=== PATIENT | female | born 1940 | race Caucasian/White ===

== ENCOUNTER 2017-04-15 16:14 | Emergency (ER) | payer MEDICARE, BC ==
--- NOTE | 2017-04-15 16:54 | EDM.PDOC ---
ED HPI GENERAL MEDICAL PROBLEM - General Chief Complaint: Gastrointestinal Problem Stated Complaint: wretching, chronic R shoulder pain Time Seen by Provider: 04/15/17 16:25 Source of Information: Reports: Patient, Family, Old Records History Limitations: Reports: No Limitations - History of Present Illness INITIAL COMMENTS - FREE TEXT/NARRATIVE: Makenzie comes to [facility] ED with a relapse of wretching over the past 2 weeks, worse since New Day. There is no emesis, gas, belching or burping. Sxs have been chronic and intermittent over the past 10 years since a Lap Johnathan with reported vagotomy were performed. She has seen GI specialists in the past without reported remedy. She has been med compliant with GI meds including Protonix, but has been off the Compazine for several months "because we didn't think she needed it". . She also reports chronic shoulder pain that seems worse on the R side lately, and is requesting a therapeutic injection. Right Shoulder Pain Score (Numeric/FACES): 6 - Related Data Allergies Allergy/AdvReac Type Severity Reaction Status Date / Time acetaminophen Allergy Cannot Verified 04/17/16 09:55 [From Darvocet-N] Remember bupropion [From Wellbutrin] Allergy Cannot Verified 04/17/16 09:55 Remember ciprofloxacin Allergy Cannot Verified 04/17/16 09:55 Remember codeine Allergy Hives Verified 04/17/16 09:55 cyclobenzaprine Allergy Cannot Verified 04/17/16 09:55 [Cyclobenzaprine] Remember diclofenac sodium Allergy Cannot Verified 04/17/16 09:55 [From Arthrotec 50] Remember feathers Allergy Cannot Verified 04/17/16 09:55 Remember flu vaccine ts (66 Allergy Cannot Verified 04/17/16 09:55 yr+) Remember [From Fluzone High-Dose (PF)] gabapentin [From Neurontin] Allergy Cannot Verified 04/17/16 09:55 Remember ibuprofen [From Motrin] Allergy Cannot Verified 04/17/16 09:55 Remember iodine Allergy Airway Verified 04/17/16 09:55 Tightness meperidine HCl [From Demerol] Allergy Cannot Verified 04/17/16 09:55 Remember misoprostol Allergy Cannot Verified 04/15/17 16:26 [From Arthrotec 50] Remember Penicillins Allergy Cannot Verified 04/15/17 16:26 Remember propoxyphene Allergy Cannot Verified 04/15/17 16:26 [From Darvocet-N] Remember pseudoephedrine HCl Allergy Cannot Verified 04/15/17 16:26 [From Advil Cold & Sinus] Remember shellfish derived Allergy Anaphylactic Verified 04/15/17 16:26 Shock Sulfa (Sulfonamide Allergy Hives Verified 04/15/17 16:26 Antibiotics) tetanus toxoid, adsorbed Allergy Cannot Verified 04/15/17 16:26 Remember venom-honey bee Allergy Anaphylactic Verified 04/15/17 16:26 Shock aspirin AdvReac STOMACH Verified 04/15/17 16:26 BLEEDING WITH TOO MUCH bupropion HCl AdvReac Cannot Verified 04/15/17 16:26 [From Wellbutrin] Remember celecoxib [From Celebrex] AdvReac Nausea and Verified 04/15/17 16:26 Vomiting clarithromycin AdvReac Diarrhea Verified 04/15/17 16:26 morphine AdvReac Hallucinati Verified 04/15/17 16:26 ons iodine-isopropyl Allergy Severe THROAT Uncoded 02/26/16 19:08 SWELLS SHUT EGGS Allergy Difficulty Uncoded 02/26/16 19:08 Breathing Home Meds: Home Meds ClonazePAM [KlonoPIN] 2 mg PO TID 11/13/13 [History] Mirtazapine [Remeron] 30 mg PO BEDTIME 11/13/13 [History] Pantoprazole [ProTONIX] 40 mg PO DAILY 05/01/14 [History] Calcium Carb/Vitamin D3/Vit K1 [Viactiv Soft Chew] 1 tab PO DAILY 01/22/16 [ History] Carboxymethylcellulos/Glycerin [Refresh Optive] 3 drop EYEBOTH DAILY 01/22/16 [ History] Cliradex 1 applic EYEBOTH Q7D 01/22/16 [History] Glucosam/MSM/Chond/Hyaluron Ac [Sv Glucosamine-Chondroitin Tab] 2 tab PO DAILY 01/22/16 [History] Ketotifen [Ketotifen 0.025% Ophth Soln] 1 drop EYEBOTH TID 01/22/16 [History] Loratadine 10 mg PO DAILY 01/22/16 [History] Lutein/Min/Vit C/Vit E Acetate [Ocuvite Lutein] 1 cap PO DAILY 01/22/16 [History ] Melatonin 10 mg PO BEDTIME 01/22/16 [History] Multivital 1 tab PO DAILY 01/22/16 [History] Potassium Bicarbonate/Cit Ac [Effer-K] 25 meq PO DAILY 01/22/16 [History] Prochlorperazine Maleate [Compazine] 10 mg PO QIDACANDBED 01/22/16 [History] Rosuvastatin [Crestor] 10 mg PO BEDTIME 01/22/16 [History] Sucralfate 1 gm PO DAILY 01/22/16 [History] Topiramate [Topamax] 100 mg PO BEDTIME 01/22/16 [History] cycloSPORINE [Restasis] 1 drop EYEBOTH BID 01/22/16 [History] lamoTRIgine [LaMICtal] 150 mg PO DAILY@1200 01/22/16 [History] traMADol [Ultram] 50 mg PO Q6H PRN #60 tablet 02/05/16 [Rx] Docusate Sodium/Sennosides [Senokot-S] 1 tab PO DAILY 02/26/16 [History] Zolpidem Tartrate [Ambien] 30 mg PO BEDTIME 02/26/16 [History] Pregabalin [Lyrica] 100 mg PO BID #30 cap 04/17/16 [Rx] Prochlorperazine [Compazine] 10 mg PO BID #30 tab MDD QID 04/15/17 [Rx] Past Medical History HEENT History: Reports: Cataract, Impaired Vision Cardiovascular History: Reports: Afib, High Cholesterol, Hypertension Respiratory History: Reports: SOB Gastrointestinal History: Reports: Other (See Below) Other Gastrointestinal History: cyclic retching 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: Musculoskeletal History: Reports: Other (See Below) Other Musculoskeletal History: rt shoulder pain Neurological History: Reports: CVA, TIA, Other (See Below) Other Neuro History: "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 and est[place] polio Psychiatric History: Reports: Anxiety, Depression Endocrine/Metabolic History: Reports: Diabetes, Type II Dermatologic History: Reports: Other (See Below) Other Dermatologic History: left ear skin leison - Infectious Disease History Infectious Disease History: Reports: Chicken Pox, Shingles - Past Surgical History HEENT Surgical History: Reports: Cataract Surgery GI Surgical History: Reports: Appendectomy, Johnathan Fundoplication Musculoskeletal Surgical History: Reports: Knee Replacement Social & Family History - Family History Family Medical History: Noncontributory - Tobacco Use Smoking Status *Q: Never Smoker Years of Tobacco use: 7 Second Hand Smoke Exposure: No - Caffeine Use Caffeine Use: Reports: None - Alcohol Use Days Per Week of Alcohol Use: 0 - Recreational Drug Use Recreational Drug Use: No ED ROS GENERAL - Review of Systems Review Of Systems: See Below Constitutional: Reports: Malaise, Decreased Appetite HEENT: Reports: No Symptoms Respiratory: Reports: No Symptoms Cardiovascular: Reports: No Symptoms Endocrine: Reports: No Symptoms GI/Abdominal: Reports: Decreased Appetite, Distension, Other (eructation) : Reports: No Symptoms Musculoskeletal: Reports: Shoulder Pain (chronic right) Skin: Reports: No Symptoms Psychiatric: Reports: Anxiety, Depression Hematologic/Lymphatic: Reports: No Symptoms Immunologic: Reports: No Symptoms ED EXAM, GI/ABD - Physical Exam Exam: See Below Exam Limited By: No Limitations General Appearance: Alert, WD/WN, Anxious, Mild Distress Eyes: Bilateral: Normal Appearance, EOMI Ears: Normal External Exam Nose: Normal Inspection Throat/Mouth: Normal Inspection, Normal Lips, Normal Teeth, Normal Oropharynx, No Airway Compromise Head: Atraumatic, Normocephalic Neck: Normal Inspection, Supple, Non-Tender, Full Range of Motion Respiratory/Chest: No Respiratory Distress, Lungs Clear, No Accessory Muscle Use , Chest Non-Tender Cardiovascular: Regular Rate, Rhythm, No Edema, No Murmur GI/Abdominal Exam: Soft, Non-Tender, No Organomegaly, No Mass, Distended (mild) , Abnormal Bowel Sounds (increased) (Female) Exam: Deferred Rectal (Female) Exam: Deferred Back Exam: Normal Inspection Extremities: Normal Inspection Neurological: Alert, Oriented, CN II-XII Intact, No Motor/Sensory Deficits Psychiatric: Anxious Skin Exam: Warm, Dry, Intact, Normal Color Lymphatic: No Adenopathy Course - Vital Signs Text/Narrative:: Following assessment at the [facility] ED, an IV route was secured with an indwelling veniport. She was administered 1L NS w 20 meq KCL over the next 2 hours, KCL 40 meq tab po, and Compazine 10 mg IM. Her eructations subsided over the next hour. Chronic R shoulder pain was managed with Hydrocodone 5/325 tab. Screening labs were reviewed following redraw because of suspected hemodilution through the veniport; acid-base status was stable. Last Recorded V/S: Last Vital Signs Temp 36.8 C 04/15/17 16:26 Pulse 61 04/15/17 19:29 Resp 14 04/15/17 19:29 BP 133/73 04/15/17 19:29 Pulse Ox 97 04/15/17 19:29 - Orders/Labs/Meds Orders: Active Orders 24 hr Category Date Time Status IRON AND IRON BINDING CAPACITY [REF] Stat Lab 04/15/17 17:45 Received RETIC AUTOMATED WITHOUT IRF [REF] Stat Lab 04/15/17 17:45 Received Labs: Laboratory Tests 04/15/17 04/15/17 04/15/17 Range/Units 17:05 17:05 17:45 WBC 3.2 L (4.5-12.0) X10-3/uL RBC 2.99 L (3.23-5.20) x10(6)uL Hgb 6.4 L* D (11.5-15.5) g/dL Hct 30.3 D (30.0-51.3) % MCV 101.5 H (80-96) fL MCH 21.3 L (27.7-33.6) pg MCHC 21.0 L (32.2-35.4) g/dL RDW 12.5 (11.5-15.5) % Plt Count 168 (125-369) X10(3)uL MPV 7.8 (7.4-10.4) fL Neut % (Auto) 45.8 L (46-82) % Lymph % (Auto) 40.4 H (13-37) % [place] % (Auto) 10.9 (4-12) % Eos % (Auto) 2 (1.0-5.0) % Baso % (Auto) 1 (0-2) % Neut # (Auto) 1.4 L (1.6-8.3) # Lymph # (Auto) 1.3 (0.6-5.0) # [place] # (Auto) 0.4 (0.0-1.3) # Eos # (Auto) 0.1 (0.0-0.8) # Baso # (Auto) 0.0 (0.0-0.2) # ABG pH (7.35-7.45) ABG pCO2 (35-45) mmHg ABG pO2 (83-108) mmHg ABG HCO3 (22-26) mmol/L ABG O2 Saturation (96-97) % ABG Base Excess (-2-2) Maulik Test O2 Delivery Device Sodium 151 H 144 (135-145) mmol/L Potassium 2.0 L* 3.7 D (3.5-5.3) mmol/L Chloride 121 H* 109 D (100-110) mmol/L Carbon Dioxide 17 L 24 (21-32) mmol/L BUN 10 14 (7-18) mg/dL Creatinine 0.6 1.2 H (0.55-1.02) mg/dL Est Cr Clr Drug Dosing 65.98 32.99 mL/min Estimated GFR (MDRD) > 60 44 L (>60) BUN/Creatinine Ratio 16.7 11.7 (9-20) Glucose 90 109 (80-116) mg/dL Calcium 5.2 L* 8.7 D (8.6-10.2) mg/dL Magnesium 2.0 (1.8-2.5) mg/dL Total Bilirubin 0.2 (0.1-1.3) mg/dL AST 15 (5-25) IU/L ALT 25 (12-36) U/L Alkaline Phosphatase 44 L (56-112) IU/L Creatine Kinase 35 L (60-160) IU/L Total Protein 5.4 L (6.0-8.0) g/dL Albumin 2.7 L (3.2-4.6) g/dL Globulin 2.7 g/dL Albumin/Globulin Ratio 1.0 04/15/17 04/15/17 Range/Units 17:45 17:52 WBC (4.5-12.0) X10-3/uL RBC (3.23-5.20) x10(6)uL Hgb 11.9 D (11.5-15.5) g/dL Hct 36.4 (30.0-51.3) % MCV (80-96) fL MCH (27.7-33.6) pg MCHC (32.2-35.4) g/dL RDW (11.5-15.5) % Plt Count (125-369) X10(3)uL MPV (7.4-10.4) fL Neut % (Auto) (46-82) % Lymph % (Auto) (13-37) % [place] % (Auto) (4-12) % Eos % (Auto) (1.0-5.0) % Baso % (Auto) (0-2) % Neut # (Auto) (1.6-8.3) # Lymph # (Auto) (0.6-5.0) # [place] # (Auto) (0.0-1.3) # Eos # (Auto) (0.0-0.8) # Baso # (Auto) (0.0-0.2) # ABG pH 7.41 (7.35-7.45) ABG pCO2 36 (35-45) mmHg ABG pO2 87 (83-108) mmHg ABG HCO3 22 (22-26) mmol/L ABG O2 Saturation 97 (96-97) % ABG Base Excess -1.6 (-2-2) Maulik Test Passed O2 Delivery Device Room air Sodium (135-145) mmol/L Potassium (3.5-5.3) mmol/L Chloride (100-110) mmol/L Carbon Dioxide (21-32) mmol/L BUN (7-18) mg/dL Creatinine (0.55-1.02) mg/dL Est Cr Clr Drug Dosing mL/min Estimated GFR (MDRD) (>60) BUN/Creatinine Ratio (9-20) Glucose (80-116) mg/dL Calcium (8.6-10.2) mg/dL Magnesium (1.8-2.5) mg/dL Total Bilirubin (0.1-1.3) mg/dL AST (5-25) IU/L ALT (12-36) U/L Alkaline Phosphatase (56-112) IU/L Creatine Kinase (60-160) IU/L Total Protein (6.0-8.0) g/dL Albumin (3.2-4.6) g/dL Globulin g/dL Albumin/Globulin Ratio Meds: Medications Discontinued Medications Generic Name Dose Route Start Last Admin Trade Name Freq PRN Reason Stop Dose Admin Hydrocodone Bitart/Acetaminophen 1 tab 04/15/17 18:34 04/15/17 18:38 [place] 325-5 Mg PO 04/15/17 18:35 1 tab ONETIME ONE Administration Heparin Sodium (Porcine) 500 units 04/15/17 17:12 04/15/17 19:24 Heparin Lock Flush 100 Units/Ml FLUSH 500 units ASDIRECTED PRN Administration flush port Sodium Chloride 1,000 mls @ 500 mls/hr 04/15/17 17:15 04/15/17 17:21 Normal Saline IV 500 mls/hr ASDIRECTED JUANA Administration Potassium Chloride/Sodium Chloride 1,000 mls @ 999 mls/hr 04/15/17 17:45 12/23 17:53 Normal Saline With 20 Meq Kcl IV 999 mls/hr ASDIRECTED JUANA Administration Sodium Chloride 250 mls @ 100 mls/hr 04/15/17 17:45 Normal Saline IV ASDIRECTED JUANA Potassium Chloride 40 meq 04/15/17 17:38 04/15/17 17:55 Klor-Con M20 PO 04/15/17 17:39 40 meq ONETIME ONE Administration Prochlorperazine Edisylate 10 mg 04/15/17 17:12 04/15/17 17:22 Compazine IM 04/15/17 17:13 10 mg ONETIME ONE Administration Sodium Chloride 10 ml 04/15/17 17:10 04/15/17 19:27 Saline Flush FLUSH 10 ml ASDIRECTED PRN Administration flush port Departure - Departure Time of Disposition: 20:30 Disposition: Home, Self-Care 01 Condition: Good Clinical Impression: Eructation, Chronic right shoulder pain - Discharge Information Prescriptions: Prochlorperazine [Compazine] 10 mg PO BID #30 tab MDD QID Referrals: Sissy Parks, PRINT FINISHING WORKER [Primary Care Provider] - Forms: ED Department Discharge - Problem List & Annotations (1) Eructation SNOMED Code(s): 925496230 Code(s): R14.2 - ERUCTATION Status: Acute Annotation/Comment:: I dispensed Compazine 10mg qam and qpm as prevention of relapse of eructation. She has been on this in the past, but discontinued last year when asx. (2) Hypokalemia SNOMED Code(s): 50098193 Code(s): E87.6 - HYPOKALEMIA Status: Acute Annotation/Comment:: Makenzie received KCl po and IV during ED visit, and can resume KCl po per PCP. (3) Shoulder joint pain SNOMED Code(s): 725044641 Code(s): M25.519 - PAIN IN UNSPECIFIED SHOULDER Status: Chronic Annotation/Comment:: Tramadol and Tylenol prn. continued home ROM exercises and home OT through [facility] for help with ADLs such as ROM, strengthen, cares for knee and dressing. I suggested an Orthopedic Consult regarding R shoulder pain, and an appt will be pursued on her behalf. - Problem List Review Problem List Initiated/Reviewed/Updated: Yes - My Orders Last 24 Hours: My Active Orders 04/15/17 17:45 IRON AND IRON BINDING CAPACITY [REF] Stat RETIC AUTOMATED WITHOUT IRF [REF] Stat - Assessment/Plan Last 24 Hours: My Active Orders 04/15/17 17:45 IRON AND IRON BINDING CAPACITY [REF] Stat RETIC AUTOMATED WITHOUT IRF [REF] Stat Plan: Follow up with PCP.
[2017-04-15] MEDS ORDERED: Prochlorperazine 10 MG/2 ML SDV IM ONE (17:12)
[2017-04-15] MEDS: Sodium Chloride 0.9% 10 ML Syringe FLUSH PRN ×2 (17:14→19:27)
[2017-04-15] MEDS ORDERED: Sodium Chloride 0.9% 1,000 ML IV SCH (17:15)
[2017-04-15] MEDS ORDERED: Potassium Chloride 20 MEQ Tab.ER PO ONE (17:38)
[2017-04-15] MEDS ORDERED: Sodium Chloride 0.9% 250 ML IV SCH (17:45)
[2017-04-15] MEDS ORDERED: NS + KCl 20mEq/L 1,000 ML IV SCH (17:45)
[2017-04-15] MEDS ORDERED: Acetaminophen/HYDROcodone 325-5 MG Tab PO ONE (18:34)
[2017-04-15 19:30] VITALS: BP 133/73
[2017-04-20 10:14] LABS: UNSATURATED IRON BIND CAPACITY 151 ug/dL (112-347)
== END 2017-04-15 19:28 | disposition home or self-care (01) ==
LOC: FB.ED 16:14
DX: M25.511 Pain in right shoulder (principal); G89.29 Other chronic pain; R14.2 Eructation; I10 Essential (primary) hypertension; E78.00 Pure hypercholesterolemia, unspecified; E11.9 Type 2 diabetes mellitus without complications; F32.9 Major depressive disorder, single episode, unspecified; Z79.899 Other long term (current) drug therapy; Z88.1 Allergy status to other antibiotic agents; Z88.2 Allergy status to sulfonamides; Z88.7 Allergy status to serum and vaccine; Z88.8 Allergy status to other drugs, medicaments and biological substances; Z91.030 Bee allergy status; Z91.013 Allergy to seafood; Z91.012 Allergy to eggs; Z88.5 Allergy status to narcotic agent; Z88.6 Allergy status to analgesic agent; Z88.0 Allergy status to penicillin; Z91.048 Other nonmedicinal substance allergy status
CPT/HCPCS: 80048; 80053; 82550; 82803; 83540; 83550; 83735; 85014; 85018; 85025; 85045; 96361; 96365; 96366; 96372; 99284; A9270; J0780; J1642; J3480; J7040; J7050; 36600

== ENCOUNTER 2017-05-11 11:13 | Emergency (ER) | payer MEDICARE, BC ==
--- NOTE | 2017-05-11 12:30 | EDM.PDOC ---
ED HPI GENERAL MEDICAL PROBLEM - General Chief Complaint: Genitourinary Problem Stated Complaint: BLADDER INFECTION Time Seen by Provider: 05/11/17 11:13 Source of Information: Reports: Patient, Family History Limitations: Reports: No Limitations - History of Present Illness INITIAL COMMENTS - FREE TEXT/NARRATIVE: 77 y.o.w.deana came to the ED with painful urinations, which she has about every 4 months. No N/V/D or any other acute medical issues. BP 149/68 pulse 78 RR 18 Pulse ox 100% Temp 98.2 Onset Date: 05/08/17 Onset Time: 06:00 Duration: Day(s): Location: Reports: Pelvis Quality: Reports: Burning Severity: Mild Improves with: Reports: Rest Context: Reports: Other (frequent UTIs) Lower Abdominal Pain Score (Numeric/FACES): 4 - Related Data Allergies Allergy/AdvReac Type Severity Reaction Status Date / Time acetaminophen Allergy Cannot Verified 05/11/17 11:26 [From Darvocet-N] Remember bupropion [From Wellbutrin] Allergy Cannot Verified 05/11/17 11:26 Remember ciprofloxacin Allergy Cannot Verified 05/11/17 11:26 Remember codeine Allergy Hives Verified 05/11/17 11:26 cyclobenzaprine Allergy Cannot Verified 05/11/17 11:26 [Cyclobenzaprine] Remember diclofenac sodium Allergy Cannot Verified 05/11/17 11:26 [From Arthrotec 50] Remember feathers Allergy Cannot Verified 05/11/17 11:26 Remember flu vaccine ts (65 Allergy Cannot Verified 05/11/17 11:26 yr+) Remember [From Fluzone High-Dose (PF)] gabapentin [From Neurontin] Allergy Cannot Verified 05/11/17 11:26 Remember ibuprofen [From Motrin] Allergy Cannot Verified 05/11/17 11:26 Remember iodine Allergy Airway Verified 05/11/17 11:26 Tightness meperidine HCl [From Demerol] Allergy Cannot Verified 05/11/17 11:26 Remember misoprostol Allergy Cannot Verified 05/11/17 11:26 [From Arthrotec 50] Remember Penicillins Allergy Cannot Verified 05/11/17 11:26 Remember propoxyphene Allergy Cannot Verified 05/11/17 11:26 [From Darvocet-N] Remember pseudoephedrine HCl Allergy Cannot Verified 05/11/17 11:26 [From Advil Cold & Sinus] Remember shellfish derived Allergy Anaphylactic Verified 05/11/17 11:26 Shock Sulfa (Sulfonamide Allergy Hives Verified 05/11/17 11:26 Antibiotics) tetanus toxoid, adsorbed Allergy Cannot Verified 05/11/17 11:26 Remember venom-honey bee Allergy Anaphylactic Verified 05/11/17 11:26 Shock aspirin AdvReac STOMACH Verified 05/11/17 11:26 BLEEDING WITH TOO MUCH bupropion HCl AdvReac Cannot Verified 05/11/17 11:26 [From Wellbutrin] Remember celecoxib [From Celebrex] AdvReac Nausea and Verified 05/11/17 11:26 Vomiting clarithromycin AdvReac Diarrhea Verified 05/11/17 11:26 morphine AdvReac Hallucinati Verified 05/11/17 11:26 ons iodine-isopropyl Allergy Severe THROAT Uncoded 05/11/17 11:26 SWELLS SHUT EGGS Allergy Difficulty Uncoded 05/11/17 11:26 Breathing Home Meds: Home Meds ClonazePAM [KlonoPIN] 2 mg PO TID PRN 11/13/13 [History] Mirtazapine [Remeron] 30 mg PO BEDTIME 11/13/13 [History] Pantoprazole [ProTONIX] 40 mg PO DAILY 05/01/14 [History] Calcium Carb/Vitamin D3/Vit K1 [Viactiv Soft Chew] 1 tab PO DAILY 01/22/16 [ History] Carboxymethylcellulos/Glycerin [Refresh Optive] 3 drop EYEBOTH DAILY 01/22/16 [ History] Cliradex 1 applic EYEBOTH Q7D 01/22/16 [History] Glucosam/MSM/Chond/Hyaluron Ac [Sv Glucosamine-Chondroitin Tab] 2 tab PO DAILY 01/22/16 [History] Ketotifen [Ketotifen 0.025% Ophth Soln] 1 drop EYEBOTH DAILY 01/22/16 [History] Loratadine 10 mg PO DAILY 01/22/16 [History] Lutein/Min/Vit C/Vit E Acetate [Ocuvite Lutein] 1 cap PO DAILY 01/22/16 [History ] Melatonin 10 mg PO BEDTIME 01/22/16 [History] Multivital 1 tab PO DAILY 01/22/16 [History] Potassium Bicarbonate/Cit Ac [Effer-K] 25 meq PO DAILY 10/17/16 [History] Rosuvastatin [Crestor] 10 mg PO BEDTIME 01/22/16 [History] Sucralfate 1 gm PO DAILY 01/22/16 [History] Topiramate [Topamax] 100 mg PO BEDTIME 01/22/16 [History] cycloSPORINE [Restasis] 1 drop EYEBOTH DAILY 01/22/16 [History] lamoTRIgine [LaMICtal] 150 mg PO DAILY@1200 01/22/16 [History] traMADol [Ultram] 50 mg PO Q6H PRN #60 tablet 02/05/16 [Rx] Docusate Sodium/Sennosides [Senokot-S] 1 tab PO DAILY 02/26/16 [History] Zolpidem Tartrate [Ambien] 30 mg PO BEDTIME 02/26/16 [History] Pregabalin [Lyrica] 100 mg PO BID #30 cap 04/17/16 [Rx] Azithromycin 600 mg PO DAILY #6 tablet 05/11/17 [Rx] Metoclopramide HCl 10 mg PO Q6H PRN 05/11/17 [History] Ondansetron 4 mg PO Q4H PRN 05/11/17 [History] Past Medical History HEENT History: Reports: Cataract, Impaired Vision Cardiovascular History: Reports: Afib, High Cholesterol, Hypertension Respiratory History: Reports: SOB Gastrointestinal History: Reports: Other (See Below) Other Gastrointestinal History: cyclic retching 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: Musculoskeletal History: Reports: Other (See Below) Other Musculoskeletal History: rt shoulder pain Neurological History: Reports: CVA, TIA, Other (See Below) Other Neuro History: "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 and palest[place] polio Psychiatric History: Reports: Anxiety, Depression Endocrine/Metabolic History: Reports: Diabetes, Type II Dermatologic History: Reports: Other (See Below) Other Dermatologic History: left ear skin leison - Infectious Disease History Infectious Disease History: Reports: Chicken Pox, Shingles - Past Surgical History HEENT Surgical History: Reports: Cataract Surgery GI Surgical History: Reports: Appendectomy, Johnathan Fundoplication Musculoskeletal Surgical History: Reports: Knee Replacement Social & Family History - Family History Family Medical History: Noncontributory - Tobacco Use Smoking Status *Q: Never Smoker Years of Tobacco use: 7 Second Hand Smoke Exposure: No - Caffeine Use Caffeine Use: Reports: None - Alcohol Use Days Per Week of Alcohol Use: 0 - Recreational Drug Use Recreational Drug Use: No ED ROS GENERAL - Review of Systems Review Of Systems: See Below Constitutional: Reports: No Symptoms HEENT: Reports: No Symptoms Respiratory: Reports: No Symptoms Cardiovascular: Reports: No Symptoms Endocrine: Reports: No Symptoms GI/Abdominal: Reports: No Symptoms : Reports: Dysuria Musculoskeletal: Reports: No Symptoms Skin: Reports: No Symptoms Neurological: Reports: No Symptoms Psychiatric: Reports: No Symptoms Hematologic/Lymphatic: Reports: No Symptoms Immunologic: Reports: No Symptoms ED EXAM, RENAL/ - Physical Exam Exam: See Below Exam Limited By: No Limitations General Appearance: Alert, WD/WN, Mild Distress Eye Exam: Bilateral Eye: Normal Inspection Ears: Normal External Exam Nose: Normal Inspection Throat/Mouth: Normal Inspection Head: Atraumatic, Normocephalic Neck: Normal Inspection, Supple, Non-Tender, Full Range of Motion Respiratory/Chest: No Respiratory Distress Cardiovascular: Normal Peripheral Pulses, Regular Rate, Rhythm, No Edema GI/Abdominal: Normal Bowel Sounds, Soft, Tender (Female) Exam: Deferred Rectal (Female) Exam: Deferred Back Exam: Normal Inspection, Full Range of Motion Extremities: Normal Inspection, Normal Range of Motion, Non-Tender, No Pedal Edema Neurological: Alert, Oriented, CN II-XII Intact, Normal Cognition, Normal Gait, No Motor/Sensory Deficits Psychiatric: Normal Affect, Normal Mood Skin Exam: Warm, Dry, Intact, Normal Color, No Rash Lymphatic: No Adenopathy Course - Vital Signs Text/Narrative:: 77 y.o.w.deana came to the ED with painful urinations, which she has about every 4 months. No N/V/D or any other acute medical issues. BP 149/68 pulse 78 RR 18 Pulse ox 100% Temp 98.2, Multiple drug allergies PE: WNWD W F NAD Labs: UA pos for UTI, UCX is pending Impression: UTI Tx: Zithromax Reexam: Improved, meds were given as a prescription Plan: D/C with instructions - Orders/Labs/Meds Orders: Active Orders 24 hr Category Date Time Status CULTURE URINE [RM] Stat Lab 05/11/17 11:40 Received Labs: Laboratory Tests 05/11/17 Range/Units 11:40 Urine Color Yellow (YELLOW) Urine Appearance Slightly cloudy (CLEAR) Urine pH 7.0 H (5.0-6.5) Ur Specific [place] 1.015 (1.010-1.025) Urine Protein Negative (NEGATIVE) mg/dL Urine Glucose (UA) Normal (NEGATIVE) mg/dL Urine Ketones Negative (NEGATIVE) mg/dL Urine Occult Blood Negative (NEGATIVE) Urine Nitrite Negative (NEGATIVE) Urine Bilirubin Negative (NEGATIVE) Urine Urobilinogen Normal (NEGATIVE) mg/dL Ur Leukocyte Esterase Small H (NEGATIVE) Urine RBC Not seen (0) Urine WBC 0-5 (0) Ur Squamous Epith Cells Rare (NS,R,O) Amorphous Sediment Many Urine Bacteria Few H (NS) Departure - Departure Time of Disposition: 12:27 Disposition: Home, Self-Care 01 Condition: Good Clinical Impression: UTI (urinary tract infection) Qualifiers: Urinary tract infection type: acute cystitis Hematuria presence: without hematuria Qualified Code(s): N30.00 - Acute cystitis without hematuria - Discharge Information Prescriptions: Azithromycin 600 mg PO DAILY #6 tablet Instructions: Urinary Tract Infection, Adult Referrals: Sissy Parks, PRODUCT MARKETING ANALYST [Primary Care Provider] - Forms: ED Department Discharge Additional Instructions: Please increase water intake, take the meds as recommended, please f/u, come back if your symptoms get worse acutely. - My Orders Last 24 Hours: My Active Orders 05/11/17 11:40 CULTURE URINE [RM] Stat - Assessment/Plan Last 24 Hours: My Active Orders 05/11/17 11:40 CULTURE URINE [RM] Stat
[2017-05-11 19:41] VITALS: BP 149/65
== END 2017-05-11 12:41 | disposition home or self-care (01) ==
LOC: FB.ED 11:13
DX: N30.00 Acute cystitis without hematuria (principal); E78.00 Pure hypercholesterolemia, unspecified; I48.91 Unspecified atrial fibrillation; I10 Essential (primary) hypertension; E11.9 Type 2 diabetes mellitus without complications; F32.9 Major depressive disorder, single episode, unspecified; Z88.5 Allergy status to narcotic agent; Z88.8 Allergy status to other drugs, medicaments and biological substances; Z88.7 Allergy status to serum and vaccine; Z88.0 Allergy status to penicillin; Z88.2 Allergy status to sulfonamides; Z91.030 Bee allergy status; Z88.6 Allergy status to analgesic agent; Z88.1 Allergy status to other antibiotic agents; Z91.012 Allergy to eggs; Z79.899 Other long term (current) drug therapy
CPT/HCPCS: 81001; 87086; 99283

== ENCOUNTER 2017-05-16 18:28 | Emergency (ER) | payer MEDICARE, BC ==
[2017-05-16] MEDS ORDERED: Magnesium Citrate Solution 296 ML Bottle PO ONE ×2 (18:29→20:51)
[2017-05-16 19:03] VITALS: BP 157/88
[2017-05-16] MEDS ORDERED: Magnesium Citrate Solution 296 ML Bottle ONE (20:50)
--- NOTE | 2017-05-19 10:45 | CR ---
INDICATION: Constipation, abdominal pain. ABDOMEN: Two supine views of the abdomen were obtained, revealing minimal, if any gas in the area of the rectum. Moderately prominent amount of stool is noted in the colon, with no significant distention of the colon. Small bowel loops, however, appear to be somewhat distended x3 or x4. The possibility of a distal colonic obstruction would be a consideration and findings should be correlated clinically. Follow-up studies, such as a repeat x-ray of the abdomen with supine and upright views, may be helpful. Otherwise, no organomegaly, mass lesions, or non-vascular pathologic calcifications were identified. There is evidence of previous cholecystectomy with multiple clips at the area of the cystic duct. There are a few phleboliths in the pelvis. Degenerative changes are noted at the hips and to a lesser extent in the spine, but with evidence of degenerative disk disease in the mid to lower lumbar spine. IMPRESSION: Cannot exclude an obstructive process in the distal colon. Findings should be correlated clinically. Follow-up studies may be warranted. MTDD
--- NOTE | 2017-05-19 11:40 | ER ---
DATE SEEN: 05/16/2017 TIME SEEN: The patient was seen at 1838 hours. HISTORY OF PRESENT ILLNESS: This is a 77-year-old diabetic, who has had previous TIA, dysthymia, insomnia, urinary tract infections, chronic right shoulder pain, hypertension, and has multiple allergies. Presents this evening. having tried 3 soapsuds enemas and 2 Fleet enemas to get her pass her stool. She feels she is constipated. Has not had a stool for 3 days. She apparently went to a walk-in clinic and was transferred to the hospital ED for further evaluation. PAST MEDICAL HISTORY: Significant for a lap Johnathan surgery, intermittent hypoglycemia secondary to poor nutrition. The patient has limited p.o. intake. TIA, shingles, knee arthritis, dysthymia, anxiety, previous cyclical vomiting syndrome diagnosed. Uses hearing aids. She has not had any vomiting associated with the constipation. The patient is concerned that her brother had colon polyps and has some polyps removed every year. Wonders if she has a colon polyp developing. She has been told that we could not utilize bowel prep for colonoscopy because she has such a limited size of stomach, and for that reason, she has not had a colonoscopy for years. She has extensive anxiety. ALLERGIES: Has extensive allergies. Acetaminophen, Wellbutrin, ciprofloxacin, codeine, cyclobenzaprine, diclofenac, feathers, flu vaccine, gabapentin, ibuprofen, iodine, Demerol, misoprostol, penicillin, propoxyphene, Sudafed, sulfa, tetanus, bee venom, honey, aspirin, celecoxib, clarithromycin, iodine, eggs. CURRENT MEDICATIONS: 1. Klonopin. 2. Loratadine. 3. Refresh Optive. 4. Calcium carbonate with vitamin D. 5. Ketotifen 0.025% ophthalmic solution. 6. Glucosamine. 7. Senokot-S. 8. Cliradex. 9. Multivitamins. 10.Remeron. 11.Metoclopramide. 12.Melatonin. 13.Lutein. 14.Pregabalin. 15.Potassium bicarbonate. 16.Protonix. 17.Zofran. 18.Cyclosporine. 19.Zolpidem. 20.Topiramate. 21.Sucralfate. 22.Rosuvastatin (Crestor). 23.Tramadol. 24.Lamotrigine. 25.Lactulose. REVIEW OF SYSTEMS: As noted above. PHYSICAL EXAMINATION: VITAL SIGNS: 89 heart rate and regular, blood pressure 157/88, respirations 18, oxygen saturation 100%, temperature is 36.7 degrees. Weight 65.7 kg. GENERAL: Pleasant woman who talks loudly and her talked quite actively. He is somewhat impatient to have her seen. HEENT: TMs normal appearance. Pharynx without abnormality. She wears glasses. She had a face mask on, but she is not coughing. She had the face mask on so that she does not catch the virus in the emergency room. NECK: Supple. No thyromegaly. No bruits in the neck. LUNGS: Clear without rales or rhonchi. HEART: S1, S2. No murmur. ABDOMEN: Soft. No guarding. No abdominal discomfort. No masses palpated in the abdomen, there is mild fullness of the left lower quadrant between the left mid and left lower quadrant. Bowel sounds hyperactive. Moderate tympany in the upper half of the abdomen. LOWER EXTREMITIES: Without abnormality. LABORATORY STUDIES: White count normal at 9700, PMNs normal 63, lymphocytes 27, monos 9, eosinophils 1, platelets 261,000, hemoglobin 15. Complete metabolic panel: BUN 24, creatinine 1.2. GFR estimated 44 (stage 3 chronic kidney disease). Sodium, potassium, chloride, and bicarb are normal. Alanine transaminase trace elevated 47, AST is normal at 24. TSH is 2.2. IMAGING DATA: X-ray reveals stool in the left lower quadrant, it is mild. She has extensive gas in the small bowel. Has filling of the small bowel. No CVA percussion tenderness. Pelvic was not performed. Rectal not performed. ASSESSMENT: 1. It is difficult to say if the patient has bowel obstruction. There is no suggestion of air-fluid levels on x-ray. The probability is very low. She has not been vomiting. It would be very difficult for her to vomit because she has a Johnathan. 2. I am concerned about the possibility of stool in the left lower quadrant is held up or limits bowl passage and may be polyp or ther lesion , that to date has never been proved or disproved. Since she has not had colonoscopy for many years, further evaluation from a violin mechanic or surgeon is in order to prove that there is no other polyp or other napkin ring lesion abnormality. 3. Her brother has significant polyps and has colonoscopy every year. 4. With the Johnathan, she has difficulty swallowing a bowel prep for the colonoscopy. Perhaps the colonoscopist would have a use of Prostigmin and/or other agents that might be help to empty the colon. I did not proceed with a CAT scan without IV contrast this evening. She has extensive allergies: She has a history of iodine allergy causing airway tightness and swelling. This may preclude IV contrast but I would think she could get along with oral contrast. A CAT scan with delayed swallowed contrast may be appropriate. The patient needs futther gastrointestinal consultation. PLAN: The patient to receive magnesium citrate 10 ounces. If not improved, start lactulose 30 mL b.i.d. until stooling, and if stooling stabilized, then forego further lower dose lactulose to maintain bowel regularity. Follow up with her doctor in the next 24 to 72 hours and also make a call to violin mechanic in [place] to make future appointments. She is going to need further followup with colonoscopy. History of hypoglycemia, which also makes bowel prep use difficult. DIAGNOSIS: 1. Status post old Johnathan surgery with concern for colon polyp or partial bowel obstruction. 2. Psychological need for stooling when its possible she is over-fixated on stooling. /[id number] TOOTIE/FITO WARD
== END 2017-05-16 20:56 | disposition home or self-care (01) ==
LOC: FB.ED 18:28
DX: K59.00 Constipation, unspecified (principal); I10 Essential (primary) hypertension; F41.9 Anxiety disorder, unspecified; M17.10 Unilateral primary osteoarthritis, unspecified knee; Z98.890 Other specified postprocedural states; Z86.73 Personal history of transient ischemic attack (TIA), and cerebral infarction without residual deficits; Z88.1 Allergy status to other antibiotic agents; Z88.6 Allergy status to analgesic agent; Z88.0 Allergy status to penicillin; Z88.2 Allergy status to sulfonamides; Z91.030 Bee allergy status; Z91.012 Allergy to eggs; Z88.5 Allergy status to narcotic agent; Z91.048 Other nonmedicinal substance allergy status
CPT/HCPCS: 36415; 74018; 80053; 84443; 85025; 99283; A9270

== ENCOUNTER 2017-09-08 20:49 | Emergency (ER) | payer MEDICARE, BC ==
[2017-09-08] MEDS ORDERED: Alum Hydroxide/Mag Hydroxide 30 ML, Lidocaine 2% 15 ML PO ONE ×2 (22:45)
[2017-09-08] MEDS ORDERED: Sodium Chloride 0.9% 10 ML Syringe IV ONE (23:08)
== END 2017-09-08 23:15 | disposition home or self-care (01) ==
LOC: FB.ED 20:49
DX: K21.9 Gastro-esophageal reflux disease without esophagitis (principal); E86.0 Dehydration; F41.9 Anxiety disorder, unspecified; R79.89 Other specified abnormal findings of blood chemistry
CPT/HCPCS: 36415; 80048; 82150; 85025; 86140; 99284; A9270; J1642; J7050

== ENCOUNTER 2017-12-28 08:22 | Emergency (ER) | payer MEDICARE, BC ==
--- NOTE | 2017-12-28 08:53 | EDM.PDOC ---
ED HPI GENERAL MEDICAL PROBLEM - General Chief Complaint: Genitourinary Problem Stated Complaint: UTI Time Seen by Provider: 12/28/17 08:50 Source of Information: Reports: Patient History Limitations: Reports: No Limitations - History of Present Illness INITIAL COMMENTS - FREE TEXT/NARRATIVE: Complains of dysuria, urgency, urinary frequency and suprapubic pain since yesterday. Also c/o nausea, however this is a chronic issue. Denies F/C. Onset Date: 12/27/17 Duration: Day(s): (2) Severity: Moderate suprapubic Pain Score (Numeric/FACES): 8 - Related Data Allergies Allergy/AdvReac Type Severity Reaction Status Date / Time acetaminophen Allergy Cannot Verified 12/28/17 08:45 [From Darvocet-N] Remember bupropion [From Wellbutrin] Allergy Cannot Verified 12/28/17 08:45 Remember ciprofloxacin Allergy Cannot Verified 12/28/17 08:45 Remember codeine Allergy Hives Verified 12/28/17 08:45 cyclobenzaprine Allergy Cannot Verified 12/28/17 08:45 [Cyclobenzaprine] Remember diclofenac sodium Allergy Cannot Verified 12/28/17 08:45 [From Arthrotec 50] Remember feathers Allergy Cannot Verified 12/28/17 08:45 Remember flu vaccine ts (65 Allergy Cannot Verified 12/28/17 08:45 yr+) Remember [From Fluzone High-Dose (PF)] gabapentin [From Neurontin] Allergy Cannot Verified 12/28/17 08:45 Remember ibuprofen [From Motrin] Allergy Cannot Verified 12/28/17 08:45 Remember iodine Allergy Airway Verified 12/28/17 08:45 Tightness meperidine HCl [From Demerol] Allergy Cannot Verified 12/28/17 08:45 Remember misoprostol Allergy Cannot Verified 12/28/17 08:45 [From Arthrotec 50] Remember Penicillins Allergy Cannot Verified 12/28/17 08:45 Remember propoxyphene Allergy Cannot Verified 12/28/17 08:45 [From Darvocet-N] Remember pseudoephedrine HCl Allergy Cannot Verified 12/28/17 08:45 [From Advil Cold & Sinus] Remember shellfish derived Allergy Anaphylactic Verified 12/28/17 08:45 Shock Sulfa (Sulfonamide Allergy Hives Verified 12/28/17 08:45 Antibiotics) tetanus toxoid, adsorbed Allergy Cannot Verified 12/28/17 08:45 Remember venom-honey bee Allergy Anaphylactic Verified 12/28/17 08:45 Shock aspirin AdvReac STOMACH Verified 12/28/17 08:45 BLEEDING WITH TOO MUCH bupropion HCl AdvReac Cannot Verified 12/28/17 08:45 [From Wellbutrin] Remember celecoxib [From Celebrex] AdvReac Nausea and Verified 12/28/17 08:45 Vomiting clarithromycin AdvReac Diarrhea Verified 12/28/17 08:45 morphine AdvReac Hallucinati Verified 12/28/17 08:45 ons iodine-isopropyl Allergy Severe THROAT Uncoded 12/28/17 08:45 SWELLS SHUT EGGS Allergy Intermediate Difficulty Uncoded 12/28/17 08:45 Breathing Home Meds: Home Meds ClonazePAM [KlonoPIN] 2 mg PO TID PRN 11/13/13 [History] Mirtazapine [Remeron] 30 mg PO BEDTIME 11/13/13 [History] Pantoprazole [ProTONIX] 40 mg PO DAILY 05/01/14 [History] Calcium Carb/Vitamin D3/Vit K1 [Viactiv Soft Chew] 1 tab PO DAILY 01/22/16 [ History] Carboxymethylcellulos/Glycerin [Refresh Optive] 3 drop EYEBOTH DAILY 01/22/16 [ History] Cliradex 1 applic EYEBOTH Q7D 01/22/16 [History] Glucosam/MSM/Chond/Hyaluron Ac [Sv Glucosamine-Chondroitin Tab] 2 tab PO DAILY 01/22/16 [History] Ketotifen [Ketotifen 0.025% [facility]] 1 drop EYEBOTH DAILY 01/22/16 [History] Loratadine 10 mg PO DAILY 01/22/16 [History] Lutein/Min/Vit C/Vit E Acetate [Ocuvite Lutein] 1 cap PO DAILY 01/22/16 [History ] Melatonin 10 mg PO BEDTIME 01/22/16 [History] Multivital 1 tab PO DAILY 01/22/16 [History] Potassium Bicarbonate/Cit Ac [Effer-K] 25 meq PO DAILY 01/22/16 [History] Rosuvastatin [Crestor] 10 mg PO BEDTIME 01/22/16 [History] Sucralfate 1 gm PO DAILY 01/22/16 [History] Topiramate [Topamax] 100 mg PO BEDTIME 01/22/16 [History] cycloSPORINE [Restasis] 1 drop EYEBOTH DAILY 01/22/16 [History] lamoTRIgine [LaMICtal] 150 mg PO DAILY@1200 01/22/16 [History] traMADol [Ultram] 50 mg PO Q6H PRN #60 tablet 02/05/16 [Rx] Docusate Sodium/Sennosides [Senokot-S] 1 tab PO DAILY 02/26/16 [History] Zolpidem Tartrate [Ambien] 30 mg PO BEDTIME 02/26/16 [History] Pregabalin [Lyrica] 100 mg PO BID #30 cap 04/17/16 [Rx] Ondansetron 4 mg PO Q4H PRN 05/11/17 [History] Lactulose [Cephulac] 30 ml PO BID #10 cup 05/16/17 [Rx] Nitrofurantoin Monohyd/M-Cryst [Macrobid 100 mg Capsule] 100 mg PO BID #14 capsule 12/28/17 [Rx] Phenazopyridine HCl [Pyridium] 100 mg PO TID PRN #6 tablet 12/28/17 [Rx] Past Medical History HEENT History: Reports: Cataract, Impaired Vision Cardiovascular History: Reports: Afib, High Cholesterol, Hypertension Respiratory History: Reports: SOB Gastrointestinal History: Reports: Chronic Constipation, Other (See Below) Other Gastrointestinal History: cyclic retching BOAT HOP History: Reports: Musculoskeletal History: Reports: Other (See Below) Other Musculoskeletal History: rt shoulder pain Neurological History: Reports: CVA, TIA, Other (See Below) Other Neuro History: "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 Psychiatric History: Reports: Anxiety, Depression Endocrine/Metabolic History: Reports: Diabetes, Type II Dermatologic History: Reports: Other (See Below) Other Dermatologic History: left ear skin leison - Infectious Disease History Infectious Disease History: Reports: Chicken Pox, Shingles - Past Surgical History HEENT Surgical History: Reports: Cataract Surgery, Other (See Below) Other HEENT Surgeries/Procedures: cleft lip surgury GI Surgical History: Reports: Appendectomy, Johnathan Fundoplication Musculoskeletal Surgical History: Reports: Knee Replacement Social & Family History - Family History Family Medical History: Noncontributory - Tobacco Use Smoking Status *Q: Never Smoker - Caffeine Use Caffeine Use: Reports: None - Alcohol Use Alcohol Use History: No ED ROS GENERAL - Review of Systems Review Of Systems: ROS reveals no pertinent complaints other than HPI. ED EXAM, RENAL/ - Physical Exam Exam: See Below Exam Limited By: No Limitations General Appearance: Alert, WD/WN, No Apparent Distress Ears: Normal External Exam Nose: Normal Inspection Throat/Mouth: No Airway Compromise Head: Atraumatic, Normocephalic Neck: Full Range of Motion Respiratory/Chest: No Respiratory Distress, Lungs Clear, Normal Breath Sounds Cardiovascular: Regular Rate, Rhythm, No Murmur GI/Abdominal: Normal Bowel Sounds, No Distention, Tender (mild suprapubic) (Female) Exam: Deferred Rectal (Female) Exam: Deferred Back Exam: Full Range of Motion Extremities: Normal Range of Motion Neurological: Alert, Normal Cognition, No Motor/Sensory Deficits Psychiatric: Normal Affect, Normal Mood Skin Exam: Warm, Dry, Intact Course - Vital Signs Last Recorded V/S: Last Vital Signs Temp 36.8 C 12/28/17 08:30 Pulse 85 12/28/17 08:30 Resp 17 12/28/17 08:30 BP 157/62 H 12/28/17 08:30 Pulse Ox 99 12/28/17 08:30 - Orders/Labs/Meds Orders: Active Orders 24 hr Category Date Time Status CULTURE URINE [RM] Stat Lab 12/28/17 08:59 Ordered Labs: Laboratory Tests 12/28/17 Range/Units 08:36 Urine Color Yellow (YELLOW) Urine Appearance Cloudy (CLEAR) Urine pH 5.0 (5.0-6.5) Ur Specific [place] 1.025 (1.010-1.025) Urine Protein 100 H (NEGATIVE) mg/dL Urine Glucose (UA) Normal (NEGATIVE) mg/dL Urine Ketones Negative (NEGATIVE) mg/dL Urine Occult Blood Large H (NEGATIVE) Urine Nitrite Negative (NEGATIVE) Urine Bilirubin Negative (NEGATIVE) Urine Urobilinogen Normal (NEGATIVE) mg/dL Ur Leukocyte Esterase Large H (NEGATIVE) Urine RBC >100 H (0) Urine WBC >100 H (0) Urine Bacteria Many H (NS) Meds: Medications Discontinued Medications Generic Name Dose Route Start Last Admin Trade Name Freq PRN Reason Stop Dose Admin Nitrofurantoin Macrocrystals 100 mg 12/28/17 09:00 Macrobid PO 12/28/17 09:01 ONETIME ONE Phenazopyridine HCl 95 mg 12/28/17 09:01 Urinary Pain Relief PO 12/28/17 09:02 ONETIME ONE Departure - Departure Time of Disposition: 09:05 Disposition: Home, Self-Care 01 Condition: Good Clinical Impression: UTI, Urinary tract infectious disease - Discharge Information *PRESCRIPTION DRUG MONITORING PROGRAM REVIEWED*: No *COPY OF PRESCRIPTION DRUG MONITORING REPORT IN PATIENT ANNY: Not Applicable Prescriptions: Nitrofurantoin Monohyd/M-Cryst [Macrobid 100 mg Capsule] 100 mg PO BID #14 capsule Phenazopyridine HCl [Pyridium] 100 mg PO TID PRN #6 tablet PRN Reason: Dysuria Instructions: Urinary Tract Infection, Adult, [id number] Referrals: Sissy Parks, [employer] [Primary Care Provider] - Forms: ED Department Discharge Additional Instructions: Drink plenty of fluids. Fill prescription for Macrobid and Pyridium and take as directed. Follow up if symptoms don't improve in 2 days. Return to the ER if symptoms worsen. - My Orders Last 24 Hours: My Active Orders 12/28/17 08:59 CULTURE URINE [RM] Stat - Assessment/Plan Last 24 Hours: My Active Orders 12/28/17 08:59 CULTURE URINE [RM] Stat
[2017-12-28] MEDS ORDERED: Nitrofurantoin Monohydrate/Macrocrystalline 100 MG Cap PO ONE (09:00)
[2017-12-28] MEDS ORDERED: Phenazopyridine 95 MG Tab PO ONE (09:01)
[2017-12-28 09:27] VITALS: BP 137/70
== END 2017-12-28 09:24 | disposition home or self-care (01) ==
LOC: FB.ED 08:22
DX: N39.0 Urinary tract infection, site not specified (principal); I10 Essential (primary) hypertension; E11.9 Type 2 diabetes mellitus without complications; Z79.899 Other long term (current) drug therapy; Z88.6 Allergy status to analgesic agent; Z91.030 Bee allergy status; Z88.5 Allergy status to narcotic agent; Z88.1 Allergy status to other antibiotic agents; Z91.012 Allergy to eggs; Z91.013 Allergy to seafood; Z88.2 Allergy status to sulfonamides; Z88.7 Allergy status to serum and vaccine; Z88.0 Allergy status to penicillin
CPT/HCPCS: 81001; 87086; 87088; 87186; 99283; A9270-GY

== ENCOUNTER 2018-10-14 13:10 | Emergency (ER) | payer MEDICARE, BC ==
[2018-10-14] MEDS ORDERED: Sodium Chloride 0.9% 10 ML Syringe FLUSH PRN (14:19)
[2018-10-14] MEDS ORDERED: traMADol 50 MG Tab PO ONE (14:31)
--- NOTE | 2018-10-14 15:21 | CR ---
INDICATION: Fall, ankle hurts, twisted under her somehow. RIGHT ANKLE: Three views of the right ankle were obtained and revealed the ankle mortise to appear fairly intact without a definite acute fracture or dislocation. What appears to be an ununited accessory ossification center or possibly a previous ununited chip fracture fragment is noted inferior to the lateral malleolus. There are some degenerative changes at the ankle mortise compatible with osteoarthritis. Osteoarthritic changes are also noted at the talonavicular joint and other intertarsal joints. A large plantar calcaneal spur is seen. Calcifications are noted in the Achilles tendon near its insertion, compatible with calcific tendinitis, but should be correlated clinically. IMPRESSION: 1. No acute fracture or dislocation. 2. Osteoarthritis. 3. Possible Achilles calcific tendinitis. Report was called to Dr. Mcdermott at 1439 hours on 10/14/18. [facility]ITALCaroline
--- NOTE | 2018-10-14 15:26 | CT ---
INDICATION: Fall, hit head, two days ago. CT HEAD WITHOUT CONTRAST: Spiral examination of the brain was obtained axially with 3.75 mm images with sagittal and coronal reconstructions, 10/14/18, and compared with 08/03/18. Total exam DLP = 1,193.45 mGy-cm. No shift of midline structures was identified. No abnormal areas of density were identified. Calcifications are noted in the internal carotid arteries. Ventricles and cortical sulci are slightly prominent, compatible with a mild degree of general atrophy. No bleeding site or hematoma was seen. No evidence of an acute thrombotic CVA was suggested. The visualized paranasal sinuses and mastoid air cells were well-aerated. The cranium appears to be intact. IMPRESSION: 1. No acute intracranial abnormality. 2. Cerebrovascular disease is suggested. 3. Mild generalized atrophy. Report was called to Dr. Mcdermott at 1439 hours on 10/14/18. [facility]
--- NOTE | 2018-10-14 15:32 | CT ---
INDICATION: Fall, hit head, two days ago. CT CERVICAL SPINE: Spiral 2.5 mm axial sections were obtained through the cervical spine with sagittal and coronal reconstructions, 10/14/18, and compared with 03/20/18. Total exam DLP = 458.31 mGy-cm. Moderate degenerative changes are noted at the atlantoodontoid joint with hypertrophic spurring and some narrowing of the joint. Degenerative changes are noted at the uncinate joints to a relatively mild degree in general but with more severe changes at C5-6. There is some relative straightening of the normal cervical lordosis. Narrowing of the disk space at C5-6 is noted with hypertrophic changes seen most severely off of vertebral bodies anteriorly and posteriorly at C5-6 with some narrowing of the neural foramina at that level. There are some mild to moderate hypertrophic degenerative changes at C4-5 and C6-7. Vertebral body heights were maintained. Bone density appeared to be grossly normal. Prevertebral space appeared to be normal. IMPRESSION: 1. No acute fracture or dislocation. 2. Osteoarthritis and degenerative disk disease cervical spine, as mentioned above. Report was called to Dr. Mcdermott at 1439 hours on 10/14/18. [facility]
--- NOTE | 2018-10-14 15:42 | EDM.PDOC ---
ED HPI GENERAL MEDICAL PROBLEM - General Chief Complaint: Lower Extremity Injury/Pain Stated Complaint: RT ANKLE PAIN Time Seen by Provider: 10/14/18 13:15 Source of Information: Reports: Patient, Family History Limitations: Reports: No Limitations - History of Present Illness INITIAL COMMENTS - FREE TEXT/NARRATIVE: There is a very pleasant 78-year-old female who comes in today with concern for worsening right ankle pain which occurred after she somehow fell while getting into the car on Friday afternoon. She has tried getting through it at home but has not had any improvement in her symptoms and today it hurt so bad she is not able to walk. She has had great difficulty with mobility secondary to this in general, but she and her have been able to manage with her 4 wheeled walker at home. She has been using ice, and taking her tramadol as scheduled. She does mention that she had her head during the fall, and has had a little bit of neck pain. She denies any shortness of breath, chest pain, abdominal pain, and does not have a headache. She denies any changes in vision, or ringing in her ears. She has extensive bruising over her left forearm as well as some on the right, and has bruises on both of her lower extremities as well. Her has been taking care of her minor skin tears with Neosporin and Band-Aid. She denies any numbness or tingling in her hands or feet. She denies any nausea or vomiting. She has an extensive past medical history, however she states that she is not on any blood thinners. - Related Data Allergies Allergy/AdvReac Type Severity Reaction Status Date / Time bupropion [From Wellbutrin] Allergy Cannot Verified 04/04/18 17:16 Remember ciprofloxacin Allergy Cannot Verified 04/04/18 17:16 Remember codeine Allergy Hives Verified 04/04/18 17:16 cyclobenzaprine Allergy Cannot Verified 04/04/18 17:16 [Cyclobenzaprine] Remember diclofenac sodium Allergy Cannot Verified 04/04/18 17:16 [From Arthrotec 50] Remember feathers Allergy Cannot Verified 04/04/18 17:16 Remember flu vaccine ts (65 Allergy Cannot Verified 04/04/18 17:16 yr+) Remember [From Fluzone High-Dose (PF)] gabapentin [From Neurontin] Allergy Cannot Verified 04/04/18 17:16 Remember ibuprofen [From Motrin] Allergy Cannot Verified 04/04/18 17:16 Remember iodine Allergy Airway Verified 04/04/18 17:16 Tightness meperidine HCl [From Demerol] Allergy Cannot Verified 04/04/18 17:16 Remember misoprostol Allergy Cannot Verified 04/04/18 17:16 [From Arthrotec 50] Remember Penicillins Allergy Cannot Verified 04/04/18 17:16 Remember propoxyphene Allergy Cannot Verified 04/04/18 17:16 [From Darvocet-N] Remember pseudoephedrine HCl Allergy Cannot Verified 04/04/18 17:16 [From Advil Cold & Sinus] Remember shellfish derived Allergy Anaphylactic Verified 04/04/18 17:16 Shock Sulfa (Sulfonamide Allergy Hives Verified 04/04/18 17:16 Antibiotics) tetanus toxoid, adsorbed Allergy Cannot Verified 04/04/18 17:16 Remember venom-honey bee Allergy Anaphylactic Verified 04/04/18 17:16 Shock aspirin AdvReac STOMACH Verified 04/04/18 17:16 BLEEDING WITH TOO MUCH bupropion HCl AdvReac Cannot Verified 04/04/18 17:16 [From Wellbutrin] Remember celecoxib [From Celebrex] AdvReac Nausea and Verified 04/04/18 17:16 Vomiting clarithromycin AdvReac Diarrhea Verified 04/04/18 17:16 morphine AdvReac Hallucinati Verified 04/04/18 17:16 ons iodine-isopropyl Allergy Severe THROAT Uncoded 12/28/17 08:45 SWELLS SHUT EGGS Allergy Intermediate Difficulty Uncoded 12/28/17 08:45 Breathing Home Meds: Home Meds ClonazePAM [KlonoPIN] 2 mg PO TID PRN 11/13/13 [History] Mirtazapine [Remeron] 30 mg PO BEDTIME 11/13/13 [History] Pantoprazole [ProTONIX] 40 mg PO DAILY 05/01/14 [History] Calcium Carb/Vitamin D3/Vit K1 [Viactiv Soft Chew] 1 tab PO DAILY 01/22/16 [ History] Carboxymethylcellulos/Glycerin [Refresh Optive] 3 drop EYEBOTH DAILY 01/22/16 [ History] Glucosam/MSM/Chond/Hyaluron Ac [Sv Glucosamine-Chondroitin Tab] 2 tab PO DAILY 01/22/16 [History] Ketotifen [Ketotifen 0.025% Ophth Soln] 1 drop EYEBOTH DAILY 01/22/16 [History] Loratadine 10 mg PO DAILY 01/22/16 [History] Lutein/Min/Vit C/Vit E Acetate [Ocuvite Lutein] 1 cap PO DAILY 01/22/16 [History ] Melatonin 30 mg PO BEDTIME 01/22/16 [History] Multivital 1 tab PO DAILY 01/22/16 [History] Potassium Bicarbonate/Cit Ac [Effer-K] 25 meq PO DAILY 01/22/16 [History] Rosuvastatin [Crestor] 10 mg PO BEDTIME 01/22/16 [History] Sucralfate 1 gm PO DAILY 01/22/16 [History] Topiramate [Topamax] 100 mg PO BEDTIME 01/22/16 [History] cycloSPORINE [Restasis] 1 drop EYEBOTH DAILY 01/22/16 [History] lamoTRIgine [LaMICtal] 150 mg PO DAILY@1200 01/22/16 [History] Docusate Sodium/Sennosides [Senokot-S] 1 tab PO DAILY 02/26/16 [History] Zolpidem Tartrate [Ambien] 30 mg PO BEDTIME 02/26/16 [History] Ondansetron 4 mg PO Q4H PRN 05/11/17 [History] tiZANidine [Zanaflex] 2 mg PO Q6HR PRN 03/20/18 [History] Meclizine [Antivert] 12.5 mg PO TID tablet 03/22/18 [Rx] Saccharomyces Boulardii [Florastor] 250 mg PO BID cap 03/22/18 [Rx] traMADol [Ultram] 50 mg PO Q6H PRN #30 tablet 03/22/18 [Rx] Docusate Sodium 250 mg PO BID 04/06/18 [History] Gabapentin [Neurontin] 200 mg PO BEDTIME 04/06/18 [History] Prochlorperazine [Compazine] 5 mg PO Q8H PRN 04/06/18 [History] Past Medical History HEENT History: Reports: Cataract, Impaired Vision, Other (See Below) Other HEENT History: vertigo Cardiovascular History: Reports: Afib, High Cholesterol, Hypertension Respiratory History: Reports: SOB Gastrointestinal History: Reports: Chronic Constipation, Other (See Below) Other Gastrointestinal History: cyclic retching Genitourinary History: Reports: UTI, Recurrent [employer] History: Reports: Musculoskeletal History: Reports: Other (See Below) Other Musculoskeletal History: rt shoulder pain Neurological History: Reports: CVA, TIA, Other (See Below) Other Neuro History: "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 Psychiatric History: Reports: Anxiety, Depression Other Psychiatric History: insomnia Endocrine/Metabolic History: Reports: Diabetes, Type II Hematologic History: Reports: None Immunologic History: Reports: None Oncologic (Cancer) History: Reports: Squamous Cell Carcinoma Dermatologic History: Reports: Other (See Below) Other Dermatologic History: left ear and arm skin leison - Infectious Disease History Infectious Disease History: Reports: Chicken Pox, Shingles - Past Surgical History HEENT Surgical History: Reports: Cataract Surgery, Other (See Below) Other HEENT Surgeries/Procedures: cleft lip surgury GI Surgical History: Reports: Appendectomy, Johnathan Fundoplication Musculoskeletal Surgical History: Reports: Knee Replacement Social & Family History - Family History Family Medical History: Noncontributory - Tobacco Use Smoking Status *Q: Former Smoker Used Tobacco, but Quit: Yes Month/Year Tobacco Last Used: 04/1964 Second Hand Smoke Exposure: No - Caffeine Use Caffeine Use: Reports: None - Recreational Drug Use Recreational Drug Use: No - Living Situation & Occupation Living situation: Reports: 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 ED EXAM, GENERAL - Physical Exam Exam: See Below Free Text/Narrative:: Gen.: Alert, very pleasant and in pain but otherwise not acutely distressed. Head is atraumatic without any obvious lesions or bumps. She does have some midline spinous tenderness of her neck at approximately the level of C5-C6, and a c-collar was applied. Telephone are equal and reactive, extraocular motion is intact and her facial muscles are symmetric. Throat without erythema, mucous members are moist. Lungs are clear throughout with no wheezes or crackles and heart is regular rate and rhythm at this time. Peripheral pulses +2 in both the upper and lower extremities, abdomen positive bowel sounds, soft nondistended nontender. Skin shows extensive bruising over both of her arms and forearms, she also has extensive bruising in the right lower extremity and some in the left lower extremity. There is no significant pitting edema. She has an old puncture wound on the left leg which appears to be healing and is covered with a nonstick Nikhil. Sensation and distal circulation is intact to the right foot. Ankle exam shows she is acutely tender over the ATFL, also around the medial malleolus. She has some soft tissue swelling on both medial and lateral side of the ankle. I do not appreciate any anterior or posterior laxity, however it is difficult exam given her pain level. She does seem to be somewhat hyperalgesia around her skin being touched. High ankle squeeze is negative for any pain in the ankle. Course - Vital Signs Text/Narrative:: C-collar applied upon patient's arrival due to complaint of back pain and midline spinous tenderness. A head CT and neck are obtained, also x-rayed the right ankle. She took her usual tramadol at home, and an ice pack was immediately provided upon her arrival. She does not appear to have any other injuries in her wounds appear to be well cared for. Last Recorded V/S: Last Vital Signs Temp 36.7 C 10/14/18 13:10 Pulse 68 10/14/18 15:48 Resp 18 10/14/18 15:48 BP 154/79 H 10/14/18 15:48 Pulse Ox 96 10/14/18 15:48 - Orders/Labs/Meds Labs: Laboratory Tests 10/14/18 10/14/18 10/14/18 Range/Units 13:35 13:35 13:35 WBC 8.3 (4.5-12.0) X10-3/uL RBC 3.82 (3.23-5.20) x10(6)uL Hgb 12.6 (11.5-15.5) g/dL Hct 38.2 (30.0-51.3) % MCV 100.0 H (80-96) fL MCH 32.9 (27.7-33.6) pg MCHC 32.9 (32.2-35.4) g/dL RDW 13.5 (11.5-15.5) % Plt Count 219 (125-369) X10(3)uL PT 9.8 (8.7-11.1) INR 1.01 (0.89-1.13) Sodium 143 (135-145) mmol/L Potassium 3.9 (3.5-5.3) mmol/L Chloride 108 (100-110) mmol/L Carbon Dioxide 26 (21-32) mmol/L BUN 17 (7-18) mg/dL Creatinine 1.1 H (0.55-1.02) mg/dL Est Cr Clr Drug Dosing TNP Estimated GFR (MDRD) 48 L (>60) BUN/Creatinine Ratio 15.5 (9-20) Glucose 187 H (80-116) mg/dL Calcium 9.4 (8.6-10.2) mg/dL Meds: Medications Discontinued Medications Generic Name Dose Route Start Last Admin Trade Name Freq PRN Reason Stop Dose Admin Heparin Sodium (Porcine) 500 units 10/14/18 15:26 10/14/18 15:46 Heparin Lock Flush 100 Units/Ml FLUSH 500 units ASDIRECTED PRN Administration Keep Vein Open Sodium Chloride 10 ml 10/14/18 14:19 10/14/18 13:45 Saline Flush FLUSH 10 ml ASDIRECTED PRN Administration Other Tramadol HCl 50 mg 10/14/18 14:31 10/14/18 14:42 Ultram PO 10/14/18 14:32 50 mg ONETIME ONE Administration - Re-Assessments/Exams Free Text/Narrative Re-Assessment/Exam: 10/14/18 CT discussed with radiologist, he says there is no evidence of any acute injury or bleed of the head or neck. Also reviewed the right ankle x-ray and she has some osteoarthritis but no acute fracture is seen. Orders given to remove c-collar. Patient is due to take her home tramadol at 1 PM, so a dose was given here once that became known to us. She is somewhat improved with ice, although her ankle hurt worse after coming back from x-ray due to the manipulation Free Text/Narrative Re-Assessment/Exam: 10/14/18 attempted to apply ankle brace, this did not result in any improvement of her symptoms so we opted to use a boot. She was able to ambulate with this prior to leaving the department. Discussed rice protocol, follow-up with PCP early next week especially if no improvement. Discussed in detail signs or symptoms of infection with her and her and the need to present immediately if any of these appear. They're in agreement with this plan and all questions were answered Departure - Departure Time of Disposition: 15:39 Disposition: Home, Self-Care 01 Condition: Good Clinical Impression: Right ankle sprain - Discharge Information *PRESCRIPTION DRUG MONITORING PROGRAM REVIEWED*: Not Applicable *COPY OF PRESCRIPTION DRUG MONITORING REPORT IN PATIENT ANNY: Not Applicable Instructions: Ankle Sprain, Walking Boot, Adult Referrals: Sissy Parks, [employer] [Primary Care Provider] - Forms: ED Department Discharge
[2018-10-14 16:11] VITALS: BP 154/79; PULSE 68
== END 2018-10-14 16:00 | disposition home or self-care (01) ==
LOC: FB.ED 13:10
DX: S93.401A Sprain of unspecified ligament of right ankle, initial encounter (principal); E78.00 Pure hypercholesterolemia, unspecified; I10 Essential (primary) hypertension; E11.9 Type 2 diabetes mellitus without complications; F41.9 Anxiety disorder, unspecified; F32.9 Major depressive disorder, single episode, unspecified; Z87.891 Personal history of nicotine dependence; I48.91 Unspecified atrial fibrillation; Z79.899 Other long term (current) drug therapy; W18.31XA Fall on same level due to stepping on an object, initial encounter; Z79.84 Long term (current) use of oral hypoglycemic drugs
CPT/HCPCS: 36415; 70450; 72125; 73610; 80048; 85027; 85610; 96374; 99283; A9270; J1642

== ENCOUNTER 2018-12-18 15:31 | Inpatient (IN) | payer MEDICARE, BC ==
[2018-12-18] MEDS ORDERED: Sodium Chloride 0.9% 10 ML Syringe FLUSH PRN (17:51)
[2018-12-18] MEDS ORDERED: Metoclopramide 5 MG Tab PO PRN (17:59)
[2018-12-18] MEDS ORDERED: Non-Formulary Medication 1 Each (Epinephrine [Epipen] 0.3 MG) IM PRN (17:59)
[2018-12-18] MEDS ORDERED: Enoxaparin 30 MG/0.3 ML Syringe SUBCUT SCH (18:00)
--- NOTE | 2018-12-18 18:20 | PCM.HP.2 ---
H&P History of Present Illness - General Date of Service: 12/18/18 Admit Problem/Dx: Admission Diagnosis/Problem Admission Diagnosis/Problem Failure to thrive in adult Source of Information: Patient, Family, Old Records, Provider History Limitations: Reports: Physical Impairment (hx of CVA x 3, has some expressive aphasia) - History of Present Illness Initial Comments - Free Text/Narative: Majority of history obtained from and records from her PCP Sonu oHffmann PA-C: patient has been declining over the past month, she had stressful time down in [place] as her son was dying from cirrhosis and they only had a few days with him before he was comatose. When her and daughter were out she tried getting up off the couch recliner and fell hitting her shins on the coffee table, she tried stopping the bleeding with paper towels and sat down on the couch until her and daughter came home. They cleaned her up and isabella wrapped her legs. When they were at the hospital next day her grandson noticed that she was bleeding through the bandages and took her to the ER. [place]BC was [id number] and she spent 12 hours in ER before reaching the floor. No fractures per but multiple skin tears and abrasions. Her WBC resolved the next morning. She has been seen Friday, Friday and again today at [facility], Friday and today by Sonu Hoffmann PA-C and Friday by Dr Mckeon for her leg wounds and to remove non-healing scab on her right ear. She has not been eating very much and drinking only enough to stay hydrated. Her weight is up 15 pounds in the last 2 weeks. No history of Heart failure. thinks at one time she was told that she had varicose veins. 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 Dr Mckeon advised twice a day dressing changes with silvadene and Telfa secured with CoBand. He cleaned up the wounds on her leg, his note states 5 x 3 cm in size and dressed that day. Her has been doing her dressing changes and they were last changed prior to coming to the hospital. On Friday she was set up with Home Health because of falls and declining function but Home Health when they assessed stated she was her required cares were beyond what they could do and recommended NH placement. Records from [place] were reviewed and are in her chart at nurses station. - Related Data Allergies/Adverse Reactions: Allergies Allergy/AdvReac Type Severity Reaction Status Date / Time bupropion [From Wellbutrin] Allergy Cannot Verified 04/04/18 17:16 Remember ciprofloxacin Allergy Cannot Verified 04/04/18 17:16 Remember codeine Allergy Hives Verified 04/04/18 17:16 cyclobenzaprine Allergy Cannot Verified 04/04/18 17:16 [Cyclobenzaprine] Remember diclofenac sodium Allergy Cannot Verified 04/04/18 17:16 [From Arthrotec 50] Remember feathers Allergy Cannot Verified 04/04/18 17:16 Remember flu vaccine ts (66 Allergy Cannot Verified 04/04/18 17:16 yr+) Remember [From Fluzone High-Dose (PF)] ibuprofen [From Motrin] Allergy Cannot Verified 04/04/18 17:16 Remember iodine Allergy Airway Verified 04/04/18 17:16 Tightness meperidine HCl [From Demerol] Allergy Cannot Verified 04/04/18 17:16 Remember misoprostol Allergy Cannot Verified 04/04/18 17:16 [From Arthrotec 50] Remember Penicillins Allergy Cannot Verified 04/04/18 17:16 Remember propoxyphene Allergy Cannot Verified 04/04/18 17:16 [From Darvocet-N] Remember pseudoephedrine HCl Allergy Cannot Verified 04/04/18 17:16 [From Advil Cold & Sinus] Remember shellfish derived Allergy Anaphylactic Verified 04/04/18 17:16 Shock Sulfa (Sulfonamide Allergy Hives Verified 04/04/18 17:16 Antibiotics) tetanus toxoid, adsorbed Allergy Cannot Verified 04/04/18 17:16 Remember venom-honey bee Allergy Anaphylactic Verified 04/04/18 17:16 Shock aspirin AdvReac STOMACH Verified 04/04/18 17:16 BLEEDING WITH TOO MUCH bupropion HCl AdvReac Cannot Verified 04/04/18 17:16 [From Wellbutrin] Remember celecoxib [From Celebrex] AdvReac Nausea and Verified 04/04/18 17:16 Vomiting clarithromycin AdvReac Diarrhea Verified 04/04/18 17:16 morphine AdvReac Hallucinati Verified 04/04/18 17:16 ons iodine-isopropyl Allergy Severe THROAT Uncoded 12/28/17 08:45 SWELLS SHUT EGGS Allergy Intermediate Difficulty Uncoded 12/28/17 08:45 Breathing Home Medications: Home Meds ClonazePAM [KlonoPIN] 1 mg PO BID 11/13/13 [History] Mirtazapine [Remeron] 30 mg PO BEDTIME 11/13/13 [History] Pantoprazole [ProTONIX] 80 mg PO DAILY 05/01/14 [History] Calcium Carb/Vitamin D3/Vit K1 [Viactiv Soft Chew] 1 tab PO DAILY 01/22/16 [ History] Carboxymethylcellulos/Glycerin [Refresh Optive] 3 drop EYEBOTH DAILY 01/22/16 [ History] Ketotifen [Ketotifen 0.025% Ophth Soln] 1 drop EYEBOTH TID 01/22/16 [History] Potassium Bicarbonate/Cit Ac [Effer-K] 25 meq PO DAILY 01/22/16 [History] cycloSPORINE [Restasis] 1 drop EYEBOTH BID 01/22/16 [History] Zolpidem Tartrate [Ambien] 30 mg PO BEDTIME 02/26/16 [History] Ondansetron 4 mg PO Q8H PRN 05/11/17 [History] tiZANidine [Zanaflex] 2 mg PO BID 03/20/18 [History] Acetaminophen [Tylenol Extra Strength] 500 mg PO Q6H PRN 12/18/18 [History] Acetaminophen/HYDROcodone [Peterson 325-5 MG] 1 tab PO Q6H PRN 12/18/18 [History] Cetirizine [ZyrTEC] 10 mg PO DAILY 12/18/18 [History] Docusate Sodium 100 mg PO DAILY 12/18/18 [History] EPINEPHrine [Epipen] 0.3 mg IM ONETIME PRN 12/18/18 [History] Eye Promise Ez Tears 2 cap PO DAILY 12/18/18 [History] Fluticasone Propionate [Flonase] 2 spray NASBOTH DAILY 12/18/18 [History] Gabapentin [Neurontin] 300 mg PO TID 12/18/18 [History] Lactobac No.30/Bifidobact No.4 [Ultimate Galina Probiotic Dr Cp] 1 cap PO DAILY 12/18/18 [History] Lisinopril 5 mg PO DAILY 12/18/18 [History] Melatonin 30 mg PO BEDTIME 12/18/18 [History] Metoclopramide HCl [Reglan] 5 mg PO Q8H PRN 12/18/18 [History] Rosuvastatin [Crestor] 10 mg PO BEDTIME 12/18/18 [History] Silver Sulfadiazine 1 applic TOP BID 12/18/18 [History] Tolterodine Tartrate [Detrol LA] 2 mg PO DAILY 12/18/18 [History] Topiramate [Topamax] 100 mg PO BEDTIME 12/18/18 [History] lamoTRIgine [LaMICtal] 150 mg PO BEDTIME 12/18/18 [History] traMADol [Ultram] 50 mg PO Q6H PRN 12/18/18 [History] Past Medical History HEENT History: Reports: Cataract, Impaired Vision, Other (See Below) Other HEENT History: vertigo Cardiovascular History: Reports: Afib, High Cholesterol, Hypertension Respiratory History: Reports: SOB Gastrointestinal History: Reports: Chronic Constipation, Other (See Below) Other Gastrointestinal History: cyclic retching Genitourinary History: Reports: UTI, Recurrent LAST PUTTER AWAY History: Reports: Musculoskeletal History: Reports: Other (See Below) Other Musculoskeletal History: rt shoulder pain Neurological History: Reports: CVA, TIA, Other (See Below) Other Neuro History: CVA x 3, Guillian Washington Syndrome Psychiatric History: Reports: Anxiety, Depression Other Psychiatric History: insomnia Endocrine/Metabolic History: Reports: Diabetes, Type II Hematologic History: Reports: None Immunologic History: Reports: None Oncologic (Cancer) History: Reports: Squamous Cell Carcinoma Dermatologic History: Reports: Other (See Below) Other Dermatologic History: left ear and arm skin leison - Infectious Disease History Infectious Disease History: Reports: Chicken Pox, Shingles - Past Surgical History HEENT Surgical History: Reports: Cataract Surgery, Other (See Below) Other HEENT Surgeries/Procedures: cleft lip surgury GI Surgical History: Reports: Appendectomy, Johnathan Fundoplication Musculoskeletal Surgical History: Reports: Knee Replacement Social & Family History - Family History Family Medical History: Noncontributory - Caffeine Use Caffeine Use: Reports: None - Living Situation & Occupation Living situation: Reports: 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 Denies: Fever, Chills HEENT: Denies: Ear Pain, Eye Pain, Rhinitis, Post Nasal Drip, Sinus Congestion, Sore Throat Pulmonary: Denies: Shortness of Breath, Wheezing, Cough, Sputum Cardiovascular: Reports: Edema. Denies: Chest Pain, Palpitations Gastrointestinal: Reports: No Symptoms Genitourinary: Reports: No Symptoms Musculoskeletal: Reports: Joint Pain Skin: Reports: Bruising (arms, legs, thighs), Wound (upper right arm, right forearm, bilateral shins, surgical excision right ear, scab left ear) Psychiatric: Reports: Anxiety Neurological: Reports: Pre-Existing Deficit, Trouble Speaking, Difficulty Walking, Gait Disturbance. Denies: Dizziness Hematologic/Lymphatic: Reports: Easy Bruising. Denies: Anemia, Easy Bleeding Exam - Exam Exam: See Below - Vital Signs Vital Signs: Last Vital Signs Temp 35.9 C 12/18/18 16:52 Pulse 69 12/18/18 16:52 Resp 16 12/18/18 16:52 BP 135/68 12/18/18 16:52 Pulse Ox 100 12/18/18 16:52 Weight: 82.724 kg - Exam General: Alert, Oriented, Cooperative HEENT: PERRLA, Conjunctiva Clear, EOMI, Normal Nasal Septum, Posterior Pharynx Clear, TMs Clear, Other (Dry mucus membranes) Neck: Supple, Trachea Midline Lungs: Clear to Auscultation, Normal Respiratory Effort Cardiovascular: Regular Rate, Regular Rhythm. No: Systolic Murmur, Diastolic Murmur GI/Abdominal Exam: Normal Bowel Sounds, Soft, Non-Tender, No Distention Extremities: Pedal Edema (2+ pitting to knees) Peripheral Pulses: 2+: Radial (L), Radial (R) Skin: Warm, Dry, Wound (dressings on right upper arm, right forearm, bilateral shins, bandaid on right ear) Neuro Extensive - Mental Status: Alert, Oriented x3, Slow Response to Commands Neuro Extensive - Motor, Sensory, Reflexes: Motor/Sensory Deficits, Expressive Aphasia Psychiatric: Anxious - Problem List (1) Failure to thrive SNOMED Code(s): 41722262 ICD Code: [id number] - Status: Acute Current Visit: Yes (2) Malnutrition SNOMED Code(s): 86172850 ICD Code: E46 - UNSPECIFIED PROTEIN-CALORIE MALNUTRITION Status: Acute Current Visit: Yes (3) Peripheral edema SNOMED Code(s): 396556920 ICD Code: R60.9 - EDEMA, UNSPECIFIED Status: Acute Current Visit: Yes (4) Contusion of leg, right SNOMED Code(s): 56172595 ICD Code: S80.11XA - CONTUSION OF RIGHT LOWER LEG, INITIAL ENCOUNTER Status : Acute Current Visit: No (5) Contusion of lower leg, left SNOMED Code(s): 91187402690824141 ICD Code: S80.12XA - CONTUSION OF LEFT LOWER LEG, INITIAL ENCOUNTER Status : Acute Current Visit: No (6) Ecchymosis SNOMED Code(s): 774881000 ICD Code: R58 - HEMORRHAGE, NOT ELSEWHERE CLASSIFIED Status: Acute Current Visit: No (7) Fall SNOMED Code(s): 0207802, 094220783 ICD Code: W19.XXXA - UNSPECIFIED FALL, INITIAL ENCOUNTER Status: Acute Current Visit: No Qualifiers: Encounter type: initial encounter Qualified Code(s): W19.XXXA - Unspecified fall, initial encounter (8) Polypharmacy SNOMED Code(s): 925827469 ICD Code: Z79.899 - OTHER SENIOR CARE (CURRENT) DRUG THERAPY Status: Acute Current Visit: No (9) Weakness generalized SNOMED Code(s): 65086028 ICD Code: R53.1 - WEAKNESS Status: Acute Current Visit: No (10) Diabetes mellitus type 2 SNOMED Code(s): 42414532 ICD Code: E11.9 - TYPE 2 DIABETES MELLITUS WITHOUT COMPLICATIONS Status: Chronic Current Visit: No Problem Details: continue out pt management. dietary and clinic visits discussed. (11) Dysthymia SNOMED Code(s): 16692226 ICD Code: F34.1 - DYSTHYMIC DISORDER Status: Chronic Current Visit: No Problem Details: no events during stay. continue outpat management. (12) HTN, Benign essential hypertension SNOMED Code(s): 7230938 ICD Code: I10 - ESSENTIAL (PRIMARY) HYPERTENSION Status: Chronic Current Visit: No Problem List Initiated/Reviewed/Updated: Yes Orders Last 24hrs: Active Orders 24 hr Category Date Time Status Patient Status [ADT] Routine ADT 12/18/18 17:51 Active Blood Glucose Check, Bedside [RC] TIDMEALS Care 12/18/18 17:51 Active Height and Weight [RC] DAILY Care 12/18/18 17:51 Active Oxygen Therapy [RC] PRN Care 12/18/18 17:51 Active Up With Assistance [RC] QID Care 12/18/18 17:51 Active VTE/DVT Education [RC] Per Unit Routine Care 12/18/18 17:51 Active Vital Signs [RC] Q4H Care 12/18/18 17:51 Active Consult to Case Management/Oil Rig Driller [CONS] Cons 12/18/18 17:51 Active Routine Consult to Revenue Liaison [CONS] Routine Cons 12/18/18 17:51 Active OT Evaluation and Treatment [CONS] Routine Cons 12/18/18 17:51 Active PT Evaluation and Treatment [CONS] Routine Cons 12/18/18 17:51 Active Regular Diet [DIET] Diet 12/18/18 Dinner Active CBC W/O DIFF,HEMOGRAM [HEME] AM Lab 12/19/18 05:11 Ordered COMPREHENSIVE METABOLIC PN,CMP [CHEM] AM Lab 12/19/18 05:11 Ordered MAGNESIUM [CHEM] AM Lab 12/19/18 05:11 Ordered UA W/MICROSCOPIC [URIN] Routine Lab 12/18/18 17:51 Ordered Acetaminophen [Tylenol Extra Strength] Med 12/18/18 17:59 Ordered 500 mg PO Q6H PRN Acetaminophen/HYDROcodone [Peterson 325-5 MG] Med 12/18/18 17:59 Ordered 1 tab PO Q6H PRN Calcium Carb/Vitamin D3/Vit K1 [Viactiv Soft Chew] Med 12/19/18 09:00 Ordered 1 tab PO DAILY Carboxymethylcellulos/Glycerin [Refresh Optive] Med 12/19/18 09:00 Ordered DOSE ml EYEBOTH DAILY Cetirizine [ZyrTEC] Med 12/19/18 09:00 Ordered 10 mg PO DAILY ClonazePAM [KlonoPIN] Med 12/18/18 21:00 Ordered 1 mg PO BID Docusate Sodium [Colace] Med 12/19/18 09:00 Ordered 100 mg PO DAILY EPINEPHrine [Epipen] Med 12/18/18 17:59 Ordered 0.3 mg IM ONETIME PRN Enoxaparin [Lovenox] Med 12/18/18 18:00 Stop Req 30 mg SUBCUT Q24H Enoxaparin [Lovenox] Med 12/18/18 18:09 Pending 40 mg SUBCUT Q24H Fluticasone Propionate [Flonase] Med 12/19/18 09:00 Ordered DOSE gm NASBOTH DAILY Gabapentin [Neurontin] Med 12/18/18 21:00 Ordered 300 mg PO TID Ketotifen [Ketotifen 0.025% Ophth Soln] Med 12/18/18 21:00 Ordered DOSE ml EYEBOTH TID Lactobac No.30/Bifidobact No.4 [Ultimate Galina Med 12/19/18 09:[address] Cp] 1 cap PO DAILY Lisinopril [Prinivil] Med 12/19/18 09:00 Ordered 5 mg PO DAILY Melatonin [Melatonin] Med 12/18/18 21:00 Ordered 30 mg PO BEDTIME Metoclopramide [Reglan] Med 12/18/18 17:59 Ordered 5 mg PO Q8H PRN Mirtazapine [Remeron] Med 12/18/18 21:00 Ordered 30 mg PO BEDTIME Ondansetron [Ondansetron] Med 12/18/18 17:59 Ordered 4 mg PO Q8H PRN Pantoprazole [ProTONIX] Med 12/19/18 09:00 Ordered 80 mg PO DAILY Potassium Bicarbonate/Cit Ac [Effer-K] Med 12/19/18 09:00 Ordered 25 meq PO DAILY Rosuvastatin [Crestor] Med 12/18/18 21:00 Ordered 10 mg PO BEDTIME Silver Sulfadiazine [Silvadene 1% Cream 400 GM] Med 12/18/18 21:00 Ordered DOSE gm TOP BID Sodium Chloride 0.9% [Saline Flush] Med 12/18/18 17:51 Active 10 ml FLUSH ASDIRECTED PRN Tolterodine [Detrol LA 24 Hr] Med 12/19/18 09:00 Ordered 2 mg PO DAILY Topiramate [Topamax] Med 12/18/18 21:00 Ordered 100 mg PO BEDTIME Zolpidem [Ambien] Med 12/18/18 21:00 Ordered 30 mg PO BEDTIME cycloSPORINE [Restasis] Med 12/18/18 21:00 Ordered DOSE each EYEBOTH BID lamoTRIgine [LaMICtal] Med 12/18/18 21:00 Ordered 150 mg PO BEDTIME tiZANidine [Zanaflex] Med 12/18/18 21:00 Ordered 2 mg PO BID traMADol [Ultram] Med 12/18/18 17:59 Ordered 50 mg PO Q6H PRN Antiembolic Hose [OM.PC] Per Unit Routine Oth 12/18/18 17:53 Ordered Saline Lock Insert [OM.PC] Routine Oth 12/18/18 17:51 Ordered Resuscitation Status Routine Resus Stat 12/18/18 17:51 Ordered Medication Orders Acetaminophen (Tylenol Extra Strength) 500 mg PO Q6H PRN PRN Reason: Pain Hydrocodone Bitart/Acetaminophen (Peterson 325-5 Mg) 1 tab PO Q6H PRN PRN Reason: Pain Carboxymethylcellulose (Refresh Optive) ml EYEBOTH DAILY [facility] Cetirizine HCl (Zyrtec) 10 mg PO DAILY JUANA Clonazepam (Klonopin) 1 mg PO BID JUANA Cyclosporine (Restasis) each EYEBOTH BID JUANA Docusate Sodium (Colace) 100 mg PO DAILY JUANA Enoxaparin Sodium (Lovenox) 30 mg SUBCUT Q24H JUANA Fluticasone Propionate (Flonase) gm NASBOTH DAILY JUANA Gabapentin (Neurontin) 300 mg PO TID JUANA Ketotifen Fumarate (Ketotifen 0.025% Ophth Soln) ml EYEBOTH TID JUANA Lisinopril (Prinivil) 5 mg PO DAILY JUANA Metoclopramide HCl (Reglan) 5 mg PO Q8H PRN PRN Reason: Nausea Non-Formulary Medication (Calcium Carb/Vitamin D3/Vit K1 [Viactiv Soft Chew]) 1 tab PO DAILY JUANA Non-Formulary Medication (Epinephrine [Epipen]) 0.3 mg IM ONETIME PRN PRN Reason: ALLERGIC REACTION Non-Formulary Medication (Lactobac No.30/Bifidobact No.4 [Ultimate Gal[place] Probiotic Dr Cp]) 1 cap PO DAILY JUANA Non-Formulary Medication (Lamotrigine [Lamictal]) 150 mg PO BEDTIME JUANA Non-Formulary Medication (Melatonin [Melatonin]) 30 mg PO BEDTIME JUANA Non-Formulary Medication (Mirtazapine [Remeron]) 30 mg PO BEDTIME JUANA Non-Formulary Medication (Ondansetron [Ondansetron]) 4 mg PO Q8H PRN PRN Reason: Nausea Non-Formulary Medication (Potassium Bicarbonate/Cit Ac [Effer-K]) 25 meq PO DAILY JUANA Non-Formulary Medication (Tizanidine [Zanaflex]) 2 mg PO BID JUANA Non-Formulary Medication (Topiramate [Topamax]) 100 mg PO BEDTIME JUANA Pantoprazole Sodium (Protonix) 80 mg PO DAILY JUANA Rosuvastatin Calcium (Crestor) 10 mg PO BEDTIME JUANA Silver Sulfadiazine (Silvadene 1% Cream 400 Gm) gm TOP BID JUANA Sodium Chloride (Saline Flush) 10 ml FLUSH ASDIRECTED PRN PRN Reason: Keep Vein Open Tolterodine Tartrate (Detrol La 24 Hr) 2 mg PO DAILY JUANA Tramadol HCl (Ultram) 50 mg PO Q6H PRN PRN Reason: Pain Zolpidem Tartrate (Ambien) 30 mg PO BEDTIME JUANA Assessment/Plan Comment:: 1. Admit for Inpatient, PT/OT evaluation, IV fluids for gentle hydration. 2. Wound care: BID dressing changes with Silvadene, Telfa, isabella wraps to lower legs and CoBand to upper arms. 3. Regular diet per patient, TID accuchecks, HgbA1c was 6.0% this week. 4. Dietary consult. 5. Social work consult for placement. 6. FULL CODE. 7. Adjust treatments as necessary. - Mortality Measure Prognosis:: Poor (comorbidities, failure to thrive, recent in family)
[2018-12-18] MEDS ORDERED: Ondansetron 4 MG Tab.DIS PO PRN (18:43)
[2018-12-18] MEDS: Acetaminophen/HYDROcodone 325-5 MG Tab PO PRN (19:13)
[2018-12-18] MEDS: Sodium Chloride 0.9% 1,000 ML IV SCH (19:24)
[2018-12-18] MEDS ORDERED: Zolpidem 10 MG Tab PO SCH ×2 (21:00)
[2018-12-18] MEDS: Enoxaparin 40 MG/0.4 ML Syringe SUBCUT SCH (21:13)
[2018-12-18] MEDS: Gabapentin 300 MG Cap PO SCH (21:14)
[2018-12-18] MEDS: ClonazePAM 1 MG Tab PO SCH (21:14)
[2018-12-18] MEDS: Mirtazapine 30 MG Tab PO SCH (21:15)
[2018-12-18] MEDS: Rosuvastatin 10 MG Tab PO SCH (22:07)
[2018-12-18] MEDS: Ketotifen 0.025% Ophth Soln 5 ML Bottle EYEBOTH SCH (22:08)
[2018-12-18] MEDS: lamoTRIgine 100 MG Tab PO SCH (22:08)
[2018-12-18] MEDS: cycloSPORINE Ophth Drops U/D Box of 30 EYEBOTH SCH (22:10)
[2018-12-18] MEDS: Silver Sulfadiazine 1% Crm 400 GM Jar TOP SCH (22:11)
[2018-12-18] MEDS: tiZANidine 4 MG Tab PO SCH (22:12)
[2018-12-19] MEDS: traMADol 50 MG Tab PO PRN (01:52)
[2018-12-19] MEDS: Acetaminophen/HYDROcodone 325-5 MG Tab PO PRN ×3 (01:52→21:43)
[2018-12-19] MEDS: Pantoprazole 40 MG Tab.CR PO SCH (08:02)
[2018-12-19] MEDS: Sodium Chloride 0.9% 1,000 ML IV SCH ×2 (08:09→21:19)
[2018-12-19] MEDS: Silver Sulfadiazine 1% Crm 400 GM Jar TOP SCH ×2 (08:45→21:50)
[2018-12-19] MEDS ORDERED: Silver Sulfadiazine 1% Crm 50 GM Tube TOP SCH (09:00)
[2018-12-19] MEDS: Gabapentin 300 MG Cap PO SCH ×3 (10:52→21:41)
[2018-12-19] MEDS: Docusate Sodium 100 MG Cap PO SCH (10:53)
[2018-12-19] MEDS: Lisinopril 5 MG Tab PO SCH (10:53)
[2018-12-19] MEDS: Cetirizine 10 MG Tab PO SCH (10:53)
[2018-12-19] MEDS: Fluticasone Propionate Nasal Spray 16 GM Bottle NASBOTH SCH (10:54)
[2018-12-19] MEDS: ClonazePAM 1 MG Tab PO SCH ×2 (10:54→21:41)
[2018-12-19] MEDS: cycloSPORINE Ophth Drops U/D Box of 30 EYEBOTH SCH ×2 (10:55→21:34)
[2018-12-19] MEDS: Ketotifen 0.025% Ophth Soln 5 ML Bottle EYEBOTH SCH ×3 (10:55→21:35)
[2018-12-19] MEDS ORDERED: Carboxymethylcellulose Sodium 0.5% Ophth Soln 15 ML Bottle ONE (11:08)
[2018-12-19] MEDS ORDERED: Tolterodine 2 MG Tab ONE (11:08)
[2018-12-19] MEDS: tiZANidine 4 MG Tab PO SCH ×2 (11:27→21:44)
[2018-12-19] MEDS: Tolterodine 2 MG Cap.ER PO SCH (11:27)
[2018-12-19] MEDS: Carboxymethylcellulose 0.5%/Glycerin 0.9% Ophth Soln 15 ML Bottle EYEBOTH SCH (11:28)
--- NOTE | 2018-12-19 14:45 | PCM.PN ---
- General Info Date of Service: 12/19/18 Subjective Update: Patient did not receive Ambien 30 mg at bedtime last night as pharmacy was not comfortable with her home dose and when ED physician who was covering looked her up in [place] PDMP showed that she was on [address] Mcdermott also didn't feel comfortable with that dose so gave 10 mg at bedtime. Patient was anxious and upset called her and 11 pm at night; discussed with him this morning that dose was changed by night staff even with communication that this was her home dose. Also discussed with him that this was not an appropriate dose and could be causing her falls, increased anxiety, hallucinations and/or worsening of her insomnia. Recommended weaning dose to 10 mg at bedtime and adding Trazodone at bedtime to help with sleep as well as her mood and pain. She was told her she staph infection in her left leg by hospital in [place] after they got home, was started on Clindamycin and states he took out of bottle and put in her pill box at home. Her WBC is normal at [facility] and when repeated here this morning. She was seen by Surgery on Friday for wound care. [place] had used Vaseline gauze on her legs with Silvadene but was changed to Telfa with CoBand when they got back. - Patient Data Vitals - Most Recent: Last Vital Signs Temp 36.2 C 12/19/18 02:00 Pulse 78 12/19/18 06:00 Resp 20 12/19/18 06:00 BP 168/81 H 12/19/18 10:53 Pulse Ox 95 12/19/18 02:00 Weight - Most Recent: 83.461 kg I&O - Last 24 Hours: Intake & Output 12/18/18 12/19/18 12/19/18 22:59 06:59 14:59 Intake Total 147 652 Balance 147 652 Lab Results Last 24 Hours: Laboratory Results - last 24 hr 12/18/18 12/18/18 12/19/18 Range/Units 18:13 20:00 07:25 WBC 5.0 (4.5-12.0) X10-3/uL RBC 3.40 (3.23-5.20) x10(6)uL Hgb 10.7 L (11.5-15.5) g/dL Hct 32.7 (30.0-51.3) % MCV 96.1 H (80-96) fL MCH 31.6 (27.7-33.6) pg MCHC 32.9 (32.2-35.4) g/dL RDW 14.3 (11.5-15.5) % Plt Count 290 (125-369) X10(3)uL Sodium (135-145) mmol/L Potassium (3.5-5.3) mmol/L Chloride (100-110) mmol/L Carbon Dioxide (21-32) mmol/L BUN (7-18) mg/dL Creatinine (0.55-1.02) mg/dL Est Cr Clr Drug Dosing mL/min Estimated GFR (MDRD) (>60) BUN/Creatinine Ratio (9-20) Glucose (80-116) mg/dL POC Glucose 76 L (80-116) mg/dL Calcium (8.6-10.2) mg/dL Magnesium (1.8-2.5) mg/dL Total Bilirubin (0.1-1.3) mg/dL AST (5-25) IU/L ALT (12-36) U/L Alkaline Phosphatase (56-112) IU/L Total Protein (6.0-8.0) g/dL Albumin (3.2-4.6) g/dL Globulin g/dL Albumin/Globulin Ratio Urine Color Yellow (YELLOW) Urine Appearance Clear (CLEAR) Urine pH 5.0 (5.0-6.5) Ur Specific [place] 1.020 (1.010-1.025) Urine Protein Negative (NEGATIVE) mg/dL Urine Glucose (UA) Normal (NORMAL) mg/dL Urine Ketones Negative (NEGATIVE) mg/dL Urine Occult Blood Negative (NEGATIVE) Urine Nitrite Negative (NEGATIVE) Urine Bilirubin Negative (NEGATIVE) Urine Urobilinogen Normal (NEGATIVE) mg/dL Ur Leukocyte Esterase Negative (NEGATIVE) Urine RBC 0-5 (0-5) Urine WBC 0-5 (0-5) Ur Squamous Epith Cells Few H (NS,R,O) Urine Bacteria Few H (NS) 12/19/18 12/19/18 Range/Units 07:25 07:26 WBC (4.5-12.0) X10-3/uL RBC (3.23-5.20) x10(6)uL Hgb (11.5-15.5) g/dL Hct (30.0-51.3) % MCV (80-96) fL MCH (27.7-33.6) pg MCHC (32.2-35.4) g/dL RDW (11.5-15.5) % Plt Count (125-369) X10(3)uL Sodium 145 (135-145) mmol/L Potassium 3.9 (3.5-5.3) mmol/L Chloride 110 (100-110) mmol/L Carbon Dioxide 27 (21-32) mmol/L BUN 12 (7-18) mg/dL Creatinine 0.9 (0.55-1.02) mg/dL Est Cr Clr Drug Dosing 43.30 mL/min Estimated GFR (MDRD) > 60 (>60) BUN/Creatinine Ratio 13.3 (9-20) Glucose 97 D (80-116) mg/dL POC Glucose 96 (80-116) mg/dL Calcium 8.8 (8.6-10.2) mg/dL Magnesium 1.8 (1.8-2.5) mg/dL Total Bilirubin 0.2 (0.1-1.3) mg/dL AST 15 D (5-25) IU/L ALT 20 D (12-36) U/L Alkaline Phosphatase 75 (56-112) IU/L Total Protein 5.9 L (6.0-8.0) g/dL Albumin 2.5 L (3.2-4.6) g/dL Globulin 3.4 g/dL Albumin/Globulin Ratio 0.7 Urine Color (YELLOW) Urine Appearance (CLEAR) Urine pH (5.0-6.5) Ur Specific [place] (1.010-1.025) Urine Protein (NEGATIVE) mg/dL Urine Glucose (UA) (NORMAL) mg/dL Urine Ketones (NEGATIVE) mg/dL Urine Occult Blood (NEGATIVE) Urine Nitrite (NEGATIVE) Urine Bilirubin (NEGATIVE) Urine Urobilinogen (NEGATIVE) mg/dL Ur Leukocyte Esterase (NEGATIVE) Urine RBC (0-5) Urine WBC (0-5) Ur Squamous Epith Cells (NS,R,O) Urine Bacteria (NS) Med Orders - Current: Current Medications Acetaminophen (Tylenol Extra Strength) 500 mg PO Q6H PRN PRN Reason: Pain Hydrocodone Bitart/Acetaminophen ([place] 325-5 Mg) 1 tab PO Q6H PRN PRN Reason: Pain Last Admin: 12/19/18 01:52 Dose: 1 tab Carboxymethylcellulose (Refresh Optive) 0 ml EYEBOTH DAILY [facility] Last Admin: 12/19/18 11:28 Dose: 1 drop Cetirizine HCl (Zyrtec) 10 mg PO DAILY [facility] Last Admin: 12/19/18 10:53 Dose: 10 mg Clonazepam (Klonopin) 1 mg PO BID [facility] Last Admin: 12/19/18 10:54 Dose: 1 mg Cyclosporine (Restasis) 0 each EYEBOTH BID [facility] Last Admin: 12/19/18 10:55 Dose: 1 drop Docusate Sodium (Colace) 100 mg PO DAILY [facility] Last Admin: 12/19/18 10:53 Dose: 100 mg Enoxaparin Sodium (Lovenox) 40 mg SUBCUT Q24H [facility] Last Admin: 12/18/18 21:13 Dose: 40 mg Fluticasone Propionate (Flonase) 0 gm NASBOTH DAILY [facility] Last Admin: 12/19/18 10:54 Dose: 2 spray Gabapentin (Neurontin) 300 mg PO TID [facility] Last Admin: 12/19/18 10:52 Dose: 300 mg Sodium Chloride (Normal Saline) 1,000 mls @ 75 mls/hr IV ASDIRECTED [facility] Last Admin: 12/19/18 08:09 Dose: 75 mls/hr Ketotifen Fumarate (Ketotifen 0.025% Ophth Soln) 0 ml EYEBOTH TID [facility] Last Admin: 12/19/18 10:55 Dose: 1 drop Lamotrigine (Lamotrigine) 150 mg PO BEDTIME [facility] Last Admin: 12/18/18 22:08 Dose: 150 mg Lisinopril (Prinivil) 5 mg PO DAILY [facility] Last Admin: 12/19/18 10:53 Dose: 5 mg Melatonin (Melatonin) 30 mg PO BEDTIME [facility] Metoclopramide HCl (Reglan) 5 mg PO Q8H PRN PRN Reason: Nausea Mirtazapine (Remeron) 30 mg PO BEDTIME [facility] Last Admin: 12/18/18 21:15 Dose: 30 mg Non-Formulary Medication (Calcium Carb/Vitamin D3/Vit K1 [Viactiv Soft Chew]) 1 tab PO DAILY [facility] Non-Formulary Medication (Epinephrine [Epipen]) 0.3 mg IM ONETIME PRN PRN Reason: ALLERGIC REACTION Non-Formulary Medication (Lactobac No.30/Bifidobact No.4 [Ultimate [place] Probiotic Dr Cp]) 1 cap PO DAILY [facility] Non-Formulary Medication (Potassium Bicarbonate/Cit Ac [Effer-K]) 25 meq PO DAILY [facility] Ondansetron HCl (Zofran Odt) 4 mg PO Q8H PRN PRN Reason: NAUSEA Pantoprazole Sodium (Protonix) 80 mg PO DAILY@0730 [facility] Last Admin: 12/19/18 08:02 Dose: 80 mg Rosuvastatin Calcium (Crestor) 10 mg PO BEDTIME [facility] Last Admin: 12/18/18 22:07 Dose: 10 mg Silver Sulfadiazine (Silvadene 1% Cream 400 Gm) 0 gm TOP BID [facility] Sodium Chloride (Saline Flush) 10 ml FLUSH ASDIRECTED PRN PRN Reason: Keep Vein Open Tizanidine HCl (Zanaflex) 2 mg PO BID [facility] Last Admin: 12/19/18 11:27 Dose: 2 mg Tolterodine Tartrate (Detrol La 24 Hr) 2 mg PO DAILY [facility] Last Admin: 12/19/18 11:27 Dose: 2 mg Topiramate (Topamax) 100 mg PO BEDTIME [facility] Tramadol HCl (Ultram) 50 mg PO Q6H PRN PRN Reason: Pain Last Admin: 12/19/18 01:52 Dose: 50 mg Trazodone HCl (Trazodone) 50 mg PO BEDTIME [facility] Zolpidem Tartrate (Ambien) 10 mg PO BEDTIME [facility] Discontinued Medications Artificial Tears (Refresh Tears 0.5%) Confirm Administered Dose 15 ml .ROUTE .STK-MED ONE Stop: 12/19/18 11:09 Last Admin: 12/19/18 11:27 Dose: 1 drop Enoxaparin Sodium (Lovenox) 30 mg SUBCUT Q24H [facility] Last Admin: 12/18/18 20:07 Dose: Not Given Silver Sulfadiazine (Silvadene 1% Cream 400 Gm) 0 gm TOP BID [facility] Last Admin: 12/19/18 08:45 Dose: 1 applic Silver Sulfadiazine (Silvadene 1% Cream 50 Gm) 0 gm TOP BID [facility] Tolterodine Tartrate (Detrol) Confirm Administered Dose 2 mg .ROUTE .STK-MED ONE Stop: 12/19/18 11:09 Last Admin: 12/19/18 11:26 Dose: 2 mg Zolpidem Tartrate (Ambien) 30 mg PO BEDTIME [facility] Last Admin: 12/18/18 23:45 Dose: Not Given Zolpidem Tartrate (Ambien) 10 mg PO BEDTIME [facility] Last Admin: 12/19/18 00:00 Dose: 10 mg - Exam Quality Assessment: Skin Breakdown General: Alert, Oriented (x 3 but poor insight), Cooperative, No Acute Distress Lungs: Clear to Auscultation, Normal Respiratory Effort Cardiovascular: Regular Rate, Regular Rhythm GI/Abdominal Exam: Normal Bowel Sounds, Soft, Non-Tender, No Distention Extremities: Pedal Edema (2+ to knees) Skin: Warm Wound/Incisions: Drainage (green discharge present on all wounds(right upper arm , right forearm, bilateral shins)), Other (Left veras: 5x3 cm, Right veras: 3x4 cm abrasions; right upper arm: 4 cm arcuate tear, right forearm: 2 cm tear) Psy/Mental Status: Alert, Labile Mood - Problem List & Annotations (1) Failure to thrive SNOMED Code(s): 73295876 Code(s): XDA1096 - Status: Acute Current Visit: Yes (2) Malnutrition SNOMED Code(s): 29354656 Code(s): E46 - UNSPECIFIED PROTEIN-CALORIE MALNUTRITION Status: Acute Current Visit: Yes (3) Peripheral edema SNOMED Code(s): 788032341 Code(s): R60.9 - EDEMA, UNSPECIFIED Status: Acute Current Visit: Yes (4) Contusion of leg, right SNOMED Code(s): 46340746 Code(s): S80.11XA - CONTUSION OF RIGHT LOWER LEG, INITIAL ENCOUNTER Status : Acute Current Visit: No (5) Contusion of lower leg, left SNOMED Code(s): 63067018122284518 Code(s): S80.12XA - CONTUSION OF LEFT LOWER LEG, INITIAL ENCOUNTER Status: Acute Current Visit: No (6) Ecchymosis SNOMED Code(s): 983374190 Code(s): R58 - HEMORRHAGE, NOT ELSEWHERE CLASSIFIED Status: Acute Current Visit: No (7) Fall SNOMED Code(s): 8805892, 555655529 Code(s): W19.XXXA - UNSPECIFIED FALL, INITIAL ENCOUNTER Status: Acute Current Visit: No Qualifiers: Encounter type: initial encounter Qualified Code(s): W19.XXXA - Unspecified fall, initial encounter (8) Polypharmacy SNOMED Code(s): 628258905 Code(s): Z79.899 - OTHER VESSEL ENGINEER (CURRENT) DRUG THERAPY Status: Acute Current Visit: No (9) Weakness generalized SNOMED Code(s): 23789829 Code(s): R53.1 - WEAKNESS Status: Acute Current Visit: No (10) Diabetes mellitus type 2 SNOMED Code(s): 28738340 Code(s): E11.9 - TYPE 2 DIABETES MELLITUS WITHOUT COMPLICATIONS Status: Chronic Current Visit: No Annotation/Comment:: continue out pt management. dietary and clinic visits discussed. (11) Dysthymia SNOMED Code(s): 44825688 Code(s): F34.1 - DYSTHYMIC DISORDER Status: Chronic Current Visit: No Annotation/Comment:: no events during stay. continue outpat management. (12) HTN, Benign essential hypertension SNOMED Code(s): 9575188 Code(s): I10 - ESSENTIAL (PRIMARY) HYPERTENSION Status: Chronic Current Visit: No - Problem List Review Problem List Initiated/Reviewed/Updated: Yes - My Orders Last 24 Hours: My Active Orders 12/18/18 17:51 Patient Status [ADT] Routine Blood Glucose Check, Bedside [RC] TIDMEALS Height and Weight [RC] DAILY Oxygen Therapy [RC] PRN Up With Assistance [RC] QID Vital Signs [RC] Q4H Consult to Case Management/Child Welfare Social Worker [CONS] Routine Consult to Local Operator [CONS] Routine OT Evaluation and Treatment [CONS] Routine PT Evaluation and Treatment [CONS] Routine Sodium Chloride 0.9% [Saline Flush] 10 ml FLUSH ASDIRECTED PRN Saline Lock Insert [OM.PC] Routine Resuscitation Status Routine 12/18/18 17:53 Antiembolic Hose [OM.PC] Per Unit Routine 12/18/18 17:59 Acetaminophen [Tylenol Extra Strength] 500 mg PO Q6H PRN Acetaminophen/HYDROcodone [[place] 325-5 MG] 1 tab PO Q6H PRN EPINEPHrine [Epipen] 0.3 mg IM ONETIME PRN Metoclopramide [Reglan] 5 mg PO Q8H PRN traMADol [Ultram] 50 mg PO Q6H PRN 12/18/18 18:37 Communication Order [RC] ASDIRECTED 12/18/18 18:43 Ondansetron [Zofran ODT] 4 mg PO Q8H PRN 12/18/18 18:45 Sodium Chloride 0.9% [Normal Saline] 1,000 ml IV ASDIRECTED 12/18/18 20:00 Enoxaparin [Lovenox] 40 mg SUBCUT Q24H 12/18/18 21:00 ClonazePAM [KlonoPIN] 1 mg PO BID Gabapentin [Neurontin] 300 mg PO TID Ketotifen [Ketotifen 0.025% Ophth Soln] 0 ml EYEBOTH TID Mirtazapine [Remeron] 30 mg PO BEDTIME Rosuvastatin [Crestor] 10 mg PO BEDTIME cycloSPORINE [Restasis] 0 each EYEBOTH BID lamoTRIgine 150 mg PO BEDTIME tiZANidine [Zanaflex] 2 mg PO BID 12/18/18 Dinner Regular Diet [DIET] 12/19/18 07:19 Antiembolic Devices [RC] .Routine VTE/DVT Education [RC] DAILY 12/19/18 07:30 Pantoprazole [ProTONIX] 80 mg PO DAILY@0730 12/19/18 07:39 Gustavo Bandage [RC] ROUTINE 12/19/18 08:40 Wound Care [RC] Q12H 12/19/18 08:45 CULTURE ROUTINE + SMEAR [RM] Routine 12/19/18 09:00 Calcium Carb/Vitamin D3/Vit K1 [Viactiv Soft Chew] 1 tab PO DAILY Carboxymethylcellulos/Glycerin [Refresh Optive] 0 ml EYEBOTH DAILY Cetirizine [ZyrTEC] 10 mg PO DAILY Docusate Sodium [Colace] 100 mg PO DAILY Fluticasone Propionate [Flonase] 0 gm NASBOTH DAILY Lactobac No.30/Bifidobact No.4 [Ultimate [place] Probiotic Dr Cp] 1 cap PO DAILY Lisinopril [Prinivil] 5 mg PO DAILY Potassium Bicarbonate/Cit Ac [Effer-K] 25 meq PO DAILY Tolterodine [Detrol LA 24 Hr] 2 mg PO DAILY 12/19/18 21:00 Melatonin 30 mg PO BEDTIME Silver Sulfadiazine [Silvadene 1% Cream 400 GM] 0 gm TOP BID Topiramate [Topamax] 100 mg PO BEDTIME traZODone 50 mg PO BEDTIME - Plan Plan:: 1. PT/OT evaluation today, IV fluids for gentle hydration. 2. Wound care: Wound culture collected, BID dressing changes with Silvadene, Vaseline gauze secured with Kerlix, gustavo wraps to lower legs and CoBand to upper arms. 3. Regular diet per patient, TID accuchecks, HgbA1c was 6.0% this week. 4. Dietary consult. 5. Social work consult for NH placement, patient has poor insight into her condition and leaves her for long periods at home alone which increases her anxiety that she's scared she will fall. Home Health assessed earlier this week and recommended NH placement for patient. 6. Add Trazodone 50 mg at bedtime, titrate up as needed, Keep Ambien at 10 mg at bedtime. Advised that her high doses of sedating medications can be cause of her falls and be exacerbating her insomnia. Also discussed that she would need to be weaned to go to the NH as they would not continue her medications at this dose again because they are higher than recommended for insomnia as well as they are on the [facility]'s list for medications not recommended in the elderly. 7. Adjust treatments as necessary.
[2018-12-19] MEDS ORDERED: traZODone 50 MG Tab PO SCH (21:00)
[2018-12-19] MEDS: Enoxaparin 40 MG/0.4 ML Syringe SUBCUT SCH (21:40)
[2018-12-19] MEDS: Zolpidem 10 MG Tab PO SCH (21:40)
[2018-12-19] MEDS: Mirtazapine 30 MG Tab PO SCH (21:47)
[2018-12-19] MEDS: TOPIRAMATE 100 MG PO SCH (21:49)
[2018-12-19] MEDS: lamoTRIgine 100 MG Tab PO SCH (22:14)
[2018-12-19] MEDS: Rosuvastatin 10 MG Tab PO SCH (22:14)
[2018-12-19] MEDS: Melatonin 3 MG Tab PO SCH (22:15)
[2018-12-20] MEDS: traMADol 50 MG Tab PO PRN (01:23)
[2018-12-20] MEDS: Pantoprazole 40 MG Tab.CR PO SCH (07:56)
[2018-12-20] MEDS: VIACTIV SOFT CHEW SCH ×2 (08:12→09:37)
[2018-12-20] MEDS: [UNRECOGNIZED DRUG - OTHER] PO SCH ×2 (08:13→09:38)
[2018-12-20] MEDS: KLOR CON PO SCH ×2 (08:13→09:38)
--- NOTE | 2018-12-20 09:17 | PCM.PN ---
- General Info Date of Service: 12/20/18 Subjective Update: Patient slept all night with change to Ambien 10 mg and Trazodone 50 mg, feels she is a little groggy this morning but not sure if its the medication or the fact that she didn't sleep well on Friday night. Feels her legs are about the same, eating breakfast this morning, once she finished she complained of headache and nausea. - Patient Data Vitals - Most Recent: Last Vital Signs Temp 36.6 C 12/20/18 05:00 Pulse 81 12/20/18 05:00 Resp 20 12/20/18 05:00 BP 141/70 H 12/20/18 05:00 Pulse Ox 97 12/20/18 05:00 Weight - Most Recent: 83.189 kg I&O - Last 24 Hours: Intake & Output 12/19/18 12/20/18 12/20/18 22:59 06:59 14:59 Intake Total 511 550 Balance 511 550 Lab Results Last 24 Hours: Laboratory Results - last 24 hr 12/19/18 12/20/18 Range/Units 18:02 04:49 POC Glucose 106 103 (80-116) mg/dL [place] Results Last 24 Hours: Microbiology 12/19/18 08:45 Gram Stain - Final Drainage - Leg, Left Routine Culture - Preliminary No Growth Med Orders - Current: Current Medications Acetaminophen (Tylenol Extra Strength) 500 mg PO Q6H PRN PRN Reason: Pain Hydrocodone Bitart/Acetaminophen ([place] 325-5 Mg) 1 tab PO Q6H PRN PRN Reason: Pain Last Admin: 12/19/18 21:43 Dose: 1 tab Carboxymethylcellulose (Refresh Optive) 0 ml EYEBOTH DAILY [facility] Last Admin: 12/19/18 11:28 Dose: 1 drop Cetirizine HCl (Zyrtec) 10 mg PO DAILY [facility] Last Admin: 12/19/18 10:53 Dose: 10 mg Clonazepam (Klonopin) 1 mg PO BID [facility] Last Admin: 12/19/18 21:41 Dose: 1 mg Cyclosporine (Restasis) 0 each EYEBOTH BID [facility] Last Admin: 12/19/18 21:34 Dose: 1 drop Docusate Sodium (Colace) 100 mg PO DAILY [facility] Enoxaparin Sodium (Lovenox) 40 mg SUBCUT Q24H [facility] Last Admin: 12/19/18 21:40 Dose: 40 mg Fluticasone Propionate (Flonase) 0 gm NASBOTH DAILY [facility] Last Admin: 12/19/18 10:54 Dose: 2 spray Gabapentin (Neurontin) 300 mg PO TID [facility] Last Admin: 12/19/18 21:41 Dose: 300 mg Ketotifen Fumarate (Ketotifen 0.025% Ophth Soln) 0 ml EYEBOTH TID [facility] Last Admin: 12/19/18 21:35 Dose: 1 drop Lamotrigine (Lamotrigine) 150 mg PO BEDTIME [facility] Last Admin: 12/19/18 22:14 Dose: 150 mg Lisinopril (Prinivil) 5 mg PO DAILY [facility] Last Admin: 12/19/18 10:53 Dose: 5 mg Melatonin (Melatonin) 30 mg PO BEDTIME [facility] Last Admin: 12/19/18 22:15 Dose: 30 mg Metoclopramide HCl (Reglan) 5 mg PO Q8H PRN PRN Reason: Nausea Mirtazapine (Remeron) 30 mg PO BEDTIME [facility] Last Admin: 12/19/18 21:47 Dose: 30 mg [Viactiv Soft Chew] (*Pt Own Med*) 1 tab CHEW DAILY [facility] Last Admin: 12/20/18 08:12 Dose: Not Given Ondansetron HCl (Zofran Odt) 4 mg PO Q8H PRN PRN Reason: NAUSEA Pantoprazole Sodium (Protonix) 80 mg PO DAILY@0730 [facility] Last Admin: 12/20/18 07:56 Dose: 80 mg Klor-Con / Er 25 Meq Effervescent Tabs * Pt Own Med* 0 each PO DAILY [facility] Last Admin: 12/20/18 08:13 Dose: Not Given Topiramate 100 Mg (Tabs *Pt Own Med*) 0 each PO BEDTIME [facility] Last Admin: 12/19/18 21:49 Dose: 100 each Rosuvastatin Calcium (Crestor) 10 mg PO BEDTIME [facility] Last Admin: 12/19/18 22:14 Dose: 10 mg Silver Sulfadiazine (Silvadene 1% Cream 400 Gm) 0 gm TOP BID [facility] Last Admin: 12/19/18 21:50 Dose: 1 applic Sodium Chloride (Saline Flush) 10 ml FLUSH ASDIRECTED PRN PRN Reason: Keep Vein Open Tizanidine HCl (Zanaflex) 2 mg PO BID [facility] Last Admin: 12/19/18 21:44 Dose: 2 mg Tolterodine Tartrate (Detrol La 24 Hr) 2 mg PO DAILY [facility] Last Admin: 12/19/18 11:27 Dose: 2 mg Tramadol HCl (Ultram) 50 mg PO Q6H PRN PRN Reason: Pain Last Admin: 12/20/18 01:23 Dose: 50 mg Trazodone HCl (Trazodone) 50 mg PO BEDTIME [facility] Last Admin: 12/19/18 21:43 Dose: 50 mg Zolpidem Tartrate (Ambien) 10 mg PO BEDTIME [facility] Last Admin: 12/19/18 21:40 Dose: 10 mg Discontinued Medications Artificial Tears (Refresh Tears 0.5%) Confirm Administered Dose 15 ml .ROUTE .STK-MED ONE Stop: 12/19/18 11:09 Last Admin: 12/19/18 11:27 Dose: 1 drop Enoxaparin Sodium (Lovenox) 30 mg SUBCUT Q24H [facility] Last Admin: 12/18/18 20:07 Dose: Not Given Sodium Chloride (Normal Saline) 1,000 mls @ 75 mls/hr IV ASDIRECTED [facility] Last Admin: 12/19/18 21:19 Dose: 75 mls/hr Non-Formulary Medication (Epinephrine [Epipen]) 0.3 mg IM ONETIME PRN PRN Reason: ALLERGIC REACTION Non-Formulary Medication (Lactobac No.30/Bifidobact No.4 [Ultimate [place] Probiotic Dr Cp]) 1 cap PO DAILY [facility] Last Admin: 12/19/18 19:51 Dose: Not Given Silver Sulfadiazine (Silvadene 1% Cream 400 Gm) 0 gm TOP BID [facility] Last Admin: 12/19/18 08:45 Dose: 1 applic Silver Sulfadiazine (Silvadene 1% Cream 50 Gm) 0 gm TOP BID [facility] Last Admin: 12/19/18 19:55 Dose: Not Given Tolterodine Tartrate (Detrol) Confirm Administered Dose 2 mg .ROUTE .STK-MED ONE Stop: 12/19/18 11:09 Last Admin: 12/19/18 11:26 Dose: 2 mg Zolpidem Tartrate (Ambien) 30 mg PO BEDTIME [facility] Last Admin: 12/18/18 23:45 Dose: Not Given Zolpidem Tartrate (Ambien) 10 mg PO BEDTIME [facility] Last Admin: 12/19/18 00:00 Dose: 10 mg - Exam General: Alert, Oriented, Cooperative Lungs: Clear to Auscultation, Normal Respiratory Effort Cardiovascular: Regular Rate, Regular Rhythm GI/Abdominal Exam: Normal Bowel Sounds, Soft, Non-Tender, No Distention Extremities: Pedal Edema (2+) Wound/Incisions: Dressing Dry and Intact - Problem List & Annotations (1) Failure to thrive SNOMED Code(s): 08062777 Code(s): WZW1951 - Status: Acute Current Visit: Yes (2) Malnutrition SNOMED Code(s): 27133797 Code(s): E46 - UNSPECIFIED PROTEIN-CALORIE MALNUTRITION Status: Acute Current Visit: Yes (3) Peripheral edema SNOMED Code(s): 547887349 Code(s): R60.9 - EDEMA, UNSPECIFIED Status: Acute Current Visit: Yes (4) Contusion of leg, right SNOMED Code(s): 92699109 Code(s): S80.11XA - CONTUSION OF RIGHT LOWER LEG, INITIAL ENCOUNTER Status : Acute Current Visit: No (5) Contusion of lower leg, left SNOMED Code(s): 37113949104157495 Code(s): S80.12XA - CONTUSION OF LEFT LOWER LEG, INITIAL ENCOUNTER Status: Acute Current Visit: No (6) Ecchymosis SNOMED Code(s): 669658930 Code(s): R58 - HEMORRHAGE, NOT ELSEWHERE CLASSIFIED Status: Acute Current Visit: No (7) Fall SNOMED Code(s): 9209491, 710674187 Code(s): W19.XXXA - UNSPECIFIED FALL, INITIAL ENCOUNTER Status: Acute Current Visit: No Qualifiers: Encounter type: initial encounter Qualified Code(s): W19.XXXA - Unspecified fall, initial encounter (8) Weakness generalized SNOMED Code(s): 11284172 Code(s): R53.1 - WEAKNESS Status: Acute Current Visit: No (9) Diabetes mellitus type 2 SNOMED Code(s): 45518408 Code(s): E11.9 - TYPE 2 DIABETES MELLITUS WITHOUT COMPLICATIONS Status: Chronic Current Visit: No Annotation/Comment:: continue out pt management. dietary and clinic visits discussed. (10) Polypharmacy SNOMED Code(s): 953897151 Code(s): Z79.899 - OTHER [facility] (CURRENT) DRUG THERAPY Status: Acute Current Visit: No (11) Dysthymia SNOMED Code(s): 03579598 Code(s): F34.1 - DYSTHYMIC DISORDER Status: Chronic Current Visit: No Annotation/Comment:: no events during stay. continue outpat management. (12) HTN, Benign essential hypertension SNOMED Code(s): 5140437 Code(s): I10 - ESSENTIAL (PRIMARY) HYPERTENSION Status: Chronic Current Visit: No - Problem List Review Problem List Initiated/Reviewed/Updated: Yes - My Orders Last 24 Hours: My Active Orders 12/19/18 08:40 Wound Care [RC] 12/19/18 08:45 CULTURE ROUTINE + SMEAR [RM] Routine 12/19/18 09:00 Calcium Carb/Vitamin D3/Vit K1 [Viactiv Soft Chew] 1 tab CHEW DAILY Carboxymethylcellulos/Glycerin [Refresh Optive] 0 ml EYEBOTH DAILY Cetirizine [ZyrTEC] 10 mg PO DAILY Docusate Sodium [Colace] 100 mg PO DAILY Fluticasone Propionate [Flonase] 0 gm NASBOTH DAILY Lisinopril [Prinivil] 5 mg PO DAILY Patient's Own Medication [Ptom] 0 each PO DAILY Tolterodine [Detrol LA 24 Hr] 2 mg PO DAILY 12/19/18 21:00 Melatonin 30 mg PO BEDTIME Patient's Own Medication [Ptom] 0 each PO BEDTIME Silver Sulfadiazine [Silvadene 1% Cream 400 GM] 0 gm TOP BID traZODone 50 mg PO BEDTIME - Plan Plan:: 1. Saline lock. 2. Wound care: Wound culture no growth to date, BID dressing changes with Silvadene, Vaseline gauze secured with Kerlix, isabella wraps to lower legs and CoBand to upper arms. 3. Regular diet per patient, TID accuchecks, HgbA1c was 6.0% this week. 4. Dietary consult. 5. Social work consult for NH placement, patient has poor insight into her condition and leaves her for long periods at home alone which increases her anxiety that she's scared she will fall. Home Health assessed earlier this week and recommended NH placement for patient. 6. Will keep at same dose tonight and if she still feels groggy in tomorrow morning will decrease Trazodone to 25 mg. 7. Adjust treatments as necessary.
[2018-12-20] MEDS: Tolterodine 2 MG Cap.ER PO SCH (09:37)
[2018-12-20] MEDS: Docusate Sodium 100 MG Cap PO SCH ×2 (09:37→10:55)
[2018-12-20] MEDS: Fluticasone Propionate Nasal Spray 16 GM Bottle NASBOTH SCH (09:37)
[2018-12-20] MEDS: Ketotifen 0.025% Ophth Soln 5 ML Bottle EYEBOTH SCH ×3 (09:38→21:36)
[2018-12-20] MEDS: cycloSPORINE Ophth Drops U/D Box of 30 EYEBOTH SCH ×2 (09:43→21:44)
[2018-12-20] MEDS: Carboxymethylcellulose 0.5%/Glycerin 0.9% Ophth Soln 15 ML Bottle EYEBOTH SCH (09:43)
[2018-12-20] MEDS: Acetaminophen 500 MG Tab PO PRN ×2 (09:45→18:46)
[2018-12-20] MEDS: tiZANidine 4 MG Tab PO SCH ×2 (09:50→21:45)
[2018-12-20] MEDS: Silver Sulfadiazine 1% Crm 400 GM Jar TOP SCH ×2 (09:59→21:47)
[2018-12-20] MEDS: Cetirizine 10 MG Tab PO SCH (10:34)
[2018-12-20] MEDS: Lisinopril 5 MG Tab PO SCH (10:34)
[2018-12-20] MEDS: Gabapentin 300 MG Cap PO SCH ×3 (10:34→21:42)
[2018-12-20] MEDS: ClonazePAM 1 MG Tab PO SCH ×2 (10:34→21:37)
[2018-12-20] MEDS: Enoxaparin 40 MG/0.4 ML Syringe SUBCUT SCH (21:33)
[2018-12-20] MEDS: Acetaminophen/HYDROcodone 325-5 MG Tab PO PRN (21:34)
[2018-12-20] MEDS: Zolpidem 10 MG Tab PO SCH (21:36)
[2018-12-20] MEDS: Melatonin 3 MG Tab PO SCH (21:37)
[2018-12-20] MEDS: traZODone 50 MG Tab PO SCH (21:39)
[2018-12-20] MEDS: Rosuvastatin 10 MG Tab PO SCH (21:41)
[2018-12-20] MEDS: lamoTRIgine 100 MG Tab PO SCH (21:45)
[2018-12-20] MEDS: TOPIRAMATE 100 MG PO SCH (21:46)
[2018-12-20] MEDS: Mirtazapine 30 MG Tab PO SCH (21:50)
[2018-12-21] MEDS: Acetaminophen 500 MG Tab PO PRN (05:52)
[2018-12-21] MEDS: Pantoprazole 40 MG Tab.CR PO SCH (08:49)
[2018-12-21] MEDS: Docusate Sodium 100 MG Cap PO SCH (08:53)
[2018-12-21] MEDS: Fluticasone Propionate Nasal Spray 16 GM Bottle NASBOTH SCH (08:53)
[2018-12-21] MEDS: VIACTIV SOFT CHEW SCH (08:53)
[2018-12-21] MEDS: Ketotifen 0.025% Ophth Soln 5 ML Bottle EYEBOTH SCH ×3 (08:54→21:31)
[2018-12-21] MEDS: ClonazePAM 1 MG Tab PO SCH ×2 (08:54→21:51)
[2018-12-21] MEDS: Lisinopril 5 MG Tab PO SCH (08:54)
[2018-12-21] MEDS: Gabapentin 300 MG Cap PO SCH ×3 (08:54→21:50)
[2018-12-21] MEDS: [UNRECOGNIZED DRUG - OTHER] PO SCH (08:55)
[2018-12-21] MEDS: Cetirizine 10 MG Tab PO SCH (08:55)
[2018-12-21] MEDS: tiZANidine 4 MG Tab PO SCH ×2 (08:55→21:44)
[2018-12-21] MEDS: KLOR CON PO SCH (08:55)
[2018-12-21] MEDS: cycloSPORINE Ophth Drops U/D Box of 30 EYEBOTH SCH ×2 (08:55→21:40)
[2018-12-21] MEDS: Tolterodine 2 MG Cap.ER PO SCH (09:03)
[2018-12-21] MEDS: Silver Sulfadiazine 1% Crm 400 GM Jar TOP SCH ×2 (09:06→21:41)
[2018-12-21] MEDS: [UNRECOGNIZED DRUG - OTHER] PO SCH ×2 (11:44→19:10)
[2018-12-21] MEDS: MACUHEALTH PO SCH (11:44)
[2018-12-21] MEDS: Carboxymethylcellulose Sodium 0.5% Ophth Soln 15 ML Bottle EYEBOTH SCH (11:45)
[2018-12-21] MEDS: Carboxymethylcellulose 0.5%/Glycerin 0.9% Ophth Soln 15 ML Bottle EYEBOTH SCH (12:24)
--- NOTE | 2018-12-21 15:17 | PCM.PN ---
- General Info Date of Service: 12/21/18 Subjective Update: Slept well overnight, woke up with headache but it is almost gone. Eating breakfast fine. Will do daily dressing changes on her right arm and twice a day dressing changes on her legs. Her wound culture had no growth. PT/OT to see today. Also social work looking at jail placement for restorative cares. - Patient Data Vitals - Most Recent: Last Vital Signs Temp 36.6 C 12/21/18 08:00 Pulse 82 12/21/18 08:00 Resp 18 12/21/18 08:00 BP 158/78 H 12/21/18 08:54 Pulse Ox 98 12/21/18 08:00 Weight - Most Recent: 83.597 kg Lab Results Last 24 Hours: Laboratory Results - last 24 hr 12/20/18 12/21/18 12/21/18 Range/Units 17:25 05:51 11:45 POC Glucose 119 H 91 129 H (80-116) mg/dL [place] Results Last 24 Hours: Microbiology 12/19/18 08:45 Gram Stain - Final Drainage - Leg, Left Routine Culture - Final No Growth Med Orders - Current: Current Medications Acetaminophen (Tylenol Extra Strength) 500 mg PO Q6H PRN PRN Reason: Pain Last Admin: 12/21/18 05:52 Dose: 500 mg Hydrocodone Bitart/Acetaminophen ([place] 325-5 Mg) 1 tab PO Q6H PRN PRN Reason: Pain Last Admin: 12/20/18 21:34 Dose: 1 tab Artificial Tears (Refresh Tears 0.5%) 0 ml EYEBOTH DAILY [facility] Last Admin: 12/21/18 11:45 Dose: 3 drop Cetirizine HCl (Zyrtec) 10 mg PO DAILY [facility] Last Admin: 12/21/18 08:55 Dose: 10 mg Clonazepam (Klonopin) 1 mg PO BID [facility] Last Admin: 12/21/18 08:54 Dose: 1 mg Cyclosporine (Restasis) 0 each EYEBOTH BID [facility] Last Admin: 12/21/18 08:55 Dose: 1 drop Docusate Sodium (Colace) 100 mg PO DAILY [facility] Last Admin: 12/21/18 08:53 Dose: 100 mg Enoxaparin Sodium (Lovenox) 40 mg SUBCUT Q24H [facility] Last Admin: 09/15/19 21:33 Dose: 40 mg Fluticasone Propionate (Flonase) 0 gm NASBOTH DAILY [facility] Last Admin: 12/21/18 08:53 Dose: 2 spray Gabapentin (Neurontin) 300 mg PO TID [facility] Last Admin: 12/21/18 08:54 Dose: 300 mg Heparin Sodium (Porcine) (Heparin Lock Flush 100 Units/Ml) 500 units FLUSH ASDIRECTED PRN PRN Reason: flush port as per protocol Last Admin: 12/20/18 16:29 Dose: 500 units Ketotifen Fumarate (Ketotifen 0.025% Ophth Soln) 0 ml EYEBOTH TID [facility] Last Admin: 12/21/18 08:54 Dose: 1 drop Lamotrigine (Lamotrigine) 150 mg PO BEDTIME [facility] Last Admin: 12/20/18 21:45 Dose: 150 mg Lisinopril (Prinivil) 5 mg PO DAILY [facility] Last Admin: 12/21/18 08:54 Dose: 5 mg Melatonin (Melatonin) 30 mg PO BEDTIME [facility] Last Admin: 12/20/18 21:37 Dose: 30 mg Metoclopramide HCl (Reglan) 5 mg PO Q8H PRN PRN Reason: Nausea Mirtazapine (Remeron) 30 mg PO BEDTIME [facility] Last Admin: 12/20/18 21:50 Dose: 30 mg [Viactiv Soft Chew] (*Pt Own Med*) 1 tab CHEW DAILY [facility] Last Admin: 12/21/18 08:53 Dose: 1 tab Macuhealth 1 each PO DAILY [facility] Last Admin: 12/21/18 11:44 Dose: 1 each Eyepromise *Ptom 1 each PO 1200,1800 [facility] Last Admin: 12/21/18 11:44 Dose: 1 each Pantoprazole Sodium (Protonix) 80 mg PO DAILY@0730 [facility] Last Admin: 12/21/18 08:49 Dose: 80 mg Klor-Con / Er 25 Meq Effervescent Tabs * Pt Own Med* 0 each PO DAILY [facility] Last Admin: 12/21/18 08:55 Dose: 1 each Topiramate 100 Mg (Tabs *Pt Own Med*) 0 each PO BEDTIME [facility] Last Admin: 12/20/18 21:46 Dose: 1 each Rosuvastatin Calcium (Crestor) 10 mg PO BEDTIME [facility] Last Admin: 12/20/18 21:41 Dose: 10 mg Silver Sulfadiazine (Silvadene 1% Cream 400 Gm) 0 gm TOP BID [facility] Last Admin: 12/21/18 09:06 Dose: 1 applic Sodium Chloride (Saline Flush) 10 ml FLUSH ASDIRECTED PRN PRN Reason: Keep Vein Open Tizanidine HCl (Zanaflex) 2 mg PO BID [facility] Last Admin: 12/21/18 08:55 Dose: 2 mg Tolterodine Tartrate (Detrol La 24 Hr) 2 mg PO DAILY [facility] Last Admin: 12/21/18 09:03 Dose: 2 mg Tramadol HCl (Ultram) 50 mg PO Q6H PRN PRN Reason: Pain Last Admin: 12/20/18 01:23 Dose: 50 mg Trazodone HCl (Trazodone) 25 mg PO BEDTIME [facility] Last Admin: 12/20/18 21:39 Dose: 25 mg Zolpidem Tartrate (Ambien) 10 mg PO BEDTIME [facility] Last Admin: 12/20/18 21:36 Dose: 10 mg Discontinued Medications Artificial Tears (Refresh Tears 0.5%) Confirm Administered Dose 15 ml .ROUTE .STK-MED ONE Stop: 12/19/18 11:09 Last Admin: 12/19/18 11:27 Dose: 1 drop Carboxymethylcellulose (Refresh Optive) 0 ml EYEBOTH DAILY [facility] Last Admin: 12/21/18 12:24 Dose: Not Given Enoxaparin Sodium (Lovenox) 30 mg SUBCUT Q24H [facility] Last Admin: 12/18/18 20:07 Dose: Not Given Sodium Chloride (Normal Saline) 1,000 mls @ 75 mls/hr IV ASDIRECTED [facility] Last Admin: 12/19/18 21:19 Dose: 75 mls/hr Non-Formulary Medication (Epinephrine [Epipen]) 0.3 mg IM ONETIME PRN PRN Reason: ALLERGIC REACTION Non-Formulary Medication (Lactobac No.30/Bifidobact No.4 [Ultimate [place] Probiotic Dr Cp]) 1 cap PO DAILY [facility] Last Admin: 12/19/18 19:51 Dose: Not Given Ondansetron HCl (Zofran Odt) 4 mg PO Q8H PRN PRN Reason: NAUSEA Silver Sulfadiazine (Silvadene 1% Cream 400 Gm) 0 gm TOP BID [facility] Last Admin: 12/19/18 08:45 Dose: 1 applic Silver Sulfadiazine (Silvadene 1% Cream 50 Gm) 0 gm TOP BID [facility] Last Admin: 12/19/18 19:55 Dose: Not Given Silver Sulfadiazine (Silvadene 1% Cream 400 Gm) 0 gm TOP BID [facility] Last Admin: 12/20/18 21:47 Dose: 1 applic Tolterodine Tartrate (Detrol) Confirm Administered Dose 2 mg .ROUTE .STK-MED ONE Stop: 12/19/18 11:09 Last Admin: 12/19/18 11:26 Dose: 2 mg Trazodone HCl (Trazodone) 50 mg PO BEDTIME [facility] Last Admin: 12/19/18 21:43 Dose: 50 mg Zolpidem Tartrate (Ambien) 30 mg PO BEDTIME [facility] Last Admin: 12/18/18 23:45 Dose: Not Given Zolpidem Tartrate (Ambien) 10 mg PO BEDTIME [facility] Last Admin: 12/19/18 00:00 Dose: 10 mg - Exam General: Alert, Oriented, Cooperative, No Acute Distress Lungs: Clear to Auscultation, Normal Respiratory Effort Cardiovascular: Regular Rate, Regular Rhythm GI/Abdominal Exam: Normal Bowel Sounds, Soft, Non-Tender Extremities: Pedal Edema (2+). No: Increased Warmth Skin: Warm, Other (stasis dermatitis BLE) Wound/Incisions: Dressing Dry and Intact Psy/Mental Status: Normal Affect, Normal Mood (feels much better) - Problem List & Annotations (1) Failure to thrive SNOMED Code(s): 14610423 Code(s): RLQ7571 - Status: Acute Current Visit: Yes (2) Malnutrition SNOMED Code(s): 91808770 Code(s): E46 - UNSPECIFIED PROTEIN-CALORIE MALNUTRITION Status: Acute Current Visit: Yes Qualifiers: Protein-calorie malnutrition severity: mild (3) Peripheral edema SNOMED Code(s): 035715603 Code(s): R60.9 - EDEMA, UNSPECIFIED Status: Acute Current Visit: Yes Annotation/Comment:: secondary to venous insufficiency (4) Contusion of leg, right SNOMED Code(s): 63408056 Code(s): S80.11XA - CONTUSION OF RIGHT LOWER LEG, INITIAL ENCOUNTER Status : Acute Current Visit: No (5) Contusion of lower leg, left SNOMED Code(s): 41956151401006763 Code(s): S80.12XA - CONTUSION OF LEFT LOWER LEG, INITIAL ENCOUNTER Status: Acute Current Visit: No (6) Ecchymosis SNOMED Code(s): 753519330 Code(s): R58 - HEMORRHAGE, NOT ELSEWHERE CLASSIFIED Status: Acute Current Visit: No (7) Fall SNOMED Code(s): 5093328, 010584232 Code(s): W19.XXXA - UNSPECIFIED FALL, INITIAL ENCOUNTER Status: Acute Current Visit: No Qualifiers: Encounter type: initial encounter Qualified Code(s): W19.XXXA - Unspecified fall, initial encounter (8) Weakness generalized SNOMED Code(s): 39218775 Code(s): R53.1 - WEAKNESS Status: Acute Current Visit: No (9) Diabetes mellitus type 2 SNOMED Code(s): 39511945 Code(s): E11.9 - TYPE 2 DIABETES MELLITUS WITHOUT COMPLICATIONS Status: Chronic Current Visit: No Annotation/Comment:: continue out pt management. dietary and clinic visits discussed. (10) Polypharmacy SNOMED Code(s): 030688078 Code(s): Z79.899 - OTHER HOTEL CUSTODIAN (CURRENT) DRUG THERAPY Status: Acute Current Visit: No (11) Dysthymia SNOMED Code(s): 04349225 Code(s): F34.1 - DYSTHYMIC DISORDER Status: Chronic Current Visit: No Annotation/Comment:: no events during stay. continue outpat management. (12) HTN, Benign essential hypertension SNOMED Code(s): 5702384 Code(s): I10 - ESSENTIAL (PRIMARY) HYPERTENSION Status: Chronic Current Visit: No - Problem List Review Problem List Initiated/Reviewed/Updated: Yes - My Orders Last 24 Hours: My Active Orders 12/20/18 16:00 Heparin Sodium [Heparin Lock Flush 100 Units/ML] 500 units FLUSH ASDIRECTED PRN 12/20/18 21:00 traZODone 25 mg PO BEDTIME 12/21/18 08:24 Silver Sulfadiazine [Silvadene 1% Cream 400 GM] 0 gm TOP BID 12/21/18 10:00 Non-Formulary Medication [NF Drug] 1 each PO DAILY 12/21/18 10:30 Carboxymethylcellulose Sodium [Refresh Tears 0.5%] 0 ml EYEBOTH DAILY 12/21/18 12:00 Non-Formulary Medication [NF Drug] 1 each PO 1200,1800 - Plan Plan:: 1. Wound care: Wound culture no growth to date, BID dressing changes with Silvadene, Vaseline gauze secured with Kerlix, isabella wraps to lower legs and Daily dressing with vaseline gauze, kerlix & CoBand to upper arms. 2. Regular diet per patient, TID accuchecks, repeat her labs tomorrow. 3. Dietary consult. 4. Social work consult for NH placement, patient has poor insight into her condition and leaves her for long periods at home alone which increases her anxiety that she's scared she will fall. Home Health assessed earlier this week and recommended NH placement for patient. 5. Did well on Trazodone 25 mg with sleep. 6. Adjust treatments as necessary.
[2018-12-21] MEDS: Enoxaparin 40 MG/0.4 ML Syringe SUBCUT SCH (21:32)
[2018-12-21] MEDS: Rosuvastatin 10 MG Tab PO SCH (21:34)
[2018-12-21] MEDS: lamoTRIgine 100 MG Tab PO SCH (21:35)
[2018-12-21] MEDS: Melatonin 3 MG Tab PO SCH (21:36)
[2018-12-21] MEDS: TOPIRAMATE 100 MG PO SCH (21:39)
[2018-12-21] MEDS: Mirtazapine 30 MG Tab PO SCH (21:40)
[2018-12-21] MEDS: traZODone 50 MG Tab PO SCH (21:43)
[2018-12-21] MEDS: Zolpidem 10 MG Tab PO SCH (21:50)
[2018-12-22] MEDS: Acetaminophen 500 MG Tab PO PRN (06:20)
[2018-12-22] MEDS: Pantoprazole 40 MG Tab.CR PO SCH ×2 (06:21→07:12)
[2018-12-22] MEDS: Acetaminophen/HYDROcodone 325-5 MG Tab PO PRN (08:11)
[2018-12-22] MEDS: Gabapentin 300 MG Cap PO SCH ×3 (08:11→21:20)
[2018-12-22] MEDS: Silver Sulfadiazine 1% Crm 400 GM Jar TOP SCH ×2 (08:18→21:22)
[2018-12-22] MEDS: cycloSPORINE Ophth Drops U/D Box of 30 EYEBOTH SCH ×2 (08:54→21:22)
[2018-12-22] MEDS: VIACTIV SOFT CHEW SCH (08:55)
[2018-12-22] MEDS: Tolterodine 2 MG Cap.ER PO SCH (08:56)
[2018-12-22] MEDS: Ketotifen 0.025% Ophth Soln 5 ML Bottle EYEBOTH SCH ×3 (08:56→21:21)
[2018-12-22] MEDS: Fluticasone Propionate Nasal Spray 16 GM Bottle NASBOTH SCH (08:56)
[2018-12-22] MEDS: Cetirizine 10 MG Tab PO SCH (08:56)
[2018-12-22] MEDS: Docusate Sodium 100 MG Cap PO SCH (08:56)
[2018-12-22] MEDS: Lisinopril 5 MG Tab PO SCH (08:57)
[2018-12-22] MEDS: tiZANidine 4 MG Tab PO SCH ×2 (08:57→21:20)
[2018-12-22] MEDS: [UNRECOGNIZED DRUG - OTHER] PO SCH (08:58)
[2018-12-22] MEDS: KLOR CON PO SCH (08:58)
[2018-12-22] MEDS: Carboxymethylcellulose Sodium 0.5% Ophth Soln 15 ML Bottle EYEBOTH SCH (08:58)
[2018-12-22] MEDS: MACUHEALTH PO SCH (08:59)
[2018-12-22] MEDS: ClonazePAM 1 MG Tab PO SCH ×2 (10:31→21:20)
--- NOTE | 2018-12-22 14:28 | PCM.PN ---
- General Info Date of Service: 12/22/18 Subjective Update: Patient slept well overnight, was sleeping soundly when I went to round so returned after lunch. She has been doing well with meals, dietary was in and added more protein to her diet. Had a hard boiled egg this morning. Her legs feel better. Ambulating in the halls with PT/OT. Recommended SNF with restorative therapies, they are looking at [facility] in [place] for placement. - Patient Data Vitals - Most Recent: Last Vital Signs Temp 36.6 C 12/22/18 07:45 Pulse 80 12/22/18 07:45 Resp 20 12/22/18 07:45 BP 153/80 H 12/22/18 08:57 Pulse Ox 97 12/22/18 07:45 Weight - Most Recent: 83.597 kg Lab Results Last 24 Hours: Laboratory Results - last 24 hr 12/21/18 12/22/18 Range/Units 17:41 06:30 Sodium 145 (135-145) mmol/L Potassium 3.6 (3.5-5.3) mmol/L Chloride 109 (100-110) mmol/L Carbon Dioxide 29 (21-32) mmol/L BUN 14 (7-18) mg/dL Creatinine 1.0 (0.55-1.02) mg/dL Est Cr Clr Drug Dosing 38.97 mL/min Estimated GFR (MDRD) 54 L (>60) BUN/Creatinine Ratio 14.0 (9-20) Glucose 97 (80-116) mg/dL POC Glucose 112 (80-116) mg/dL Calcium 10.0 (8.6-10.2) mg/dL Total Bilirubin 0.2 (0.1-1.3) mg/dL AST 17 D (5-25) IU/L ALT 23 D (12-36) U/L Alkaline Phosphatase 72 (56-112) IU/L Total Protein 6.2 (6.0-8.0) g/dL Albumin 2.6 L (3.2-4.6) g/dL Globulin 3.6 g/dL Albumin/Globulin Ratio 0.7 Med Orders - Current: Current Medications Acetaminophen (Tylenol Extra Strength) 500 mg PO Q6H PRN PRN Reason: Pain Last Admin: 12/22/18 06:20 Dose: 500 mg Hydrocodone Bitart/Acetaminophen ([place] 325-5 Mg) 1 tab PO Q6H PRN PRN Reason: Pain Last Admin: 12/22/18 08:11 Dose: 1 tab Artificial Tears (Refresh Tears 0.5%) 0 ml EYEBOTH DAILY [facility] Last Admin: 12/22/18 08:58 Dose: 1 drop Cetirizine HCl (Zyrtec) 10 mg PO DAILY [facility] Last Admin: 12/22/18 08:56 Dose: 10 mg Clonazepam (Klonopin) 1 mg PO BID [facility] Last Admin: 12/22/18 10:31 Dose: 1 mg Cyclosporine (Restasis) 0 each EYEBOTH BID [facility] Last Admin: 12/22/18 08:54 Dose: 1 drop Docusate Sodium (Colace) 100 mg PO DAILY [facility] Last Admin: 12/22/18 08:56 Dose: 100 mg Enoxaparin Sodium (Lovenox) 40 mg SUBCUT Q24H [facility] Last Admin: 12/21/18 21:32 Dose: 40 mg Fluticasone Propionate (Flonase) 0 gm NASBOTH DAILY [facility] Last Admin: 12/22/18 08:56 Dose: 1 spray Gabapentin (Neurontin) 300 mg PO TID [facility] Last Admin: 12/22/18 08:11 Dose: 300 mg Heparin Sodium (Porcine) (Heparin Lock Flush 100 Units/Ml) 500 units FLUSH ASDIRECTED PRN PRN Reason: flush port as per protocol Last Admin: 12/22/18 06:40 Dose: 500 units Ketotifen Fumarate (Ketotifen 0.025% Ophth Soln) 0 ml EYEBOTH TID [facility] Last Admin: 12/22/18 08:56 Dose: 1 drop Lamotrigine (Lamotrigine) 150 mg PO BEDTIME [facility] Last Admin: 12/21/18 21:35 Dose: 150 mg Lisinopril (Prinivil) 5 mg PO DAILY [facility] Last Admin: 12/22/18 08:57 Dose: 5 mg Melatonin (Melatonin) 30 mg PO BEDTIME [facility] Last Admin: 12/21/18 21:36 Dose: 30 mg Metoclopramide HCl (Reglan) 5 mg PO Q8H PRN PRN Reason: Nausea Mirtazapine (Remeron) 30 mg PO BEDTIME [facility] Last Admin: 12/21/18 21:40 Dose: 30 mg [Viactiv Soft Chew] (*Pt Own Med*) 1 tab CHEW DAILY [facility] Last Admin: 12/22/18 08:55 Dose: 1 tab Macuhealth 1 each PO DAILY [facility] Last Admin: 12/22/18 08:59 Dose: 1 each Eyepromise *Ptom 1 each PO 1200,1800 [facility] Last Admin: 12/21/18 19:10 Dose: 1 each Pantoprazole Sodium (Protonix) 80 mg PO DAILY@0730 [facility] Last Admin: 12/22/18 07:12 Dose: Not Given Klor-Con / Er 25 Meq Effervescent Tabs * Pt Own Med* 0 each PO DAILY [facility] Last Admin: 12/22/18 08:58 Dose: 1 each Topiramate 100 Mg (Tabs *Pt Own Med*) 0 each PO BEDTIME [facility] Last Admin: 12/21/18 21:39 Dose: 1 each Rosuvastatin Calcium (Crestor) 10 mg PO BEDTIME [facility] Last Admin: 12/21/18 21:34 Dose: 10 mg Silver Sulfadiazine (Silvadene 1% Cream 400 Gm) 0 gm TOP BID [facility] Last Admin: 12/22/18 08:18 Dose: 1 applic Sodium Chloride (Saline Flush) 10 ml FLUSH ASDIRECTED PRN PRN Reason: Keep Vein Open Last Admin: 12/22/18 06:39 Dose: 10 ml Tizanidine HCl (Zanaflex) 2 mg PO BID [facility] Last Admin: 12/22/18 08:57 Dose: 2 mg Tolterodine Tartrate (Detrol La 24 Hr) 2 mg PO DAILY [facility] Last Admin: 12/22/18 08:56 Dose: 2 mg Tramadol HCl (Ultram) 50 mg PO Q6H PRN PRN Reason: Pain Last Admin: 12/20/18 01:23 Dose: 50 mg Trazodone HCl (Trazodone) 25 mg PO BEDTIME [facility] Last Admin: 12/21/18 21:43 Dose: 25 mg Zolpidem Tartrate (Ambien) 10 mg PO BEDTIME [facility] Last Admin: 12/21/18 21:50 Dose: 10 mg Discontinued Medications Artificial Tears (Refresh Tears 0.5%) Confirm Administered Dose 15 ml .ROUTE .STK-MED ONE Stop: 12/19/18 11:09 Last Admin: 12/19/18 11:27 Dose: 1 drop Carboxymethylcellulose (Refresh Optive) 0 ml EYEBOTH DAILY [facility] Last Admin: 12/21/18 12:24 Dose: Not Given Enoxaparin Sodium (Lovenox) 30 mg SUBCUT Q24H [facility] Last Admin: 12/18/18 20:07 Dose: Not Given Sodium Chloride (Normal Saline) 1,000 mls @ 75 mls/hr IV ASDIRECTED [facility] Last Admin: 12/19/18 21:19 Dose: 75 mls/hr Non-Formulary Medication (Epinephrine [Epipen]) 0.3 mg IM ONETIME PRN PRN Reason: ALLERGIC REACTION Non-Formulary Medication (Lactobac No.30/Bifidobact No.4 [Ultimate [place] Probiotic Dr Cp]) 1 cap PO DAILY [facility] Last Admin: 12/19/18 19:51 Dose: Not Given Ondansetron HCl (Zofran Odt) 4 mg PO Q8H PRN PRN Reason: NAUSEA Silver Sulfadiazine (Silvadene 1% Cream 400 Gm) 0 gm TOP BID [facility] Last Admin: 12/19/18 08:45 Dose: 1 applic Silver Sulfadiazine (Silvadene 1% Cream 50 Gm) 0 gm TOP BID [facility] Last Admin: 12/19/18 19:55 Dose: Not Given Silver Sulfadiazine (Silvadene 1% Cream 400 Gm) 0 gm TOP BID [facility] Last Admin: 12/20/18 21:47 Dose: 1 applic Tolterodine Tartrate (Detrol) Confirm Administered Dose 2 mg .ROUTE .STK-MED ONE Stop: 12/19/18 11:09 Last Admin: 12/19/18 11:26 Dose: 2 mg Trazodone HCl (Trazodone) 50 mg PO BEDTIME [facility] Last Admin: 12/19/18 21:43 Dose: 50 mg Zolpidem Tartrate (Ambien) 30 mg PO BEDTIME [facility] Last Admin: 12/18/18 23:45 Dose: Not Given Zolpidem Tartrate (Ambien) 10 mg PO BEDTIME [facility] Last Admin: 12/19/18 00:00 Dose: 10 mg - Exam General: Alert, Oriented (x3), Cooperative, No Acute Distress Lungs: Clear to Auscultation, Normal Respiratory Effort Cardiovascular: Regular Rate, Regular Rhythm GI/Abdominal Exam: Normal Bowel Sounds, Soft, Non-Tender, No Distention Wound/Incisions: Dressing Dry and Intact (unable to assess edema dressing in place.) - Problem List & Annotations (1) Failure to thrive SNOMED Code(s): 68612782 Code(s): MHL7429 - Status: Acute Current Visit: Yes (2) Malnutrition SNOMED Code(s): 19493310 Code(s): E46 - UNSPECIFIED PROTEIN-CALORIE MALNUTRITION Status: Acute Current Visit: Yes Qualifiers: Protein-calorie malnutrition severity: mild (3) Peripheral edema SNOMED Code(s): 208422419 Code(s): R60.9 - EDEMA, UNSPECIFIED Status: Acute Current Visit: Yes Annotation/Comment:: secondary to venous insufficiency (4) Contusion of leg, right SNOMED Code(s): 55965405 Code(s): S80.11XA - CONTUSION OF RIGHT LOWER LEG, INITIAL ENCOUNTER Status : Acute Current Visit: No (5) Contusion of lower leg, left SNOMED Code(s): 16091321616924573 Code(s): S80.12XA - CONTUSION OF LEFT LOWER LEG, INITIAL ENCOUNTER Status: Acute Current Visit: No (6) Ecchymosis SNOMED Code(s): 852546540 Code(s): R58 - HEMORRHAGE, NOT ELSEWHERE CLASSIFIED Status: Acute Current Visit: No (7) Fall SNOMED Code(s): 5587267, 661781444 Code(s): W19.XXXA - UNSPECIFIED FALL, INITIAL ENCOUNTER Status: Acute Current Visit: No Qualifiers: Encounter type: initial encounter Qualified Code(s): W19.XXXA - Unspecified fall, initial encounter (8) Weakness generalized SNOMED Code(s): 83478674 Code(s): R53.1 - WEAKNESS Status: Acute Current Visit: No (9) Diabetes mellitus type 2 SNOMED Code(s): 77235466 Code(s): E11.9 - TYPE 2 DIABETES MELLITUS WITHOUT COMPLICATIONS Status: Chronic Current Visit: No Annotation/Comment:: continue out pt management. dietary and clinic visits discussed. (10) Polypharmacy SNOMED Code(s): 714535774 Code(s): Z79.899 - OTHER DETENTION (CURRENT) DRUG THERAPY Status: Acute Current Visit: No (11) Dysthymia SNOMED Code(s): 84337899 Code(s): F34.1 - DYSTHYMIC DISORDER Status: Chronic Current Visit: No Annotation/Comment:: no events during stay. continue outpat management. (12) HTN, Benign essential hypertension SNOMED Code(s): 0371500 Code(s): I10 - ESSENTIAL (PRIMARY) HYPERTENSION Status: Chronic Current Visit: No - Problem List Review Problem List Initiated/Reviewed/Updated: Yes - Plan Plan:: 1. Wound care: Wound culture no growth to date, BID dressing changes with Silvadene, Vaseline gauze secured with Kerlix, isabella wraps to lower legs and Daily dressing with vaseline gauze, kerlix & CoBand to upper arms. 2. Regular diet per patient, TID accuchecks. 3. Dietary consult. 4. Social work consult for [facility] placement, patient has poor insight into her condition and leaves her for long periods at home alone which increases her anxiety that she's scared she will fall. Home Health assessed earlier this week and recommended NH placement for patient. 5. Trazodone 25 mg with sleep. 6. Adjust treatments as necessary.
[2018-12-22] MEDS: [UNRECOGNIZED DRUG - OTHER] PO SCH ×2 (14:43→18:49)
[2018-12-22] MEDS: Enoxaparin 40 MG/0.4 ML Syringe SUBCUT SCH (21:14)
[2018-12-22] MEDS: TOPIRAMATE 100 MG PO SCH (21:19)
[2018-12-22] MEDS: Mirtazapine 30 MG Tab PO SCH (21:20)
[2018-12-22] MEDS: Rosuvastatin 10 MG Tab PO SCH (21:20)
[2018-12-22] MEDS: lamoTRIgine 100 MG Tab PO SCH (21:20)
[2018-12-22] MEDS: Melatonin 3 MG Tab PO SCH (21:21)
[2018-12-22] MEDS: traZODone 50 MG Tab PO SCH (21:24)
[2018-12-22] MEDS: Zolpidem 10 MG Tab PO SCH (21:27)
[2018-12-23] MEDS: Acetaminophen/HYDROcodone 325-5 MG Tab PO PRN ×2 (01:45→20:49)
[2018-12-23] MEDS: Pantoprazole 40 MG Tab.CR PO SCH (06:46)
[2018-12-23] MEDS: Silver Sulfadiazine 1% Crm 400 GM Jar TOP SCH ×2 (07:45→21:41)
--- NOTE | 2018-12-23 08:04 | PCM.PN ---
- General Info Date of Service: 12/23/18 Subjective Update: Patient is sleeping well, has a little hangover in the morning but she's not bothered by that. Her skin tears are healing, nursing doing dressing changes during visit. Left leg contusion/abrasion is healing well, right leg is has some discharge but improving. Edema has improved. Working with PT/OT. - Patient Data Vitals - Most Recent: Last Vital Signs Temp 36.6 C 12/23/18 00:00 Pulse 84 12/23/18 00:00 Resp 16 12/23/18 00:00 BP 105/48 L 12/23/18 00:00 Pulse Ox 93 L 12/23/18 00:00 Weight - Most Recent: 82.639 kg Lab Results Last 24 Hours: Laboratory Results - last 24 hr 12/22/18 12/22/18 12/23/18 Range/Units 14:46 18:41 06:43 POC Glucose 113 180 H 92 D (80-116) mg/dL Med Orders - Current: Current Medications Acetaminophen (Tylenol Extra Strength) 500 mg PO Q6H PRN PRN Reason: Pain Last Admin: 12/22/18 06:20 Dose: 500 mg Hydrocodone Bitart/Acetaminophen ([place] 325-5 Mg) 1 tab PO Q6H PRN PRN Reason: Pain Last Admin: 12/23/18 01:45 Dose: 1 tab Artificial Tears (Refresh Tears 0.5%) 0 ml EYEBOTH DAILY [facility] Last Admin: 12/22/18 08:58 Dose: 1 drop Cetirizine HCl (Zyrtec) 10 mg PO DAILY [facility] Last Admin: 12/22/18 08:56 Dose: 10 mg Clonazepam (Klonopin) 1 mg PO BID [facility] Last Admin: 12/22/18 21:20 Dose: 1 mg Cyclosporine (Restasis) 0 each EYEBOTH BID [facility] Last Admin: 12/22/18 21:22 Dose: 1 drop Docusate Sodium (Colace) 100 mg PO DAILY [facility] Last Admin: 12/22/18 08:56 Dose: 100 mg Enoxaparin Sodium (Lovenox) 40 mg SUBCUT Q24H [facility] Last Admin: 12/22/18 21:14 Dose: 40 mg Fluticasone Propionate (Flonase) 0 gm NASBOTH DAILY [facility] Last Admin: 12/22/18 08:56 Dose: 1 spray Gabapentin (Neurontin) 300 mg PO TID [facility] Last Admin: 12/22/18 21:20 Dose: 300 mg Heparin Sodium (Porcine) (Heparin Lock Flush 100 Units/Ml) 500 units FLUSH ASDIRECTED PRN PRN Reason: flush port as per protocol Last Admin: 12/22/18 06:40 Dose: 500 units Ketotifen Fumarate (Ketotifen 0.025% Ophth Soln) 0 ml EYEBOTH TID [facility] Last Admin: 12/22/18 21:21 Dose: 1 drop Lamotrigine (Lamotrigine) 150 mg PO BEDTIME [facility] Last Admin: 12/22/18 21:20 Dose: 150 mg Lisinopril (Prinivil) 5 mg PO DAILY [facility] Last Admin: 12/22/18 08:57 Dose: 5 mg Melatonin (Melatonin) 30 mg PO BEDTIME [facility] Last Admin: 12/22/18 21:21 Dose: 30 mg Metoclopramide HCl (Reglan) 5 mg PO Q8H PRN PRN Reason: Nausea Mirtazapine (Remeron) 30 mg PO BEDTIME [facility] Last Admin: 12/22/18 21:20 Dose: 30 mg [Viactiv Soft Chew] (*Pt Own Med*) 1 tab CHEW DAILY [facility] Last Admin: 12/22/18 08:55 Dose: 1 tab [place] 1 each PO DAILY [facility] Last Admin: 12/22/18 08:59 Dose: 1 each Eyepromise *Ptom 1 each PO 1200,1800 [facility] Last Admin: 12/22/18 18:49 Dose: 1 each Pantoprazole Sodium (Protonix) 80 mg PO DAILY@0730 [facility] Last Admin: 12/23/18 06:46 Dose: 80 mg Klor-Con / Er 25 Meq Effervescent Tabs * Pt Own Med* 0 each PO DAILY [facility] Last Admin: 12/22/18 08:58 Dose: 1 each Topiramate 100 Mg (Tabs *Pt Own Med*) 0 each PO BEDTIME [facility] Last Admin: 12/22/18 21:19 Dose: 1 each Rosuvastatin Calcium (Crestor) 10 mg PO BEDTIME [facility] Last Admin: 12/22/18 21:20 Dose: 10 mg Silver Sulfadiazine (Silvadene 1% Cream 400 Gm) 0 gm TOP BID [facility] Last Admin: 12/22/18 21:22 Dose: 1 applic Sodium Chloride (Saline Flush) 10 ml FLUSH ASDIRECTED PRN PRN Reason: Keep Vein Open Last Admin: 12/22/18 06:39 Dose: 10 ml Tizanidine HCl (Zanaflex) 2 mg PO BID [facility] Last Admin: 12/22/18 21:20 Dose: 2 mg Tolterodine Tartrate (Detrol La 24 Hr) 2 mg PO DAILY [facility] Last Admin: 12/22/18 08:56 Dose: 2 mg Tramadol HCl (Ultram) 50 mg PO Q6H PRN PRN Reason: Pain Last Admin: 12/20/18 01:23 Dose: 50 mg Trazodone HCl (Trazodone) 25 mg PO BEDTIME [facility] Last Admin: 12/22/18 21:24 Dose: 25 mg Zolpidem Tartrate (Ambien) 10 mg PO BEDTIME [facility] Last Admin: 12/22/18 21:27 Dose: 10 mg Discontinued Medications Artificial Tears (Refresh Tears 0.5%) Confirm Administered Dose 15 ml .ROUTE .STK-MED ONE Stop: 12/19/18 11:09 Last Admin: 12/19/18 11:27 Dose: 1 drop Carboxymethylcellulose (Refresh Optive) 0 ml EYEBOTH DAILY [facility] Last Admin: 12/21/18 12:24 Dose: Not Given Enoxaparin Sodium (Lovenox) 30 mg SUBCUT Q24H [facility] Last Admin: 12/18/18 20:07 Dose: Not Given Sodium Chloride (Normal Saline) 1,000 mls @ 75 mls/hr IV ASDIRECTED [facility] Last Admin: 12/19/18 21:19 Dose: 75 mls/hr Non-Formulary Medication (Epinephrine [Epipen]) 0.3 mg IM ONETIME PRN PRN Reason: ALLERGIC REACTION Non-Formulary Medication (Lactobac No.30/Bifidobact No.4 [Ultimate [place] Probiotic Dr Cp]) 1 cap PO DAILY [facility] Last Admin: 12/19/18 19:51 Dose: Not Given Ondansetron HCl (Zofran Odt) 4 mg PO Q8H PRN PRN Reason: NAUSEA Silver Sulfadiazine (Silvadene 1% Cream 400 Gm) 0 gm TOP BID [facility] Last Admin: 12/19/18 08:45 Dose: 1 applic Silver Sulfadiazine (Silvadene 1% Cream 50 Gm) 0 gm TOP BID [facility] Last Admin: 12/19/18 19:55 Dose: Not Given Silver Sulfadiazine (Silvadene 1% Cream 400 Gm) 0 gm TOP BID [facility] Last Admin: 12/20/18 21:47 Dose: 1 applic Tolterodine Tartrate (Detrol) Confirm Administered Dose 2 mg .ROUTE .STK-MED ONE Stop: 12/19/18 11:09 Last Admin: 12/19/18 11:26 Dose: 2 mg Trazodone HCl (Trazodone) 50 mg PO BEDTIME [facility] Last Admin: 12/19/18 21:43 Dose: 50 mg Zolpidem Tartrate (Ambien) 30 mg PO BEDTIME [facility] Last Admin: 12/18/18 23:45 Dose: Not Given Zolpidem Tartrate (Ambien) 10 mg PO BEDTIME [facility] Last Admin: 12/19/18 00:00 Dose: 10 mg - Exam General: Alert, Oriented (person place), Cooperative, No Acute Distress Lungs: Clear to Auscultation, Normal Respiratory Effort Cardiovascular: Regular Rate, Regular Rhythm GI/Abdominal Exam: Normal Bowel Sounds, Soft, Non-Tender, No Distention Extremities: Pedal Edema (1+ in bilateral lower calves) Skin: Warm Wound/Incisions: Healing Well, No Drainage (right arm, left arm or LLE), Drainage (RLE) - Problem List & Annotations (1) Failure to thrive SNOMED Code(s): 59780716 Code(s): ZLD0905 - Status: Acute Current Visit: Yes (2) Malnutrition SNOMED Code(s): 31883695 Code(s): E46 - UNSPECIFIED PROTEIN-CALORIE MALNUTRITION Status: Acute Current Visit: Yes Qualifiers: Protein-calorie malnutrition severity: mild (3) Peripheral edema SNOMED Code(s): 758323087 Code(s): R60.9 - EDEMA, UNSPECIFIED Status: Acute Current Visit: Yes Annotation/Comment:: secondary to venous insufficiency (4) Contusion of leg, right SNOMED Code(s): 55210142 Code(s): S80.11XA - CONTUSION OF RIGHT LOWER LEG, INITIAL ENCOUNTER Status : Acute Current Visit: No (5) Contusion of lower leg, left SNOMED Code(s): 96685732092445245 Code(s): S80.12XA - CONTUSION OF LEFT LOWER LEG, INITIAL ENCOUNTER Status: Acute Current Visit: No (6) Ecchymosis SNOMED Code(s): 212006392 Code(s): R58 - HEMORRHAGE, NOT ELSEWHERE CLASSIFIED Status: Acute Current Visit: No (7) Fall SNOMED Code(s): 6019514, 522457512 Code(s): W19.XXXA - UNSPECIFIED FALL, INITIAL ENCOUNTER Status: Acute Current Visit: No Qualifiers: Encounter type: initial encounter Qualified Code(s): W19.XXXA - Unspecified fall, initial encounter (8) Weakness generalized SNOMED Code(s): 17120761 Code(s): R53.1 - WEAKNESS Status: Acute Current Visit: No (9) Diabetes mellitus type 2 SNOMED Code(s): 12430598 Code(s): E11.9 - TYPE 2 DIABETES MELLITUS WITHOUT COMPLICATIONS Status: Chronic Current Visit: No Annotation/Comment:: continue out pt management. dietary and clinic visits discussed. (10) Polypharmacy SNOMED Code(s): 347616055 Code(s): Z79.899 - OTHER [employer] (CURRENT) DRUG THERAPY Status: Acute Current Visit: No (11) Dysthymia SNOMED Code(s): 46381965 Code(s): F34.1 - DYSTHYMIC DISORDER Status: Chronic Current Visit: No Annotation/Comment:: no events during stay. continue outpat management. (12) HTN, Benign essential hypertension SNOMED Code(s): 9395572 Code(s): I10 - ESSENTIAL (PRIMARY) HYPERTENSION Status: Chronic Current Visit: No - Problem List Review Problem List Initiated/Reviewed/Updated: Yes - Plan Plan:: 1. Wound care: Wound culture no growth to date, BID dressing changes to Right lower leg with Silvadene, Vaseline gauze secured with Kerlix, gustavo wraps; DAILY dressing change for Left lower leg with Silvadene, Vaseline gauze secured with Kerlix and Gustavo Wraps. DAILY dressing with Vaseline gauze, Kerlix & CoBand to upper arms. 2. Regular diet per patient, TID Accu-checks. 3. Dietary consult. 4. Social work consult for [facility], patient has poor insight into her condition and leaves her for long periods at home alone which increases her anxiety that she's scared she will fall. Home Health assessed last week, recommended NH placement for patient. 5. Trazodone 25 mg with sleep. 6. Adjust treatments as necessary.
[2018-12-23] MEDS: Docusate Sodium 100 MG Cap PO SCH (08:37)
[2018-12-23] MEDS: tiZANidine 4 MG Tab PO SCH ×2 (08:38→21:44)
[2018-12-23] MEDS: Lisinopril 5 MG Tab PO SCH (08:38)
[2018-12-23] MEDS: Cetirizine 10 MG Tab PO SCH (08:38)
[2018-12-23] MEDS: Tolterodine 2 MG Cap.ER PO SCH (08:38)
[2018-12-23] MEDS: Carboxymethylcellulose Sodium 0.5% Ophth Soln 15 ML Bottle EYEBOTH SCH (08:39)
[2018-12-23] MEDS: Fluticasone Propionate Nasal Spray 16 GM Bottle NASBOTH SCH (08:40)
[2018-12-23] MEDS: Ketotifen 0.025% Ophth Soln 5 ML Bottle EYEBOTH SCH ×3 (08:40→21:40)
[2018-12-23] MEDS: cycloSPORINE Ophth Drops U/D Box of 30 EYEBOTH SCH ×2 (08:41→21:37)
[2018-12-23] MEDS: VIACTIV SOFT CHEW SCH (08:41)
[2018-12-23] MEDS: MACUHEALTH PO SCH (08:43)
[2018-12-23] MEDS: [UNRECOGNIZED DRUG - OTHER] PO SCH (08:44)
[2018-12-23] MEDS: KLOR CON PO SCH (08:44)
[2018-12-23] MEDS: ClonazePAM 1 MG Tab PO SCH ×2 (08:56→21:47)
[2018-12-23] MEDS: Gabapentin 300 MG Cap PO SCH ×3 (08:56→21:47)
[2018-12-23] MEDS: [UNRECOGNIZED DRUG - OTHER] PO SCH ×2 (12:50→17:33)
[2018-12-23] MEDS: Enoxaparin 40 MG/0.4 ML Syringe SUBCUT SCH (21:02)
[2018-12-23] MEDS: traZODone 50 MG Tab PO SCH (21:38)
[2018-12-23] MEDS: Zolpidem 10 MG Tab PO SCH (21:40)
[2018-12-23] MEDS: Melatonin 3 MG Tab PO SCH (21:43)
[2018-12-23] MEDS: TOPIRAMATE 100 MG PO SCH (21:45)
[2018-12-23] MEDS: Mirtazapine 30 MG Tab PO SCH (21:46)
[2018-12-23] MEDS: Rosuvastatin 10 MG Tab PO SCH (21:48)
[2018-12-23] MEDS: lamoTRIgine 100 MG Tab PO SCH (21:49)
[2018-12-23] MEDS: traMADol 50 MG Tab PO PRN (23:26)
[2018-12-24] MEDS: Pantoprazole 40 MG Tab.CR PO SCH ×2 (05:27→06:58)
[2018-12-24] MEDS: Acetaminophen 500 MG Tab PO PRN (05:28)
[2018-12-24] MEDS: VIACTIV SOFT CHEW SCH (08:27)
[2018-12-24] MEDS: Docusate Sodium 100 MG Cap PO SCH (08:27)
[2018-12-24] MEDS: Tolterodine 2 MG Cap.ER PO SCH (08:28)
[2018-12-24] MEDS: Fluticasone Propionate Nasal Spray 16 GM Bottle NASBOTH SCH (08:29)
[2018-12-24] MEDS: Ketotifen 0.025% Ophth Soln 5 ML Bottle EYEBOTH SCH (08:29)
[2018-12-24] MEDS: Gabapentin 300 MG Cap PO SCH (08:32)
[2018-12-24] MEDS: ClonazePAM 1 MG Tab PO SCH (08:32)
[2018-12-24] MEDS: Lisinopril 5 MG Tab PO SCH (08:33)
[2018-12-24] MEDS: MACUHEALTH PO SCH (08:33)
[2018-12-24] MEDS: KLOR CON PO SCH (08:33)
[2018-12-24] MEDS: [UNRECOGNIZED DRUG - OTHER] PO SCH (08:33)
[2018-12-24] MEDS: cycloSPORINE Ophth Drops U/D Box of 30 EYEBOTH SCH (08:34)
[2018-12-24] MEDS: Carboxymethylcellulose Sodium 0.5% Ophth Soln 15 ML Bottle EYEBOTH SCH (08:34)
[2018-12-24] MEDS: Silver Sulfadiazine 1% Crm 400 GM Jar TOP SCH (08:35)
[2018-12-24] MEDS: tiZANidine 4 MG Tab PO SCH (08:35)
[2018-12-24] MEDS: Cetirizine 10 MG Tab PO SCH (08:36)
[2018-12-24] MEDS ORDERED: Tuberculin, PPD 5 Units/0.1 ML 1 ML MDV IDERM ONE (09:23)
[2018-12-24 11:47] VITALS: BP 135/62; PULSE 86
--- NOTE | 2018-12-24 12:03 | PCM.DCSUM1 ---
Discharge Summary - Hospital Course HPI Initial Comments: Majority of history obtained from and records from her PCP Sonu Hoffmann PA-C: patient has been declining over the past month, she had stressful time down in [place] as her son was dying from cirrhosis and they only had a few days with him before he was comatose. When her and daughter were out she tried getting up off the couch recliner and fell hitting her shins on the coffee table, she tried stopping the bleeding with paper towels and sat down on the couch until her and daughter came home. They cleaned her up and srinath wrapped her legs. When they were at the hospital next day her grandson noticed that she was bleeding through the bandages and took her to the ER. [place] WBC was [id number] and she spent 12 hours in ER before reaching the floor. No fractures per but multiple skin tears and abrasions. Her WBC resolved the next morning. She has been seen Friday, Friday and again today at [facility], Friday and today by Sonu Hoffmann PA-C and Friday by Dr Mckeon for her leg wounds and to remove non-healing scab on her right ear. She has not been eating very much and drinking only enough to stay hydrated. Her weight is up 15 pounds in the last 2 weeks. No history of Heart failure. thinks at one time she was told that she had varicose veins. 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 Dr Mckeon advised twice a day dressing changes with silvadene and Telfa secured with CoBand. He cleaned up the wounds on her leg, his note states 5 x 3 cm in size and dressed that day. Her has been doing her dressing changes and they were last changed prior to coming to the hospital. On Friday she was set up with Home Health because of falls and declining function but Home Health when they assessed stated she was her required cares were beyond what they could do and recommended NH placement. Records from [facility] were reviewed and are in her chart at nurses station. Diagnosis: Stroke: No - Discharge Data Discharge Date: 12/24/18 Discharge Disposition: DC/Tfer to SNF 03 Condition: Stable - Referral to Home Health Date of Face to Face Encounter: 12/24/18 Reason for Homebound Status: wound care, fall, polypharmacy Primary Care Physician: Sissy Parks NP Skilled Need: wound care, PT/OT with restorative services. Anticipate patient needs 30 days or less for skilled care. Will need reassessment at [facility] if she needs more than 30 days. - Discharge Diagnosis/Problem(s) (1) Failure to thrive SNOMED Code(s): 94996818 ICD Code: [id number] - Status: Acute (2) Malnutrition SNOMED Code(s): 53046088 ICD Code: E46 - UNSPECIFIED PROTEIN-CALORIE MALNUTRITION Status: Acute Qualifiers: Protein-calorie malnutrition severity: mild (3) Peripheral edema SNOMED Code(s): 414887673 ICD Code: R60.9 - EDEMA, UNSPECIFIED Status: Chronic Problem Details: secondary to venous insufficiency (4) Contusion of leg, right SNOMED Code(s): 59449370 ICD Code: S80.11XA - CONTUSION OF RIGHT LOWER LEG, INITIAL ENCOUNTER Status : Acute (5) Contusion of lower leg, left SNOMED Code(s): 57477146189485079 ICD Code: S80.12XA - CONTUSION OF LEFT LOWER LEG, INITIAL ENCOUNTER Status : Acute (6) Ecchymosis SNOMED Code(s): 370212744 ICD Code: R58 - HEMORRHAGE, NOT ELSEWHERE CLASSIFIED Status: Acute (7) Fall SNOMED Code(s): 7853271, 975665637 ICD Code: W19.XXXA - UNSPECIFIED FALL, INITIAL ENCOUNTER Status: Acute Qualifiers: Encounter type: initial encounter Qualified Code(s): W19.XXXA - Unspecified fall, initial encounter (8) Weakness generalized SNOMED Code(s): 54858505 ICD Code: R53.1 - WEAKNESS Status: Acute (9) Diabetes mellitus type 2 SNOMED Code(s): 81920368 ICD Code: E11.9 - TYPE 2 DIABETES MELLITUS WITHOUT COMPLICATIONS Status: Chronic Problem Details: continue out pt management. dietary and clinic visits discussed. (10) Polypharmacy SNOMED Code(s): 406272676 ICD Code: Z79.899 - OTHER FILLING HAULER (CURRENT) DRUG THERAPY Status: Chronic (11) Dysthymia SNOMED Code(s): 43646547 ICD Code: F34.1 - DYSTHYMIC DISORDER Status: Chronic Problem Details: no events during stay. continue outpat management. (12) HTN, Benign essential hypertension SNOMED Code(s): 3910234 ICD Code: I10 - ESSENTIAL (PRIMARY) HYPERTENSION Status: Chronic - Patient Summary/Data Consults: Consultations 12/18/18 17:51 Consult to Case Management/Curer Acid Drum [CONS] Routine Comment: Physician Instructions: Service(s) to be Consulted: Curer Acid Drum Reason for Consult: half-way/swing bed placement Case Management Specialty/Curer Acid Drum: Shoeshiner Special Instructions: Home Health saw once and stated she was too much for them to help, recommended NH placement. Patient would like to try swingbed and if she does not progress then NH. Consult to Brewery Cellar Worker [CONS] Routine Comment: Physician Instructions: Quantity: Reason for Consult: failure to thrive, malnutrition OT Evaluation and Treatment [CONS] Routine Please Evaluate and Treat. OT Reason for Consult: Strengthening Special Instructions: recent falls, s/p CVA x3, hx Guillian Andes, deconditioning, failure to thrive in adult This query below is only for informational purposes and is not editable. PT Evaluation and Treatment [CONS] Routine Please Evaluate and Treat. PT Reason for Consult: Strengthening Special Instructions: recent falls, s/p CVA x3, hx Guillian Andes, deconditioning, failure to thrive in adult This query below is only for informational purposes and is not editable. Hospital Course: Patient was admitted, had PT/OT evaluations. Reviewed medications, decreased Ambien to 10 mg at bedtime and started Trazodone 50 mg initially then she had trouble waking the next day, felt like she had a hangover. Trazodone was decreased to 25 mg at bedtime. Patient slept well after this, was able to wake up and do therapies during the day without difficulty. Her peripheral edema improved with ambulation and SRINATH wraps. Her strength improved during stay. Wounds on her arms and legs were healing nicely at time of discharge. Her arms and left leg were decreased to ONCE daily dressing changes with Silvadene, Vaseline gauze, cotton 4x4, secured with Co-Band(arms), or Kerlix & SRINATH wrap( Left leg). Wound culture was obtained on admission from Left leg(as patient reported staph infection that [facility] had advise her of), it was negative. No growth to date. Right lower leg continue TWICE daily dressing change: Silvadene, Vaseline gauze, covered with cotton 4x4 secured with Kerlix then SRINATH wraps. Wounds cleaned with sterile saline. Dietary was consulted, protein was increased in her diet. She tolerated this well. She also maintained blood sugars, diet controlled Diabetic. Will go to [facility] for PT/OT with restorative services, wound care. Anticipate 30 days or less for skilled services. If she requires more time, then [facility] will need to renew screen. - Patient Instructions Diet: Diabetic Diet Activity: As Tolerated Showering/Bathing: May Shower Notify Provider of: Fever, Increased Pain, Swelling and Redness, Drainage, Nausea and/or Vomiting Other/Special Instructions: Discharge to [facility], follow up with Dr Nguyen in 1 week. - Discharge Plan *PRESCRIPTION DRUG MONITORING PROGRAM REVIEWED*: Yes *COPY OF PRESCRIPTION DRUG MONITORING REPORT IN PATIENT ANNY: Yes Prescriptions/Med Rec: traZODone HCl [Trazodone HCl] 25 mg PO BEDTIME 30 Days #30 tablet Zolpidem [Ambien] 10 mg PO BEDTIME PRN 30 Days #30 tab PRN Reason: Insomnia Home Medications: Home Meds ClonazePAM [KlonoPIN] 1 mg PO BID 11/13/13 [History] Mirtazapine [Remeron] 30 mg PO BEDTIME 11/13/13 [History] Pantoprazole [ProTONIX] 80 mg PO DAILY 05/01/14 [History] Calcium Carb/Vitamin D3/Vit K1 [Viactiv Soft Chew] 1 tab PO DAILY 01/22/16 [ History] Carboxymethylcellulos/Glycerin [Refresh Optive] 3 drop EYEBOTH DAILY 01/22/16 [ History] Ketotifen [Ketotifen 0.025% Ophth Soln] 1 drop EYEBOTH TID 01/22/16 [History] Potassium Bicarbonate/Cit Ac [Effer-K] 25 meq PO DAILY 01/22/16 [History] cycloSPORINE [Restasis] 1 drop EYEBOTH BID 01/22/16 [History] Ondansetron 4 mg PO Q8H PRN 05/11/17 [History] tiZANidine [Zanaflex] 2 mg PO BID 03/20/18 [History] Acetaminophen [Tylenol Extra Strength] 500 mg PO Q6H PRN 12/18/18 [History] Acetaminophen/HYDROcodone [[place] 325-5 MG] 1 tab PO Q6H PRN 12/18/18 [History] Cetirizine [ZyrTEC] 10 mg PO DAILY 12/18/18 [History] Docusate Sodium 100 mg PO DAILY 12/18/18 [History] EPINEPHrine [Epipen] 0.3 mg IM ONETIME PRN 12/18/18 [History] Eye Promise Ez Tears 2 cap PO DAILY 12/18/18 [History] Fluticasone Propionate [Flonase] 2 spray NASBOTH DAILY 12/18/18 [History] Gabapentin [Neurontin] 300 mg PO TID 12/18/18 [History] Lactobac No.30/Bifidobact No.4 [Ultimate [place] Probiotic Dr Cp] 1 cap PO DAILY 12/18/18 [History] Lisinopril 5 mg PO DAILY 12/18/18 [History] Melatonin 30 mg PO BEDTIME 12/18/18 [History] Metoclopramide HCl [Reglan] 5 mg PO Q8H PRN 12/18/18 [History] Rosuvastatin [Crestor] 10 mg PO BEDTIME 12/18/18 [History] Silver Sulfadiazine 1 applic TOP BID 12/18/18 [History] Tolterodine Tartrate [Detrol LA] 2 mg PO DAILY 12/18/18 [History] Topiramate [Topamax] 100 mg PO BEDTIME 12/18/18 [History] lamoTRIgine [LaMICtal] 150 mg PO BEDTIME 12/18/18 [History] traMADol [Ultram] 50 mg PO Q6H PRN 12/18/18 [History] Zolpidem [Ambien] 10 mg PO BEDTIME PRN 30 Days #30 tab 12/24/18 [Rx] traZODone HCl [Trazodone HCl] 25 mg PO BEDTIME 30 Days #30 tablet 12/24/18 [Rx] Patient Handouts: Lactobacillus Oral formulations, Fall Prevention in Hospitals , Adult, Venous Thromboembolism Prevention, Probiotics - Discharge Summary/Plan Comment DC Time >30 min.: Yes - Patient Data Vitals - Most Recent: Last Vital Signs Temp 36.6 C 12/24/18 08:00 Pulse 86 12/24/18 08:00 Resp 16 12/24/18 08:00 BP 152/78 H 12/24/18 08:33 Pulse Ox 93 L 12/24/18 08:00 Weight - Most Recent: 82.599 kg Lab Results - Last 24 hrs: Laboratory Results - last 24 hr 12/23/18 12/24/18 Range/Units 18:09 05:31 POC Glucose 110 94 (80-116) mg/dL Med Orders - Current: Current Medications Discontinued Medications Acetaminophen (Tylenol Extra Strength) 500 mg PO Q6H PRN PRN Reason: Pain Last Admin: 12/24/18 05:28 Dose: 500 mg Hydrocodone Bitart/Acetaminophen ([place] 325-5 Mg) 1 tab PO Q6H PRN PRN Reason: Pain Last Admin: 12/23/18 20:49 Dose: 1 tab Artificial Tears (Refresh Tears 0.5%) Confirm Administered Dose 15 ml .ROUTE .STK-MED ONE Stop: 12/19/18 11:09 Last Admin: 12/19/18 11:27 Dose: 1 drop Artificial Tears (Refresh Tears 0.5%) 0 ml EYEBOTH DAILY [facility] Last Admin: 12/24/18 08:34 Dose: 3 drop Carboxymethylcellulose (Refresh Optive) 0 ml EYEBOTH DAILY [facility] Last Admin: 12/21/18 12:24 Dose: Not Given Cetirizine HCl (Zyrtec) 10 mg PO DAILY [facility] Last Admin: 12/24/18 08:36 Dose: 10 mg Clonazepam (Klonopin) 1 mg PO BID [facility] Last Admin: 12/24/18 08:32 Dose: 1 mg Cyclosporine (Restasis) 0 each EYEBOTH BID [facility] Last Admin: 12/24/18 08:34 Dose: 1 drop Docusate Sodium (Colace) 100 mg PO DAILY [facility] Last Admin: 12/24/18 08:27 Dose: 100 mg Enoxaparin Sodium (Lovenox) 30 mg SUBCUT Q24H [facility] Last Admin: 12/18/18 20:07 Dose: Not Given Enoxaparin Sodium (Lovenox) 40 mg SUBCUT Q24H [facility] Last Admin: 12/23/18 21:02 Dose: 40 mg Fluticasone Propionate (Flonase) 0 gm NASBOTH DAILY [facility] Last Admin: 12/24/18 08:29 Dose: 2 spray Gabapentin (Neurontin) 300 mg PO TID [facility] Last Admin: 12/24/18 08:32 Dose: 300 mg Heparin Sodium (Porcine) (Heparin Lock Flush 100 Units/Ml) 500 units FLUSH ASDIRECTED PRN PRN Reason: flush port as per protocol Last Admin: 12/24/18 09:52 Dose: 500 units Sodium Chloride (Normal Saline) 1,000 mls @ 75 mls/hr IV ASDIRECTED [facility] Last Admin: 12/19/18 21:19 Dose: 75 mls/hr Ketotifen Fumarate (Ketotifen 0.025% Ophth Soln) 0 ml EYEBOTH TID [facility] Last Admin: 12/24/18 08:29 Dose: 1 drop Lamotrigine (Lamotrigine) 150 mg PO BEDTIME [facility] Last Admin: 12/23/18 21:49 Dose: 150 mg Lisinopril (Prinivil) 5 mg PO DAILY [facility] Last Admin: 12/24/18 08:33 Dose: 5 mg Melatonin (Melatonin) 30 mg PO BEDTIME [facility] Last Admin: 12/23/18 21:43 Dose: 30 mg Metoclopramide HCl (Reglan) 5 mg PO Q8H PRN PRN Reason: Nausea Mirtazapine (Remeron) 30 mg PO BEDTIME [facility] Last Admin: 12/23/18 21:46 Dose: 30 mg [Viactiv Soft Chew] (*Pt Own Med*) 1 tab CHEW DAILY [facility] Last Admin: 12/24/18 08:27 Dose: 1 tab Non-Formulary Medication (Epinephrine [Epipen]) 0.3 mg IM ONETIME PRN PRN Reason: ALLERGIC REACTION Non-Formulary Medication (Lactobac No.30/Bifidobact No.4 [Ultimate [place] Probiotic Dr Cp]) 1 cap PO DAILY [facility] Last Admin: 12/19/18 19:51 Dose: Not Given [facility] 1 each PO DAILY [facility] Last Admin: 12/24/18 08:33 Dose: 1 each Eyepromise *Ptom 1 each PO 1200,1800 [facility] Last Admin: 12/23/18 17:33 Dose: 1 each Ondansetron HCl (Zofran Odt) 4 mg PO Q8H PRN PRN Reason: NAUSEA Pantoprazole Sodium (Protonix) 80 mg PO DAILY@0730 [facility] Last Admin: 12/24/18 06:58 Dose: Not Given Klor-Con / Er 25 Meq Effervescent Tabs * Pt Own Med* 0 each PO DAILY [facility] Last Admin: 12/24/18 08:33 Dose: 1 each Topiramate 100 Mg (Tabs *Pt Own Med*) 0 each PO BEDTIME [facility] Last Admin: 12/23/18 21:45 Dose: 1 each Rosuvastatin Calcium (Crestor) 10 mg PO BEDTIME [facility] Last Admin: 12/23/18 21:48 Dose: 10 mg Silver Sulfadiazine (Silvadene 1% Cream 400 Gm) 0 gm TOP BID [facility] Last Admin: 12/19/18 08:45 Dose: 1 applic Silver Sulfadiazine (Silvadene 1% Cream 50 Gm) 0 gm TOP BID [facility] Last Admin: 12/19/18 19:55 Dose: Not Given Silver Sulfadiazine (Silvadene 1% Cream 400 Gm) 0 gm TOP BID [facility] Last Admin: 12/20/18 21:47 Dose: 1 applic Silver Sulfadiazine (Silvadene 1% Cream 400 Gm) 0 gm TOP BID [facility] Last Admin: 12/24/18 08:35 Dose: 1 applic Sodium Chloride (Saline Flush) 10 ml FLUSH ASDIRECTED PRN PRN Reason: Keep Vein Open Last Admin: 12/22/18 06:39 Dose: 10 ml Tizanidine HCl (Zanaflex) 2 mg PO BID [facility] Last Admin: 12/24/18 08:35 Dose: 2 mg Tolterodine Tartrate (Detrol La 24 Hr) 2 mg PO DAILY [facility] Last Admin: 12/24/18 08:28 Dose: 2 mg Tolterodine Tartrate (Detrol) Confirm Administered Dose 2 mg .ROUTE .STK-MED ONE Stop: 12/19/18 11:09 Last Admin: 12/19/18 11:26 Dose: 2 mg Tramadol HCl (Ultram) 50 mg PO Q6H PRN PRN Reason: Pain Last Admin: 12/23/18 23:26 Dose: 50 mg Trazodone HCl (Trazodone) 50 mg PO BEDTIME [facility] Last Admin: 12/19/18 21:43 Dose: 50 mg Trazodone HCl (Trazodone) 25 mg PO BEDTIME [facility] Last Admin: 12/23/18 21:38 Dose: 25 mg Tuberculin PPD (Aplisol) 5 unit IDERM ONETIME ONE Stop: 12/24/18 09:24 Last Admin: 12/24/18 09:51 Dose: 5 unit Zolpidem Tartrate (Ambien) 30 mg PO BEDTIME [facility] Last Admin: 12/18/18 23:45 Dose: Not Given Zolpidem Tartrate (Ambien) 10 mg PO BEDTIME [facility] Last Admin: 12/19/18 00:00 Dose: 10 mg Zolpidem Tartrate (Ambien) 10 mg PO BEDTIME [facility] Last Admin: 12/23/18 21:40 Dose: 10 mg - Exam General: Reports: Alert, Oriented, Cooperative Lungs: Reports: Clear to Auscultation, Normal Respiratory Effort Cardiovascular: Reports: Regular Rate, Regular Rhythm GI/Abdominal Exam: Normal Bowel Sounds, Soft, Non-Tender, No Organomegaly, No Distention, No Abnormal Bruit, No Mass, Pelvis Stable Extremities: Pedal Edema (1+) Skin: Reports: Warm, Dry Wound/Incisions: Reports: Healing Well, Dressing Dry and Intact, No Drainage Psy/Mental Status: Reports: Alert, Normal Affect, Normal Mood
== END 2018-12-24 10:42 | DRG 641 ==
LOC: FB.MS 16:07
PROVIDERS: ADMIT Family Medicine; ATTEND Family Medicine
DX: E44.1 Mild protein-calorie malnutrition (principal); R62.7 Adult failure to thrive; H91.92 Unspecified hearing loss, left ear; H54.7 Unspecified visual loss; I48.91 Unspecified atrial fibrillation; E78.00 Pure hypercholesterolemia, unspecified; I10 Essential (primary) hypertension; F41.9 Anxiety disorder, unspecified; F32.9 Major depressive disorder, single episode, unspecified; E11.9 Type 2 diabetes mellitus without complications; S80.11XA Contusion of right lower leg, initial encounter; S80.12XA Contusion of left lower leg, initial encounter; F34.1 Dysthymic disorder; I87.2 Venous insufficiency (chronic) (peripheral); S51.801A Unspecified open wound of right forearm, initial encounter; S41.101A Unspecified open wound of right upper arm, initial encounter; S81.801A Unspecified open wound, right lower leg, initial encounter; S81.802A Unspecified open wound, left lower leg, initial encounter; W01.198A Fall on same level from slipping, tripping and stumbling with subsequent striking against other object, initial encounter; Z96.659 Presence of unspecified artificial knee joint; Z88.8 Allergy status to other drugs, medicaments and biological substances; Z87.440 Personal history of urinary (tract) infections; Z85.828 Personal history of other malignant neoplasm of skin; Z86.73 Personal history of transient ischemic attack (TIA), and cerebral infarction without residual deficits; Z98.49 Cataract extraction status, unspecified eye; Z90.49 Acquired absence of other specified parts of digestive tract; Z88.1 Allergy status to other antibiotic agents; Z88.5 Allergy status to narcotic agent; Z88.7 Allergy status to serum and vaccine; Z88.6 Allergy status to analgesic agent; Z88.0 Allergy status to penicillin; Z88.2 Allergy status to sulfonamides; Z91.013 Allergy to seafood; Z91.012 Allergy to eggs; Z91.030 Bee allergy status; Z79.899 Other long term (current) drug therapy; Z68.32 Body mass index [BMI] 32.0-32.9, adult
CPT/HCPCS: 36415; 80053; 81001; 82962; 83735; 85027; 86580; 87070; 87205; 94760; 97161-GP; 97165-GO; A9270-GY; J1642; J1650; J7030

== ENCOUNTER → 2019-02-24 | Outpatient (CLI) | payer MEDICARE, BC | LOC: FB.MH 08:00 | PROVIDERS: ATTEND Psychiatry & Neurology Psychiatry | DX: F34.0 Cyclothymic disorder (principal); F41.1 Generalized anxiety disorder | CPT/HCPCS: 99213 ==

== ENCOUNTER 2020-05-27 13:42 | Emergency (ER) | payer MEDICARE, BC ==
[2020-05-27] MEDS ORDERED: Nitrofurantoin Monohydrate/Macrocrystalline 100 MG Cap PO ONE (13:43)
[2020-05-27] MEDS ORDERED: Acetaminophen/oxyCODONE 325-5 MG Tab PO ONE (13:43)
[2020-05-27] MEDS ORDERED: HYDROmorphone 2 MG/ML SDV IVPUSH STA ×2 (14:19→17:40)
[2020-05-27] MEDS ORDERED: Alum Hydroxide/Mag Hydroxide 15 ML, Lidocaine 2% 15 ML PO ONE ×2 (14:27)
--- NOTE | 2020-05-27 14:27 | EDM.PDOC ---
ED HPI GENERAL MEDICAL PROBLEM - General Chief Complaint: Abdominal Pain Stated Complaint: RUQ pain Time Seen by Provider: 05/27/20 13:50 Source of Information: Reports: Patient History Limitations: Reports: No Limitations - History of Present Illness INITIAL COMMENTS - FREE TEXT/NARRATIVE: Patient presented to the ED because of RUQ and epigastric pain which started 6 hours after a colonoscopy on 05/[address] [facility]. The colonoscopy and polypectomy was for a chronic diarrhea. The pain is constant ache,10/10. There is no nausea,vomiting, melanotic stools. There is no fever,chills,cough/cold symptoms. - Related Data Allergies Allergy/AdvReac Type Severity Reaction Status Date / Time bupropion [From Wellbutrin] Allergy Cannot Verified 05/27/20 14:05 Remember ciprofloxacin Allergy Cannot Verified 05/27/20 14:05 Remember codeine Allergy Hives Verified 05/27/20 14:05 cyclobenzaprine Allergy Cannot Verified 05/27/20 14:05 [Cyclobenzaprine] Remember diclofenac sodium Allergy Cannot Verified 05/27/20 14:05 [From Arthrotec 50] Remember feathers Allergy Cannot Verified 05/27/20 14:05 Remember flu vaccine ts (65 Allergy Cannot Verified 05/27/20 14:05 yr+) Remember [From Fluzone High-Dose (PF)] ibuprofen [From Motrin] Allergy Cannot Verified 05/27/20 14:05 Remember iodine Allergy Airway Verified 05/27/20 14:05 Tightness meperidine HCl [From Demerol] Allergy Cannot Verified 05/27/20 14:05 Remember misoprostol Allergy Cannot Verified 05/27/20 14:05 [From Arthrotec 50] Remember Penicillins Allergy Cannot Verified 05/27/20 14:05 Remember propoxyphene Allergy Cannot Verified 05/27/20 14:05 [From Darvocet-N] Remember pseudoephedrine HCl Allergy Cannot Verified 05/27/20 14:05 [From Advil Cold & Sinus] Remember shellfish derived Allergy Anaphylactic Verified 05/27/20 14:05 Shock Sulfa (Sulfonamide Allergy Hives Verified 05/27/20 14:05 Antibiotics) tetanus toxoid, adsorbed Allergy Cannot Verified 05/27/20 14:05 Remember venom-honey bee Allergy Anaphylactic Verified 05/27/20 14:05 Shock aspirin AdvReac STOMACH Verified 05/27/20 14:05 BLEEDING WITH TOO MUCH bupropion HCl AdvReac Cannot Verified 05/27/20 14:05 [From Wellbutrin] Remember celecoxib [From Celebrex] AdvReac Nausea and Verified 05/27/20 14:05 Vomiting clarithromycin AdvReac Diarrhea Verified 05/27/20 14:05 morphine AdvReac Hallucinati Verified 05/27/20 14:05 ons iodine-isopropyl Allergy Severe THROAT Uncoded 05/27/20 14:05 SWELLS SHUT EGGS Allergy Intermediate Difficulty Uncoded 05/27/20 14:05 Breathing Home Meds: Home Meds ClonazePAM [KlonoPIN] 1 mg PO BID 11/13/13 [History] Mirtazapine [Remeron] 30 mg PO BEDTIME 11/13/13 [History] Pantoprazole [ProTONIX] 80 mg PO DAILY 05/01/14 [History] Calcium Carb/Vitamin D3/Vit K1 [Viactiv Soft Chew] 1 tab PO DAILY 01/22/16 [History] Carboxymethylcellulos/Glycerin [Refresh Optive] 3 drop EYEBOTH DAILY 01/22/16 [History] Ketotifen [Ketotifen 0.025% Ophth Soln] 1 drop EYEBOTH TID 01/22/16 [History] Potassium Bicarbonate/Cit Ac [Effer-K] 25 meq PO DAILY 01/22/16 [History] cycloSPORINE [Restasis] 1 drop EYEBOTH BID 01/22/16 [History] Ondansetron 4 mg PO Q8H PRN 05/11/17 [History] tiZANidine [Zanaflex] 2 mg PO BID 03/20/18 [History] Acetaminophen [Tylenol Extra Strength] 500 mg PO Q6H PRN 12/18/18 [History] Acetaminophen/HYDROcodone [[place] 325-5 MG] 1 tab PO Q6H PRN 12/18/18 [History] Cetirizine [ZyrTEC] 10 mg PO DAILY 12/18/18 [History] Docusate Sodium 100 mg PO DAILY 12/18/18 [History] EPINEPHrine [Epipen] 0.3 mg IM ONETIME PRN 12/18/18 [History] Eye Promise Ez Tears 2 cap PO DAILY 12/18/18 [History] Fluticasone Propionate [Flonase] 2 spray NASBOTH DAILY 12/18/18 [History] Gabapentin [Neurontin] 300 mg PO TID 12/18/18 [History] Lactobac No.30/Bifidobact No.4 [Ultimate [place] Probiotic Dr Cp] 1 cap PO DAILY 12/18/18 [History] Melatonin 30 mg PO BEDTIME 12/18/18 [History] Metoclopramide HCl [Reglan] 5 mg PO Q8H PRN 12/18/18 [History] Rosuvastatin [Crestor] 10 mg PO BEDTIME 12/18/18 [History] Silver Sulfadiazine 1 applic TOP BID 12/18/18 [History] Tolterodine Tartrate [Detrol LA] 2 mg PO DAILY 12/18/18 [History] Topiramate [Topamax] 100 mg PO BEDTIME 12/18/18 [History] lamoTRIgine [LaMICtal] 150 mg PO BEDTIME 12/18/18 [History] lisinopriL [Lisinopril] 5 mg PO DAILY 12/18/18 [History] traMADol [Ultram] 50 mg PO Q6H PRN 12/18/18 [History] Zolpidem [Ambien] 10 mg PO BEDTIME PRN 30 Days #30 tab 12/24/18 [Rx] traZODone HCl [Trazodone HCl] 25 mg PO BEDTIME 30 Days #30 tablet 12/24/18 [Rx] Past Medical History HEENT History: Reports: Cataract, Impaired Vision, Other (See Below) Other HEENT History: vertigo Cardiovascular History: Reports: Afib, High Cholesterol, Hypertension Respiratory History: Reports: SOB Gastrointestinal History: Reports: Chronic Constipation, Other (See Below) Other Gastrointestinal History: cyclic retching Genitourinary History: Reports: UTI, 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: Musculoskeletal History: Reports: Other (See Below) Other Musculoskeletal History: rt shoulder pain Neurological History: Reports: CVA, TIA, Other (See Below) Other Neuro History: CVA x 3, Guillian Equality Syndrome Psychiatric History: Reports: Anxiety, Depression Other Psychiatric History: insomnia Endocrine/Metabolic History: Reports: Diabetes, Type II Hematologic History: Reports: None Immunologic History: Reports: None Oncologic (Cancer) History: Reports: Squamous Cell Carcinoma Dermatologic History: Reports: Other (See Below) Other Dermatologic History: left ear and arm skin leison - Infectious Disease History Infectious Disease History: Reports: Chicken Pox, Shingles - Past Surgical History HEENT Surgical History: Reports: Cataract Surgery, Other (See Below) Other HEENT Surgeries/Procedures: cleft lip surgury GI Surgical History: Reports: Appendectomy, Johnathan Fundoplication Musculoskeletal Surgical History: Reports: Knee Replacement Social & Family History - Family History Family Medical History: No Pertinent Family History - Caffeine Use Caffeine Use: Reports: None - Living Situation & Occupation Living situation: Reports: 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) ED ROS GENERAL - Review of Systems Review Of Systems: See Below Constitutional: Reports: No Symptoms HEENT: Reports: No Symptoms Respiratory: Reports: No Symptoms Cardiovascular: Reports: No Symptoms Endocrine: Reports: No Symptoms GI/Abdominal: Reports: Abdominal Pain, Nausea : Reports: No Symptoms Musculoskeletal: Reports: No Symptoms Skin: Reports: No Symptoms Neurological: Reports: No Symptoms ED EXAM, GI/ABD - Physical Exam Exam: See Below Exam Limited By: No Limitations General Appearance: Alert, No Apparent Distress Ears: Normal External Exam, Normal Canal Nose: Normal Inspection, Normal Mucosa, No Blood Throat/Mouth: Normal Inspection, Normal Teeth Head: Atraumatic, Normocephalic Neck: Normal Inspection, Supple, Non-Tender, Full Range of Motion Respiratory/Chest: No Respiratory Distress, Lungs Clear, Normal Breath Sounds Cardiovascular: Normal Peripheral Pulses, Regular Rate, Rhythm, No Edema, No Gallop GI/Abdominal Exam: Normal Bowel Sounds, Soft, No Organomegaly, Other (RUQ and Epigastric tenderness) Back Exam: Normal Inspection, Full Range of Motion Extremities: Normal Inspection, Normal Range of Motion, Non-Tender Neurological: Alert, Oriented, CN II-XII Intact Course - Vital Signs Text/Narrative:: Labs/abd CT result was discussed with patient NS 1 L bolus GI cocktail Dilaudid 0.5 mg IV x1 Last Recorded V/S: Last Vital Signs Temp 36.5 C 05/27/20 13:42 Pulse 77 05/27/20 15:34 Resp 17 05/27/20 15:34 BP 154/76 H 05/27/20 15:34 Pulse Ox 100 05/27/20 15:34 - Orders/Labs/Meds Orders: Active Orders 24 hr Category Date Time Status EKG Documentation Completion [RC] ASDIRECTED Care 05/27/20 17:35 Active Abdomen Pelvis wo Cont [CT] Stat Exams 05/27/20 16:39 Taken CULTURE URINE [RM] Stat Lab 05/27/20 15:45 Ordered Heparin Sodium [Heparin Lock Flush 100 Units/ML] Med 05/27/20 16:21 Active 500 units FLUSH ASDIRECTED PRN Sodium Chloride 0.9% [Normal Saline] 1,000 ml Med 05/27/20 14:30 Active IV ASDIRECTED Sodium Chloride 0.9% [Saline Flush] Med 05/27/20 14:10 Active 10 ml FLUSH ASDIRECTED PRN Saline Lock Insert [OM.PC] Routine Oth 05/27/20 14:10 Ordered EKG 12 Lead [EK] Routine Ther 05/27/20 17:34 Ordered Medication Orders Heparin Sodium (Porcine) (Heparin Lock Flush 100 Units/Ml) 500 units FLUSH ASDIRECTED PRN PRN Reason: Other Sodium Chloride (Normal Saline) 1,000 mls @ 999 mls/hr IV ASDIRECTED JUANA Last Admin: 05/27/20 14:40 Dose: 999 mls/hr Documented by: JAYLA Sodium Chloride (Saline Flush) 10 ml FLUSH ASDIRECTED PRN PRN Reason: Keep Vein Open Last Admin: 05/27/20 14:40 Dose: 10 ml Documented by: JAYLA Labs: Laboratory Tests 05/27/20 05/27/20 05/27/20 Range/Units 14:30 14:35 14:35 WBC 6.1 (3.0-10.3) x10-3/uL RBC 3.80 (3.60-5.20) x10(6)uL Hgb 12.2 (11.4-15.5) g/dL Hct 36.7 (34.2-48.2) % MCV 96.7 (76.7-100.5) fL MCH 32.1 (23.9-33.9) pg MCHC 33.2 (31.9-34.8) g/dL RDW 14.1 (12.3-16.5) % Plt Count 224 (151-488) x10(3)uL MPV 7.4 (7.1-12.4) fL Neut % (Auto) 49.3 (30.8-76.2) % Lymph % (Auto) 35.5 (18.4-52.1) % Yell % (Auto) 11.7 (4.4-15.7) % Eos % (Auto) 2.8 (0.6-8.1) % Baso % (Auto) 0.7 (0.2-1.5) % Neut # (Auto) 3.0 (1.5-6.3) x10-3/uL Lymph # (Auto) 2.2 (1.0-4.4) x10-3/uL Yell # (Auto) 0.7 (0.3-1.0) x10-3/uL Eos # (Auto) 0.2 (0.0-0.8) x10-3/uL Baso # (Auto) 0.0 (0.0-0.1) x10-3/uL Sodium 140 (135-145) mmol/L Potassium 4.0 (3.5-5.3) mmol/L Chloride 105 (100-110) mmol/L Carbon Dioxide 25 (21-32) mmol/L BUN 20 H (7-18) mg/dL Creatinine 1.3 H (0.55-1.02) mg/dL Est Cr Clr Drug Dosing 30.30 mL/min Estimated GFR (MDRD) 40 L (>60) BUN/Creatinine Ratio 15.4 (9-20) Glucose 132 H (80-116) mg/dL Calcium 9.0 (8.6-10.2) mg/dL Total Bilirubin 0.3 (0.1-1.3) mg/dL AST 20 D (5-25) IU/L ALT 30 D (12-36) U/L Alkaline Phosphatase 68 (56-112) IU/L Troponin I 4.6 (4.0-60.3) pg/mL Total Protein 6.7 (6.0-8.0) g/dL Albumin 3.2 (3.2-4.6) g/dL Globulin 3.5 g/dL Albumin/Globulin Ratio 0.9 Amylase 33 (25-115) U/L Lipase (73-393) U/L Urine Color (YELLOW) Urine Appearance (CLEAR) Urine pH (5.0-6.5) Ur Specific [place] (1.010-1.025) Urine Protein (NEGATIVE) mg/dL Urine Glucose (UA) (NORMAL) mg/dL Urine Ketones (NEGATIVE) mg/dL Urine Occult Blood (NEGATIVE) Urine Nitrite (NEGATIVE) Urine Bilirubin (NEGATIVE) Urine Urobilinogen (NEGATIVE) mg/dL Ur Leukocyte Esterase (NEGATIVE) Urine RBC (0-5) Urine WBC (0-5) Ur Squamous Epith Cells (NS,R,O) Urine Bacteria (NS) 05/27/20 05/27/20 Range/Units 14:35 15:35 WBC (3.0-10.3) x10-3/uL RBC (3.60-5.20) x10(6)uL Hgb (11.4-15.5) g/dL Hct (34.2-48.2) % MCV (76.7-100.5) fL MCH (23.9-33.9) pg MCHC (31.9-34.8) g/dL RDW (12.3-16.5) % Plt Count (151-488) x10(3)uL MPV (7.1-12.4) fL Neut % (Auto) (30.8-76.2) % Lymph % (Auto) (18.4-52.1) % Yell % (Auto) (4.4-15.7) % Eos % (Auto) (0.6-8.1) % Baso % (Auto) (0.2-1.5) % Neut # (Auto) (1.5-6.3) x10-3/uL Lymph # (Auto) (1.0-4.4) x10-3/uL Yell # (Auto) (0.3-1.0) x10-3/uL Eos # (Auto) (0.0-0.8) x10-3/uL Baso # (Auto) (0.0-0.1) x10-3/uL Sodium (135-145) mmol/L Potassium (3.5-5.3) mmol/L Chloride (100-110) mmol/L Carbon Dioxide (21-32) mmol/L BUN (7-18) mg/dL Creatinine (0.55-1.02) mg/dL Est Cr Clr Drug Dosing mL/min Estimated GFR (MDRD) (>60) BUN/Creatinine Ratio (9-20) Glucose (80-116) mg/dL Calcium (8.6-10.2) mg/dL Total Bilirubin (0.1-1.3) mg/dL AST (5-25) IU/L ALT (12-36) U/L Alkaline Phosphatase (56-112) IU/L Troponin I (4.0-60.3) pg/mL Total Protein (6.0-8.0) g/dL Albumin (3.2-4.6) g/dL Globulin g/dL Albumin/Globulin Ratio Amylase (25-115) U/L Lipase 50 L (73-393) U/L Urine Color Yellow (YELLOW) Urine Appearance Slightly cloudy (CLEAR) Urine pH 5.0 (5.0-6.5) Ur Specific [place] 1.015 (1.010-1.025) Urine Protein Trace (NEGATIVE) mg/dL Urine Glucose (UA) Normal (NORMAL) mg/dL Urine Ketones Negative (NEGATIVE) mg/dL Urine Occult Blood Moderate H (NEGATIVE) Urine Nitrite Positive H (NEGATIVE) Urine Bilirubin Negative (NEGATIVE) Urine Urobilinogen Normal (NEGATIVE) mg/dL Ur Leukocyte Esterase Large H (NEGATIVE) Urine RBC 5-10 H (0-5) Urine WBC 10-20 H (0-5) Ur Squamous Epith Cells Occasional (NS,R,O) Urine Bacteria Moderate H (NS) Meds: Medications Generic Name Dose Route Start Last Admin Trade Name Freq PRN Reason Stop Dose Admin Heparin Sodium (Porcine) 500 units 05/27/20 16:21 Heparin Lock Flush 100 Units/Ml FLUSH ASDIRECTED PRN Other Sodium Chloride 1,000 mls @ 999 mls/hr 05/27/20 14:30 05/27/20 14:40 Normal Saline IV 999 mls/hr ASDIRECTED JUANA Administration Sodium Chloride 10 ml 05/27/20 14:10 05/27/20 14:40 Saline Flush FLUSH 10 ml ASDIRECTED PRN Administration Keep Vein Open Discontinued Medications Generic Name Dose Route Start Last Admin Trade Name Freq PRN Reason Stop Dose Admin Al Hydroxide/Mg Hydroxide 15 0 ml 05/27/20 14:27 05/27/20 14:47 ml/ Lidocaine HCl 15 ml PO 05/27/20 14:28 30 ml ONETIME ONE Administration Hydromorphone HCl 1 mg 05/27/20 14:19 05/27/20 15:12 Dilaudid IVPUSH 05/27/20 14:20 1 mg NOW STA Administration Hydromorphone HCl 1 mg 05/27/20 17:40 05/27/20 17:50 Dilaudid IVPUSH 05/27/20 17:41 1 mg NOW STA Administration Nitrofurantoin Macrocrystals 100 mg 05/27/20 17:31 05/27/20 18:12 Macrobid PO 05/27/20 17:32 100 mg NOW STA Administration Pantoprazole Sodium 40 mg 05/27/20 17:31 05/27/20 17:47 Protonix Iv IVPUSH 05/27/20 17:32 40 mg ONETIME ONE Administration Simethicone 80 mg 05/27/20 17:31 05/27/20 18:11 Simethicone PO 05/27/20 17:32 80 mg NOW STA Administration Departure - Departure Time of Disposition: 17:30 Disposition: Home, Self-Care 01 Condition: Good Clinical Impression: Abdominal pain UTI (urinary tract infection) Qualifiers: Urinary tract infection type: acute cystitis Hematuria presence: without hematuria Qualified Code(s): N30.00 - Acute cystitis without hematuria - Discharge Information Instructions: Abdominal Pain, Adult, Urinary Tract Infection, Adult, [id number] Referrals: Cm Riggs MD [Primary Care Provider] - Forms: ED Department Discharge Additional Instructions: Please read discharge instructions on abdominal pain and UTI Increase oral intake Macrobid, take 1 tablet twice daily for 5 days Follow up as needed Sepsis Event Note (ED) - Evaluation Sepsis Screening Result: No Definite Risk - Focused Exam Vital Signs: Vital Signs Temp Pulse Resp BP Pulse Ox 05/27/20 15:34 77 17 154/76 H 100 05/27/20 13:42 36.5 C 85 18 134/98 H 95 - My Orders Last 24 Hours: My Active Orders 05/27/20 14:10 Sodium Chloride 0.9% [Saline Flush] 10 ml FLUSH ASDIRECTED PRN Saline Lock Insert [OM.PC] Routine 05/27/20 14:30 Sodium Chloride 0.9% [Normal Saline] 1,000 ml IV ASDIRECTED 05/27/20 15:45 CULTURE URINE [RM] Stat 05/27/20 16:21 Heparin Sodium [Heparin Lock Flush 100 Units/ML] 500 units FLUSH ASDIRECTED PRN 05/27/20 16:39 Abdomen Pelvis wo Cont [CT] Stat 05/27/20 17:34 EKG 12 Lead [EK] Routine 05/27/20 17:35 EKG Documentation Completion [RC] ASDIRECTED - Assessment/Plan Last 24 Hours: My Active Orders 05/27/20 14:10 Sodium Chloride 0.9% [Saline Flush] 10 ml FLUSH ASDIRECTED PRN Saline Lock Insert [OM.PC] Routine 05/27/20 14:30 Sodium Chloride 0.9% [Normal Saline] 1,000 ml IV ASDIRECTED 05/27/20 15:45 CULTURE URINE [RM] Stat 05/27/20 16:21 Heparin Sodium [Heparin Lock Flush 100 Units/ML] 500 units FLUSH ASDIRECTED PRN 05/27/20 16:39 Abdomen Pelvis wo Cont [CT] Stat 05/27/20 17:34 EKG 12 Lead [EK] Routine 05/27/20 17:35 EKG Documentation Completion [RC] ASDIRECTED
[2020-05-27] MEDS ORDERED: Sodium Chloride 0.9% 1,000 ML IV SCH (14:30)
[2020-05-27] MEDS: Sodium Chloride 0.9% 10 ML Syringe FLUSH PRN ×2 (14:40→21:02)
[2020-05-27] MEDS ORDERED: Nitrofurantoin Monohydrate/Macrocrystalline 100 MG Cap PO STA (17:31)
[2020-05-27] MEDS ORDERED: Pantoprazole 40 MG Vial IVPUSH ONE (17:31)
[2020-05-27] MEDS ORDERED: Simethicone 80 MG Tab.Chew PO STA (17:31)
[2020-05-27 22:18] VITALS: BP 155/69; PULSE 75
== END 2020-05-27 21:10 | disposition home or self-care (01) ==
LOC: FB.ED 13:42
DX: N30.00 Acute cystitis without hematuria (principal); I48.91 Unspecified atrial fibrillation; E78.00 Pure hypercholesterolemia, unspecified; I10 Essential (primary) hypertension; E11.9 Type 2 diabetes mellitus without complications; Z86.73 Personal history of transient ischemic attack (TIA), and cerebral infarction without residual deficits; Z88.8 Allergy status to other drugs, medicaments and biological substances; Z88.1 Allergy status to other antibiotic agents; Z88.5 Allergy status to narcotic agent; Z88.6 Allergy status to analgesic agent; Z88.0 Allergy status to penicillin; Z88.2 Allergy status to sulfonamides; Z91.013 Allergy to seafood; Z88.7 Allergy status to serum and vaccine; Z91.030 Bee allergy status; Z79.899 Other long term (current) drug therapy
CPT/HCPCS: 36415; 74176; 80053; 81001; 82150; 83690; 84484; 85025; 87086; 87088; 87186; 93005; 96374; 96375; 96376; 99283; 99284-25; A9270-GY; C9113; J1170; J1642; J7030

== ENCOUNTER 2020-12-20 10:50 | Emergency (ER) | payer MEDICARE, BC ==
[2020-12-20] MEDS ORDERED: Meclizine 25 MG Tab PO ONE (11:49)
--- NOTE | 2020-12-20 13:04 | CT ---
CT HEAD WITHOUT CONTRAST INDICATION: Fell yesterday hitting back of head. TECHNIQUE: Spiral 3.75 mm axial sections were obtained through the brain without contrast with axial, sagittal and coronal reconstructions 12/20/20 and compared with 10/14/18. Total exam DLP was 1244.66 mGy/cm. FINDINGS: The paranasal sinuses and mastoid air cells appear to be well aerated. No cranial fracture site was identified. The orbits appear to be intact. Internal carotid artery calcifications are noted. No shift of midline structures was identified. The ventricles appear fairly stable and mildly prominent compatible with the patient's age and a mild degree of central atrophy. No acute intracranial abnormality was identified - no definite abnormal areas of density were identified to suggest an acute process such as bleeding site, hematoma or acute thrombotic CVA. However, there is some minimal periventricular low density abnormality again noted mostly in the frontal areas and especially on the right, which is compatible with a mild degree of microvascular disease, although other causes of leukoencephalopathy cannot be excluded. The carrasco/white matter interface appears to be intact. IMPRESSION: 1. No acute intracranial abnormality - no bleeding site or hematoma. 2. Minimal microvascular disease may be present with arterial calcifications at the internal carotid arteries - cerebrovascular disease. 3. Minimal central atrophy at least partly compatible with the patient's age. Report was called to Dr. Pepper at 1150 hours 12/20/20. [facility]
--- NOTE | 2020-12-20 13:12 | CR ---
SACRUM AND COCCYX, LUMBAR SPINE INDICATION: Fell on bottom. FINDINGS: Three views of the sacroiliac and coccygeal area were obtained and revealed no definite acute fracture or dislocation. Minimal degenerative changes are noted at the sacroiliac joints. Hypertrophic degenerative changes are noted at vertebral bodies anteriorly L2-3, L3-4 and L5-S1 with narrowing of the disc spaces at L2-3, L3-4, probably at L4-5 to a minimal degree and more prominently at L5-S1. There are some sclerotic changes at the posterior elements from L2 through S1. Overall demineralization may be present raising the question of osteoporosis. The pedicles appear to be intact. Minimal calcification is noted in the abdominal aorta and iliac arteries. IMPRESSION: 1. No definite acute fracture or dislocation. 2. 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 Report was called to Dr. Pepper 1246 hours 12/20/20. [facility]
[2020-12-20 13:21] VITALS: BP 165/72; PULSE 81
--- NOTE | 2020-12-20 13:24 | EDM.PDOC ---
ED HPI GENERAL MEDICAL PROBLEM - General Chief Complaint: Syncope Stated Complaint: FALL Time Seen by Provider: 12/20/20 10:55 Source of Information: Reports: Patient, Family History Limitations: Reports: No Limitations - History of Present Illness INITIAL COMMENTS - FREE TEXT/NARRATIVE: Patient presented to the ED because of head injury, syncope. Patient said that at about 1700 yesterday her left knee gave out, fell on her buttock then backwards hitting the mid occipital on the floor. She is not sure if there was LOC. She also vc/o feeling dizzy for the past month especially on turning her head to the left. There is no nausea or tinnitus. - Related Data Allergies Allergy/AdvReac Type Severity Reaction Status Date / Time bupropion [From Wellbutrin] Allergy Cannot Verified 05/27/20 14:05 Remember ciprofloxacin Allergy Cannot Verified 05/27/20 14:05 Remember codeine Allergy Hives Verified 05/27/20 14:05 cyclobenzaprine Allergy Cannot Verified 05/27/20 14:05 [Cyclobenzaprine] Remember diclofenac sodium Allergy Cannot Verified 05/27/20 14:05 [From Arthrotec 50] Remember feathers Allergy Cannot Verified 05/27/20 14:05 Remember flu vaccine ts (65 Allergy Cannot Verified 05/27/20 14:05 yr+) Remember [From Fluzone High-Dose (PF)] ibuprofen [From Motrin] Allergy Cannot Verified 05/27/20 14:05 Remember iodine Allergy Airway Verified 05/27/20 14:05 Tightness meperidine HCl [From Demerol] Allergy Cannot Verified 05/27/20 14:05 Remember misoprostol Allergy Cannot Verified 05/27/20 14:05 [From Arthrotec 50] Remember Penicillins Allergy Cannot Verified 05/27/20 14:05 Remember propoxyphene Allergy Cannot Verified 05/27/20 14:05 [From Darvocet-N] Remember pseudoephedrine HCl Allergy Cannot Verified 05/27/20 14:05 [From Advil Cold & Sinus] Remember shellfish derived Allergy Anaphylactic Verified 05/27/20 14:05 Shock Sulfa (Sulfonamide Allergy Hives Verified 05/27/20 14:05 Antibiotics) tetanus toxoid, adsorbed Allergy Cannot Verified 05/27/20 14:05 Remember venom-honey bee Allergy Anaphylactic Verified 05/27/20 14:05 Shock aspirin AdvReac STOMACH Verified 05/27/20 14:05 BLEEDING WITH TOO MUCH bupropion HCl AdvReac Cannot Verified 05/27/20 14:05 [From Wellbutrin] Remember celecoxib [From Celebrex] AdvReac Nausea and Verified 05/27/20 14:05 Vomiting clarithromycin AdvReac Diarrhea Verified 05/27/20 14:05 morphine AdvReac Hallucinati Verified 05/27/20 14:05 ons iodine-isopropyl Allergy Severe THROAT Uncoded 05/27/20 14:05 SWELLS SHUT EGGS Allergy Intermediate Difficulty Uncoded 05/27/20 14:05 Breathing Home Meds: Home Meds ClonazePAM [KlonoPIN] 1 mg PO BID 11/13/13 [History] Mirtazapine [Remeron] 30 mg PO BEDTIME 11/13/13 [History] Pantoprazole [ProTONIX] 80 mg PO DAILY 05/01/14 [History] Calcium Carb/Vitamin D3/Vit K1 [Viactiv Soft Chew] 1 tab PO DAILY 01/22/16 [History] Carboxymethylcellulos/Glycerin [Refresh Optive] 3 drop EYEBOTH DAILY 01/22/16 [History] Ketotifen [Ketotifen 0.025% Ophth Soln] 1 drop EYEBOTH TID 01/22/16 [History] Potassium Bicarbonate/Cit Ac [Effer-K] 25 meq PO DAILY 01/22/16 [History] cycloSPORINE [Restasis] 1 drop EYEBOTH BID 01/22/16 [History] Ondansetron 4 mg PO Q8H PRN 05/11/17 [History] tiZANidine [Zanaflex] 2 mg PO BID 03/20/18 [History] Acetaminophen [Tylenol Extra Strength] 500 mg PO Q6H PRN 12/18/18 [History] Acetaminophen/HYDROcodone [HYDROcodone-Acetaminophen 5-325 MG *] 1 tab PO Q6H PRN 12/18/18 [History] Cetirizine [ZyrTEC] 10 mg PO DAILY 12/18/18 [History] Docusate Sodium 100 mg PO DAILY 12/18/18 [History] EPINEPHrine [Epipen] 0.3 mg IM ONETIME PRN 12/18/18 [History] Eye Promise Ez Tears 2 cap PO DAILY 12/18/18 [History] Fluticasone Propionate [Flonase] 2 spray NASBOTH DAILY 12/18/18 [History] Gabapentin [Neurontin] 300 mg PO TID 12/18/18 [History] Lactobac No.30/Bifidobact No.4 [Ultimate [place] Probiotic Dr Cp] 1 cap PO DAILY 12/18/18 [History] Melatonin 30 mg PO BEDTIME 12/18/18 [History] Metoclopramide HCl [Reglan] 5 mg PO Q8H PRN 12/18/18 [History] Rosuvastatin [Crestor] 10 mg PO BEDTIME 12/18/18 [History] Silver Sulfadiazine 1 applic TOP BID 12/18/18 [History] Tolterodine Tartrate [Detrol LA] 2 mg PO DAILY 12/18/18 [History] Topiramate [Topamax] 100 mg PO BEDTIME 12/18/18 [History] lamoTRIgine [LaMICtal] 150 mg PO BEDTIME 12/18/18 [History] lisinopriL [Lisinopril] 5 mg PO DAILY 12/18/18 [History] traMADol [Ultram] 50 mg PO Q6H PRN 12/18/18 [History] Zolpidem [Ambien] 10 mg PO BEDTIME PRN 30 Days #30 tab 12/24/18 [Rx] traZODone HCl [Trazodone HCl] 25 mg PO BEDTIME 30 Days #30 tablet 12/24/18 [Rx] Meclizine [Antivert] 25 mg PO Q6H PRN #30 tab 12/20/20 [Rx] Past Medical History HEENT History: Reports: Cataract, Impaired Vision, Other (See Below) Other HEENT History: vertigo Cardiovascular History: Reports: Afib, High Cholesterol, Hypertension Respiratory History: Reports: SOB Gastrointestinal History: Reports: Chronic Constipation, Other (See Below) Other Gastrointestinal History: cyclic retching Genitourinary History: Reports: UTI, Recurrent 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: Musculoskeletal History: Reports: Other (See Below) Other Musculoskeletal History: rt shoulder pain Neurological History: Reports: CVA, TIA, Other (See Below) Other Neuro History: CVA x 3, Guillian [place] Syndrome Psychiatric History: Reports: Anxiety, Depression Other Psychiatric History: insomnia Endocrine/Metabolic History: Reports: Diabetes, Type II Hematologic History: Reports: None Immunologic History: Reports: None Oncologic (Cancer) History: Reports: Squamous Cell Carcinoma Dermatologic History: Reports: Other (See Below) Other Dermatologic History: left ear and arm skin leison - Infectious Disease History Infectious Disease History: Reports: Chicken Pox, Measles, Shingles - Past Surgical History HEENT Surgical History: Reports: Cataract Surgery, Other (See Below) Other HEENT Surgeries/Procedures: cleft lip surgury GI Surgical History: Reports: Appendectomy, Johnathan Fundoplication Musculoskeletal Surgical History: Reports: Knee Replacement Social & Family History - Family History Family Medical History: No Pertinent Family History - Tobacco Use Tobacco Use Status *Q: Unknown Ever Used Tobacco - Caffeine Use Caffeine Use: Reports: None - Living Situation & Occupation Living situation: Reports: 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) ED ROS GENERAL - Review of Systems Review Of Systems: See Below Constitutional: Reports: No Symptoms HEENT: Reports: No Symptoms Respiratory: Reports: No Symptoms Cardiovascular: Reports: No Symptoms Endocrine: Reports: No Symptoms GI/Abdominal: Reports: No Symptoms : Reports: No Symptoms Musculoskeletal: Reports: No Symptoms Skin: Reports: No Symptoms Neurological: Reports: Dizziness, Syncope Psychiatric: Reports: No Symptoms ED EXAM, GENERAL - Physical Exam Exam: See Below Exam Limited By: No Limitations General Appearance: Alert, No Apparent Distress Eye Exam: Bilateral Eye: PERRL Ears: Normal External Exam, Normal Canal Nose: Normal Inspection, Normal Mucosa, No Blood Throat/Mouth: Normal Inspection, Normal Lips, Normal Teeth Head: Atraumatic, Normocephalic Neck: Normal Inspection, Supple, Non-Tender, Full Range of Motion Respiratory/Chest: No Respiratory Distress, Lungs Clear, Normal Breath Sounds Cardiovascular: Normal Peripheral Pulses, Regular Rate, Rhythm, No Edema, No Gallop, No JVD, No Murmur GI/Abdominal: Normal Bowel Sounds, Soft, Non-Tender, No Organomegaly Back Exam: Normal Inspection, Full Range of Motion Neurological: Alert, Oriented, CN II-XII Intact, Normal Cognition Psychiatric: Normal Affect #1 Interpretation EKG Date: 12/20/20 Time: 12:10 Rhythm: NSR Rate (Beats/Min): 67 [place]: Normal P-Wave: Present QRS: Normal ST-T: Normal QT: Normal TN/PQ Interval: 189 Comparison: No Change EKG Interpretation Comments: NSR LVH Course - Vital Signs Text/Narrative:: Lab/EKG/Head CT,Xray-lumbar,sacrum,coccyx result was reviewed and discussed with patient and her Meclizine 50 mg PO x1 PT consult was done for Leticia's Maneuver for BPV. Last Recorded V/S: Last Vital Signs Temp 36.6 C 12/20/20 10:52 Pulse 81 12/20/20 10:52 Resp 18 12/20/20 10:52 BP 165/72 H 12/20/20 10:52 Pulse Ox 97 12/20/20 10:52 - Orders/Labs/Meds Orders: Active Orders 24 hr Category Date Time Status EKG 12 Lead [EK] Routine Ther 12/20/20 11:49 Ordered Labs: Laboratory Tests 12/20/20 12/20/20 Range/Units 12:00 12:00 WBC 8.5 (3.0-10.3) x10-3/uL RBC 3.76 (3.60-5.20) x10(6)uL Hgb 12.5 (11.4-15.5) g/dL Hct 38.0 (34.2-48.2) % MCV 101.2 H (76.7-100.5) fL MCH 33.2 (23.9-33.9) pg MCHC 32.8 (31.9-34.8) g/dL RDW 12.5 (12.3-16.5) % Plt Count 263 (151-488) x10(3)uL MPV 7.6 (7.1-12.4) fL Neut % (Auto) 77.3 H (30.8-76.2) % Lymph % (Auto) 16.0 L (18.4-52.1) % [place] % (Auto) 6.6 (4.4-15.7) % Eos % (Auto) 0.0 L (0.6-8.1) % Baso % (Auto) 0.1 L (0.2-1.5) % Neut # (Auto) 6.6 H (1.5-6.3) x10-3/uL Lymph # (Auto) 1.4 (1.0-4.4) x10-3/uL [place] # (Auto) 0.6 (0.3-1.0) x10-3/uL Eos # (Auto) 0.0 (0.0-0.8) x10-3/uL Baso # (Auto) 0.0 (0.0-0.1) x10-3/uL Sodium 143 (135-145) mmol/L Potassium 4.4 (3.5-5.3) mmol/L Chloride 105 (100-110) mmol/L Carbon Dioxide 30 (21-32) mmol/L BUN 23 H (7-18) mg/dL Creatinine 1.0 (0.55-1.02) mg/dL Est Cr Clr Drug Dosing TNP Estimated GFR (MDRD) 53 L (>60) BUN/Creatinine Ratio 23.0 H (9-20) Glucose 143 H (80-116) mg/dL Calcium 9.4 (8.6-10.2) mg/dL Meds: Medications Discontinued Medications Generic Name Dose Route Start Last Admin Trade Name Freq PRN Reason Stop Dose Admin Meclizine HCl 50 mg 12/20/20 11:49 12/20/20 12:10 Meclizine 25 Mg Tab PO 12/20/20 11:50 50 mg ONETIME ONE Administration Departure - Departure Time of Disposition: 15:00 Disposition: Home, Self-Care 01 Condition: Good Clinical Impression: BPV (benign positional vertigo), Syncope, Contusion, Fall - Discharge Information Prescriptions: Meclizine [Antivert] 25 mg PO Q6H PRN #30 tab PRN Reason: vertigo Instructions: Vertigo, Kson-mu-Muxe, Contusion, Idtz-il-Lame, Syncope, Easy-to- Read Referrals: Cm Riggs MD [Primary Care Provider] - Forms: ED Department Discharge Additional Instructions: Please read discharge instructions on BPV(benign positional vertigo),syncope, contusion Take meclizine 25 mg every 6 hours for 3 days Follow up as needed Sepsis Event Note (ED) - Focused Exam Vital Signs: Vital Signs Temp Pulse Resp BP Pulse Ox 12/20/20 10:52 36.6 C 81 18 165/72 H 97 - My Orders Last 24 Hours: My Active Orders 12/20/20 11:49 EKG 12 Lead [EK] Routine - Assessment/Plan Last 24 Hours: My Active Orders 12/20/20 11:49 EKG 12 Lead [EK] Routine
== END 2020-12-20 14:44 | disposition home or self-care (01) ==
LOC: FB.ED 10:50
DX: S00.83XA Contusion of other part of head, initial encounter (principal); R55 Syncope and collapse; H81.10 Benign paroxysmal vertigo, unspecified ear; I48.91 Unspecified atrial fibrillation; E78.00 Pure hypercholesterolemia, unspecified; I10 Essential (primary) hypertension; E11.9 Type 2 diabetes mellitus without complications; Z88.5 Allergy status to narcotic agent; Z88.1 Allergy status to other antibiotic agents; Z88.8 Allergy status to other drugs, medicaments and biological substances; Z88.7 Allergy status to serum and vaccine; Z91.030 Bee allergy status; Z88.2 Allergy status to sulfonamides; Z91.012 Allergy to eggs; Z79.899 Other long term (current) drug therapy; W18.09XA Striking against other object with subsequent fall, initial encounter
CPT/HCPCS: 36415; 70450; 72100; 72220; 80048; 85025; 93005; 99284; A9270

== ENCOUNTER 2020-12-26 11:45 | Emergency (ER) | payer MEDICARE, BC ==
--- NOTE | 2020-12-26 12:38 | EDM.PDOC ---
ED HPI GENERAL MEDICAL PROBLEM - General Stated Complaint: Dizziness Time Seen by Provider: 12/26/20 11:45 Source of Information: Reports: Patient, Family History Limitations: Reports: No Limitations - History of Present Illness INITIAL COMMENTS - FREE TEXT/NARRATIVE: Patient presented to the ED because of vertigo which started Friday night and got worse Sat and Sun during her daughters wedding. She took meclizine without significant relief. She was seen in the ED last week due to BPV and Eppley's maneuver by PT did helped her a lot. She was then discharged to home with Meclizine. - Related Data Allergies Allergy/AdvReac Type Severity Reaction Status Date / Time bupropion [From Wellbutrin] Allergy Cannot Verified 05/27/20 14:05 Remember ciprofloxacin Allergy Cannot Verified 05/27/20 14:05 Remember codeine Allergy Hives Verified 05/27/20 14:05 cyclobenzaprine Allergy Cannot Verified 05/27/20 14:05 [Cyclobenzaprine] Remember diclofenac sodium Allergy Cannot Verified 05/27/20 14:05 [From Arthrotec 50] Remember feathers Allergy Cannot Verified 05/27/20 14:05 Remember flu vaccine ts (65 Allergy Cannot Verified 05/27/20 14:05 yr+) Remember [From Fluzone High-Dose (PF)] ibuprofen [From Motrin] Allergy Cannot Verified 05/27/20 14:05 Remember iodine Allergy Airway Verified 05/27/20 14:05 Tightness meperidine HCl [From Demerol] Allergy Cannot Verified 05/27/20 14:05 Remember misoprostol Allergy Cannot Verified 05/27/20 14:05 [From Arthrotec 50] Remember Penicillins Allergy Cannot Verified 05/27/20 14:05 Remember propoxyphene Allergy Cannot Verified 05/27/20 14:05 [From Darvocet-N] Remember pseudoephedrine HCl Allergy Cannot Verified 05/27/20 14:05 [From Advil Cold & Sinus] Remember shellfish derived Allergy Anaphylactic Verified 05/27/20 14:05 Shock Sulfa (Sulfonamide Allergy Hives Verified 05/27/20 14:05 Antibiotics) tetanus toxoid, adsorbed Allergy Cannot Verified 05/27/20 14:05 Remember venom-honey bee Allergy Anaphylactic Verified 05/27/20 14:05 Shock aspirin AdvReac STOMACH Verified 05/27/20 14:05 BLEEDING WITH TOO MUCH bupropion HCl AdvReac Cannot Verified 05/27/20 14:05 [From Wellbutrin] Remember celecoxib [From Celebrex] AdvReac Nausea and Verified 05/27/20 14:05 Vomiting clarithromycin AdvReac Diarrhea Verified 05/27/20 14:05 morphine AdvReac Hallucinati Verified 05/27/20 14:05 ons iodine-isopropyl Allergy Severe THROAT Uncoded 05/27/20 14:05 SWELLS SHUT EGGS Allergy Intermediate Difficulty Uncoded 05/27/20 14:05 Breathing Home Meds: Home Meds ClonazePAM [KlonoPIN] 1 mg PO BID 11/13/13 [History] Mirtazapine [Remeron] 30 mg PO BEDTIME 11/13/13 [History] Pantoprazole [ProTONIX] 80 mg PO DAILY 05/01/14 [History] Calcium Carb/Vitamin D3/Vit K1 [Viactiv Soft Chew] 1 tab PO DAILY 01/22/16 [History] Carboxymethylcellulos/Glycerin [Refresh Optive] 3 drop EYEBOTH DAILY 01/22/16 [History] Ketotifen [Ketotifen 0.025% Ophth Soln] 1 drop EYEBOTH TID 01/22/16 [History] Potassium Bicarbonate/Cit Ac [Effer-K] 25 meq PO DAILY 01/22/16 [History] cycloSPORINE [Restasis] 1 drop EYEBOTH BID 01/22/16 [History] Ondansetron 4 mg PO Q8H PRN 05/11/17 [History] tiZANidine [Zanaflex] 2 mg PO BID 03/20/18 [History] Acetaminophen [Tylenol Extra Strength] 500 mg PO Q6H PRN 12/18/18 [History] Acetaminophen/HYDROcodone [HYDROcodone-Acetaminophen 5-325 MG *] 1 tab PO Q6H PRN 12/18/18 [History] Cetirizine [ZyrTEC] 10 mg PO DAILY 12/18/18 [History] Docusate Sodium 100 mg PO DAILY 12/18/18 [History] EPINEPHrine [Epipen] 0.3 mg IM ONETIME PRN 12/18/18 [History] Eye Promise Ez Tears 2 cap PO DAILY 12/18/18 [History] Fluticasone Propionate [Flonase] 2 spray NASBOTH DAILY 12/18/18 [History] Gabapentin [Neurontin] 300 mg PO TID 12/18/18 [History] Lactobac No.30/Bifidobact No.4 [Ultimate [place] Probiotic Dr Cp] 1 cap PO DAILY 12/18/18 [History] Melatonin 30 mg PO BEDTIME 12/18/18 [History] Metoclopramide HCl [Reglan] 5 mg PO Q8H PRN 12/18/18 [History] Rosuvastatin [Crestor] 10 mg PO BEDTIME 12/18/18 [History] Silver Sulfadiazine 1 applic TOP BID 12/18/18 [History] Tolterodine Tartrate [Detrol LA] 2 mg PO DAILY 12/18/18 [History] Topiramate [Topamax] 100 mg PO BEDTIME 12/18/18 [History] lamoTRIgine [LaMICtal] 150 mg PO BEDTIME 12/18/18 [History] lisinopriL [Lisinopril] 5 mg PO DAILY 12/18/18 [History] traMADol [Ultram] 50 mg PO Q6H PRN 12/18/18 [History] Zolpidem [Ambien] 10 mg PO BEDTIME PRN 30 Days #30 tab 12/24/18 [Rx] traZODone HCl [Trazodone HCl] 25 mg PO BEDTIME 30 Days #30 tablet 12/24/18 [Rx] Meclizine [Antivert] 25 mg PO Q6H PRN #30 tab 12/20/20 [Rx] predniSONE [Prednisone] 20 mg PO DAILY #5 tablet 12/26/20 [Rx] Past Medical History HEENT History: Reports: Cataract, Impaired Vision, Other (See Below) Other HEENT History: vertigo Cardiovascular History: Reports: Afib, High Cholesterol, Hypertension Respiratory History: Reports: SOB Gastrointestinal History: Reports: Chronic Constipation, Other (See Below) Other Gastrointestinal History: cyclic retching Genitourinary History: Reports: UTI, Recurrent 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: Musculoskeletal History: Reports: Other (See Below) Other Musculoskeletal History: rt shoulder pain Neurological History: Reports: CVA, TIA, Vertigo, Other (See Below) Other Neuro History: CVA x 3, Guillian [place] Syndrome; Recurrent BPPV Psychiatric History: Reports: Anxiety, Depression Other Psychiatric History: insomnia Endocrine/Metabolic History: Reports: Diabetes, Type II Hematologic History: Reports: None Immunologic History: Reports: None Oncologic (Cancer) History: Reports: Squamous Cell Carcinoma Dermatologic History: Reports: Other (See Below) Other Dermatologic History: left ear and arm skin leison - Infectious Disease History Infectious Disease History: Reports: Chicken Pox, Measles, Shingles - Past Surgical History HEENT Surgical History: Reports: Cataract Surgery, Other (See Below) Other HEENT Surgeries/Procedures: cleft lip surgury GI Surgical History: Reports: Appendectomy, Johnathan Fundoplication Musculoskeletal Surgical History: Reports: Knee Replacement Other Musculoskeletal Surgeries/Procedures:: bilateral total knees Social & Family History - Family History Family Medical History: No Pertinent Family History - Caffeine Use Caffeine Use: Reports: None - Living Situation & Occupation Living situation: Reports: 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) ED ROS GENERAL - Review of Systems Review Of Systems: See Below Constitutional: Reports: No Symptoms HEENT: Reports: No Symptoms Respiratory: Reports: No Symptoms Cardiovascular: Reports: No Symptoms Endocrine: Reports: No Symptoms GI/Abdominal: Reports: No Symptoms : Reports: No Symptoms Musculoskeletal: Reports: No Symptoms Skin: Reports: No Symptoms Neurological: Reports: Dizziness Psychiatric: Reports: No Symptoms ED EXAM, NEURO - Physical Exam Exam: See Below Exam Limited By: No Limitations General Appearance: Alert, No Apparent Distress Eye Exam: Bilateral Eye: PERRL Ears: Normal External Exam, Normal Canal, Hearing Grossly Normal, Normal TMs Nose: Normal Inspection, Normal Mucosa, No Blood Throat/Mouth: Normal Inspection, Normal Lips, Normal Teeth, Normal Gums Head Exam: Atraumatic, Normocephalic Neck: Normal Inspection, Supple, Non-Tender, Full Range of Motion Respiratory/Chest: No Respiratory Distress, Lungs Clear, Normal Breath Sounds, No Accessory Muscle Use Cardiovascular: Normal Peripheral Pulses, Regular Rate, Rhythm, No Edema, No Gallop, No JVD, No Murmur GI/Abdominal: Normal Bowel Sounds, Soft, Non-Tender, No Organomegaly Neurological: Alert, Normal Mood/Affect, Normal Dorsiflexion Course - Vital Signs Text/Narrative:: Meclizine 25 mg PO x1 Prednisone 20 mg PO x1 Scopolamine patch x1 Last Recorded V/S: Last Vital Signs Temp 36.0 C L 12/26/20 11:45 Pulse 77 12/26/20 11:45 Resp 22 H 12/26/20 11:45 BP 191/88 H 12/26/20 11:45 Pulse Ox 96 12/26/20 11:45 - Orders/Labs/Meds Orders: Active Orders 24 hr Category Date Time Status Head wo Cont [CT] Stat Exams 12/26/20 11:52 Taken Scopolamine [Transderm-Scop] Med 12/26/20 12:42 Ordered 1.5 mg TRDERM Q72H PRN Departure - Departure Time of Disposition: 12:45 Disposition: Home, Self-Care 01 Condition: Good Clinical Impression: BPV (benign positional vertigo), Head injury - Discharge Information Prescriptions: predniSONE [Prednisone] 20 mg PO DAILY #5 tablet Instructions: Head Injury, Adult, [id number], Benign Positional Vertigo Additional Instructions: Please read discharge instructions on head injury and vertigo Meclizine 50 mg every 6 hours for 3 days Prednisone 20 mg daily for [address] Riggs so he can refer you to see the PT for treatment of your vertigo Sepsis Event Note (ED) - Focused Exam Vital Signs: Vital Signs Temp Pulse Resp BP Pulse Ox 12/26/20 11:45 36.0 C L 77 22 H 191/88 H 96 - My Orders Last 24 Hours: My Active Orders 12/26/20 11:52 Head wo Cont [CT] Stat 12/26/20 12:42 Scopolamine [Transderm-Scop] 1.5 mg TRDERM Q72H PRN - Assessment/Plan Last 24 Hours: My Active Orders 12/26/20 11:52 Head wo Cont [CT] Stat 12/26/20 12:42 Scopolamine [Transderm-Scop] 1.5 mg TRDERM Q72H PRN
[2020-12-26] MEDS ORDERED: Scopolamine 1.5 MG Transdermal Patch TRDERM PRN (12:42)
[2020-12-26] MEDS ORDERED: Scopolamine 1 MG Transdermal Patch TRDERM PRN (13:00)
--- NOTE | 2020-12-26 13:46 | CT ---
CT HEAD WITHOUT CONTRAST INDICATION: Fell, hit back of head, vertigo. Previous falls. TECHNIQUE: Spiral 3.75 mm axial sections were obtained through the brain without contrast with axial, sagittal and coronal reconstructions 12/26/20 and compared with 12/20/20. Total exam DLP was 1167.68 mGy/cm. FINDINGS: No significant findings noted in the paranasal sinuses with good aeration and only a very tiny retention cyst in the right maxillary antrum. Mastoid air cells were well aerated. No cranial abnormality was identified - no cranial fracture site was seen. No evidence of scalp hematoma was seen. No shift of midline structures or significant ventricular abnormalities for age were noted - slight prominence of the ventricles is compatible with patient's age and a mild degree of central atrophy. White matter changes in the periventricular areas are minimal as previously compatible with minimal microvascular disease. Calcifications are noted in the internal carotid arteries. No evidence of a focal area of bleeding/hemorrhage or hematoma was seen. No focal abnormal areas of density to suggest an acute intracranial abnormality were seen. The orbits appear to be intact. IMPRESSION: 1. Stable CT brain without evidence of an acute intracranial abnormality. 2. Mild microvascular disease type changes. 3. Relatively minimal central atrophy. The ER was called with notice of an available report at 1219 hours 12/26/20. [facility]
[2020-12-26 14:49] VITALS: BP 155/82; PULSE 78
== END 2020-12-26 13:23 | disposition home or self-care (01) ==
LOC: FB.ED 11:45
DX: S09.90XA Unspecified injury of head, initial encounter (principal); H81.10 Benign paroxysmal vertigo, unspecified ear; I48.91 Unspecified atrial fibrillation; E78.00 Pure hypercholesterolemia, unspecified; I10 Essential (primary) hypertension; E11.9 Type 2 diabetes mellitus without complications; Z88.8 Allergy status to other drugs, medicaments and biological substances; Z88.1 Allergy status to other antibiotic agents; Z88.5 Allergy status to narcotic agent; Z91.048 Other nonmedicinal substance allergy status; Z88.7 Allergy status to serum and vaccine; Z88.6 Allergy status to analgesic agent; Z88.0 Allergy status to penicillin; Z91.013 Allergy to seafood; Z88.2 Allergy status to sulfonamides; Z91.030 Bee allergy status; Z91.012 Allergy to eggs; Z79.899 Other long term (current) drug therapy; W18.30XA Fall on same level, unspecified, initial encounter; Y92.002 Bathroom of unspecified non-institutional (private) residence as the place of occurrence of the external cause
CPT/HCPCS: 70450; 99284-25; A9270-GY

== ENCOUNTER 2020-12-28 00:41 | Emergency (ER) | payer MEDICARE, BC ==
[2020-12-28 00:57] VITALS: BP 156/98; PULSE 68
[2020-12-28] MEDS ORDERED: hydrOXYzine HCl 50 MG/ML SDV IM ONE (01:24)
--- NOTE | 2020-12-28 01:29 | EDM.PDOC ---
ED HPI GENERAL MEDICAL PROBLEM - General Chief Complaint: Syncope Stated Complaint: FALL Time Seen by Provider: 12/28/20 01:24 Source of Information: Reports: Patient History Limitations: Reports: No Limitations - History of Present Illness INITIAL COMMENTS - FREE TEXT/NARRATIVE: Makenzie fell at home when she got up because her feeet were itchy.She experienced a vertiginous episode and does not remember what actually caused lacerations to the left forearm,left knee and leg. She denies hitting her head or neck. Feels anxious,but no other symptoms - Related Data Allergies Allergy/AdvReac Type Severity Reaction Status Date / Time bupropion [From Wellbutrin] Allergy Cannot Verified 05/27/20 14:05 Remember ciprofloxacin Allergy Cannot Verified 05/27/20 14:05 Remember codeine Allergy Hives Verified 05/27/20 14:05 cyclobenzaprine Allergy Cannot Verified 05/27/20 14:05 [Cyclobenzaprine] Remember diclofenac sodium Allergy Cannot Verified 05/27/20 14:05 [From Arthrotec 50] Remember feathers Allergy Cannot Verified 05/27/20 14:05 Remember flu vaccine ts (66 Allergy Cannot Verified 05/27/20 14:05 yr+) Remember [From Fluzone High-Dose (PF)] ibuprofen [From Motrin] Allergy Cannot Verified 05/27/20 14:05 Remember iodine Allergy Airway Verified 05/27/20 14:05 Tightness meperidine HCl [From Demerol] Allergy Cannot Verified 05/27/20 14:05 Remember misoprostol Allergy Cannot Verified 05/27/20 14:05 [From Arthrotec 50] Remember Penicillins Allergy Cannot Verified 05/27/20 14:05 Remember propoxyphene Allergy Cannot Verified 05/27/20 14:05 [From Darvocet-N] Remember pseudoephedrine HCl Allergy Cannot Verified 05/27/20 14:05 [From Advil Cold & Sinus] Remember shellfish derived Allergy Anaphylactic Verified 05/27/20 14:05 Shock Sulfa (Sulfonamide Allergy Hives Verified 05/27/20 14:05 Antibiotics) tetanus toxoid, adsorbed Allergy Cannot Verified 05/27/20 14:05 Remember venom-honey bee Allergy Anaphylactic Verified 05/27/20 14:05 Shock aspirin AdvReac STOMACH Verified 05/27/20 14:05 BLEEDING WITH TOO MUCH bupropion HCl AdvReac Cannot Verified 05/27/20 14:05 [From Wellbutrin] Remember celecoxib [From Celebrex] AdvReac Nausea and Verified 05/27/20 14:05 Vomiting clarithromycin AdvReac Diarrhea Verified 05/27/20 14:05 morphine AdvReac Hallucinati Verified 05/27/20 14:05 ons iodine-isopropyl Allergy Severe THROAT Uncoded 05/27/20 14:05 SWELLS SHUT EGGS Allergy Intermediate Difficulty Uncoded 05/27/20 14:05 Breathing Home Meds: Home Meds ClonazePAM [KlonoPIN] 1 mg PO BID 11/13/13 [History] Mirtazapine [Remeron] 30 mg PO BEDTIME 11/13/13 [History] Pantoprazole [ProTONIX] 80 mg PO DAILY 05/01/14 [History] Calcium Carb/Vitamin D3/Vit K1 [Viactiv Soft Chew] 1 tab PO DAILY 01/22/16 [History] Carboxymethylcellulos/Glycerin [Refresh Optive] 3 drop EYEBOTH DAILY 01/22/16 [History] Ketotifen [Ketotifen 0.025% Ophth Soln] 1 drop EYEBOTH TID 01/22/16 [History] Potassium Bicarbonate/Cit Ac [Effer-K] 25 meq PO DAILY 01/22/16 [History] cycloSPORINE [Restasis] 1 drop EYEBOTH BID 01/22/16 [History] Ondansetron 4 mg PO Q8H PRN 05/11/17 [History] tiZANidine [Zanaflex] 2 mg PO BID 03/20/18 [History] Acetaminophen [Tylenol Extra Strength] 500 mg PO Q6H PRN 12/18/18 [History] Acetaminophen/HYDROcodone [HYDROcodone-Acetaminophen 5-325 MG *] 1 tab PO Q6H P RN 12/18/18 [History] Cetirizine [ZyrTEC] 10 mg PO DAILY 12/18/18 [History] Docusate Sodium 100 mg PO DAILY 12/18/18 [History] EPINEPHrine [Epipen] 0.3 mg IM ONETIME PRN 12/18/18 [History] Eye Promise Ez Tears 2 cap PO DAILY 12/18/18 [History] Fluticasone Propionate [Flonase] 2 spray NASBOTH DAILY 12/18/18 [History] Gabapentin [Neurontin] 300 mg PO TID 12/18/18 [History] Lactobac No.30/Bifidobact No.4 [Ultimate [place] Probiotic Dr Cp] 1 cap PO DAILY 12/18/18 [History] Melatonin 30 mg PO BEDTIME 12/18/18 [History] Metoclopramide HCl [Reglan] 5 mg PO Q8H PRN 12/18/18 [History] Rosuvastatin [Crestor] 10 mg PO BEDTIME 12/18/18 [History] Silver Sulfadiazine 1 applic TOP BID 12/18/18 [History] Tolterodine Tartrate [Detrol LA] 2 mg PO DAILY 12/18/18 [History] Topiramate [Topamax] 100 mg PO BEDTIME 12/18/18 [History] lamoTRIgine [LaMICtal] 150 mg PO BEDTIME 12/18/18 [History] lisinopriL [Lisinopril] 5 mg PO DAILY 12/18/18 [History] traMADol [Ultram] 50 mg PO Q6H PRN 12/18/18 [History] Zolpidem [Ambien] 10 mg PO BEDTIME PRN 30 Days #30 tab 12/24/18 [Rx] traZODone HCl [Trazodone HCl] 25 mg PO BEDTIME 30 Days #30 tablet 12/24/18 [Rx] Meclizine [Antivert] 25 mg PO Q6H PRN #30 tab 12/20/20 [Rx] predniSONE [Prednisone] 20 mg PO DAILY #5 tablet 12/26/20 [Rx] Past Medical History HEENT History: Reports: Cataract, Impaired Vision, Other (See Below) Other HEENT History: vertigo Cardiovascular History: Reports: Afib, High Cholesterol, Hypertension, Syncope Respiratory History: Reports: SOB Gastrointestinal History: Reports: Chronic Constipation, Other (See Below) Other Gastrointestinal History: cyclic retching Genitourinary History: Reports: UTI, Recurrent 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: Musculoskeletal History: Reports: Fibromyalgia, Other (See Below) Other Musculoskeletal History: rt shoulder pain Neurological History: Reports: CVA, TIA, Vertigo, Other (See Below) Other Neuro History: CVA x 3, Guillian [place] Syndrome; Recurrent BPPV Psychiatric History: Reports: Anxiety, Depression Other Psychiatric History: insomnia Endocrine/Metabolic History: Reports: Diabetes, Type II Hematologic History: Reports: None Immunologic History: Reports: None Oncologic (Cancer) History: Reports: Squamous Cell Carcinoma Dermatologic History: Reports: Other (See Below) Other Dermatologic History: left ear and arm skin leison - Infectious Disease History Infectious Disease History: Reports: Chicken Pox, Measles, Shingles - Past Surgical History HEENT Surgical History: Reports: Cataract Surgery, Other (See Below) Other HEENT Surgeries/Procedures: cleft lip surgury GI Surgical History: Reports: Appendectomy, Johnathan Fundoplication Musculoskeletal Surgical History: Reports: Knee Replacement Other Musculoskeletal Surgeries/Procedures:: bilateral total knees Social & Family History - Family History Family Medical History: No Pertinent Family History - Caffeine Use Caffeine Use: Reports: None - Living Situation & Occupation Living situation: Reports: 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 ED EXAM, DIZZINESS - Physical Exam Exam: See Below Exam Limited By: No Limitations General Appearance: Alert, WD/WN Respiratory/Chest: No Respiratory Distress Cardiovascular: Normal Peripheral Pulses Neurological: Alert Skin Exam: Warm, Wound/Incision (3 wounds,lft bebe,left forearm,and left leg.) Course - Vital Signs Last Recorded V/S: Last Vital Signs Temp 97.2 F 12/28/20 00:53 Pulse 68 12/28/20 00:53 Resp 20 12/28/20 00:53 BP 156/98 H 12/28/20 00:53 Pulse Ox 96 12/28/20 00:53 - Orders/Labs/Meds Meds: Medications Discontinued Medications Generic Name Dose Route Start Last Admin Trade Name Gioq PRN Reason Stop Dose Admin Hydroxyzine HCl 50 mg 12/28/20 01:24 12/28/20 01:28 Hydroxyzine Hcl 50 Mg/Ml Sdv IM 12/28/20 01:25 50 mg ONETIME ONE Administration Departure - Departure Time of Disposition: 01:27 Disposition: DC/Tfer to Acute Hospital 02 Condition: Good Clinical Impression: BPV (benign positional vertigo) Qualifiers: Laterality: left Qualified Code(s): H81.12 - Benign paroxysmal vertigo, left ear - Discharge Information Referrals: Cm Riggs MD [Primary Care Provider] - Forms: ED Department Discharge Sepsis Event Note (ED) - Evaluation Sepsis Screening Result: No Definite Risk - Focused Exam Vital Signs: Vital Signs Temp Pulse Resp BP Pulse Ox 12/28/20 00:53 97.2 F 68 20 156/98 H 96 - Problem List & Annotations (1) Laceration of leg excluding thigh SNOMED Code(s): 610596601 Code(s): S81.819A - LACERATION WITHOUT FOREIGN BODY, UNSP LOWER LEG, INIT ENCNTR Status: Acute Current Visit: Yes Qualifiers: Encounter type: initial encounter (2) Laceration of knee with complication SNOMED Code(s): 38490997, 880139961 Code(s): S81.019A - LACERATION WITHOUT FOREIGN BODY, UNSP KNEE, INIT ENCNTR Status: Acute Current Visit: Yes (3) BPV (benign positional vertigo) SNOMED Code(s): 403546331 Code(s): H81.10 - BENIGN PAROXYSMAL VERTIGO, UNSPECIFIED EAR Status: Acute Current Visit: Yes Qualifiers: Laterality: left Qualified Code(s): H81.12 - Benign paroxysmal vertigo, left ear (4) Anxiety SNOMED Code(s): 36986814 Code(s): F41.9 - ANXIETY DISORDER, UNSPECIFIED Status: Chronic Current Visit: No Annotation/Comment:: Continue Home medications. - Problem List Review Problem List Initiated/Reviewed/Updated: Yes - Assessment/Plan Plan: Patient is quite anxious sand would like sedation. I will send her to ED in [place]. Vistaril 50 mg IM given
== END 2020-12-28 02:54 ==
LOC: FB.ED 00:41
DX: H81.12 Benign paroxysmal vertigo, left ear (principal); S81.002A Unspecified open wound, left knee, initial encounter; S51.802A Unspecified open wound of left forearm, initial encounter; I48.91 Unspecified atrial fibrillation; E78.00 Pure hypercholesterolemia, unspecified; I10 Essential (primary) hypertension; E11.9 Type 2 diabetes mellitus without complications; Z86.73 Personal history of transient ischemic attack (TIA), and cerebral infarction without residual deficits; Z88.5 Allergy status to narcotic agent; Z88.7 Allergy status to serum and vaccine; Z88.2 Allergy status to sulfonamides; Z88.0 Allergy status to penicillin; Z88.8 Allergy status to other drugs, medicaments and biological substances; Z91.012 Allergy to eggs; Z88.1 Allergy status to other antibiotic agents; Z79.899 Other long term (current) drug therapy; Z79.82 Long term (current) use of aspirin; W18.39XA Other fall on same level, initial encounter; Y92.009 Unspecified place in unspecified non-institutional (private) residence as the place of occurrence of the external cause
CPT/HCPCS: 96372; 99285; J3410

== ENCOUNTER 2021-02-10 15:28 | Emergency (ER) | payer MEDICARE, BC ==
--- NOTE | 2021-02-10 15:44 | EDM.PDOC ---
ED HPI GENERAL MEDICAL PROBLEM - General Stated Complaint: GENERAL Time Seen by Provider: 02/10/21 15:39 Source of Information: Reports: Patient History Limitations: Reports: No Limitations - History of Present Illness INITIAL COMMENTS - FREE TEXT/NARRATIVE: Makenzie hit the right veras yesterday accidentally by cutter.She has noted a swelling ,but minimal tenderness on bearing weight. - Related Data Allergies Allergy/AdvReac Type Severity Reaction Status Date / Time bupropion [From Wellbutrin] Allergy Cannot Verified 05/27/20 14:05 Remember ciprofloxacin Allergy Cannot Verified 05/27/20 14:05 Remember codeine Allergy Hives Verified 05/27/20 14:05 cyclobenzaprine Allergy Cannot Verified 05/27/20 14:05 [Cyclobenzaprine] Remember diclofenac sodium Allergy Cannot Verified 05/27/20 14:05 [From Arthrotec 50] Remember feathers Allergy Cannot Verified 05/27/20 14:05 Remember flu vaccine ts (66 Allergy Cannot Verified 05/27/20 14:05 yr+) Remember [From Fluzone High-Dose (PF)] ibuprofen [From Motrin] Allergy Cannot Verified 05/27/20 14:05 Remember iodine Allergy Airway Verified 05/27/20 14:05 Tightness meperidine HCl [From Demerol] Allergy Cannot Verified 05/27/20 14:05 Remember misoprostol Allergy Cannot Verified 05/27/20 14:05 [From Arthrotec 50] Remember Penicillins Allergy Cannot Verified 05/27/20 14:05 Remember propoxyphene Allergy Cannot Verified 05/27/20 14:05 [From Darvocet-N] Remember pseudoephedrine HCl Allergy Cannot Verified 05/27/20 14:05 [From Advil Cold & Sinus] Remember shellfish derived Allergy Anaphylactic Verified 05/27/20 14:05 Shock Sulfa (Sulfonamide Allergy Hives Verified 05/27/20 14:05 Antibiotics) tetanus toxoid, adsorbed Allergy Cannot Verified 05/27/20 14:05 Remember venom-honey bee Allergy Anaphylactic Verified 05/27/20 14:05 Shock aspirin AdvReac STOMACH Verified 05/27/20 14:05 BLEEDING WITH TOO MUCH bupropion HCl AdvReac Cannot Verified 05/27/20 14:05 [From Wellbutrin] Remember celecoxib [From Celebrex] AdvReac Nausea and Verified 05/27/20 14:05 Vomiting clarithromycin AdvReac Diarrhea Verified 05/27/20 14:05 morphine AdvReac Hallucinati Verified 05/27/20 14:05 ons iodine-isopropyl Allergy Severe THROAT Uncoded 05/27/20 14:05 SWELLS SHUT EGGS Allergy Intermediate Difficulty Uncoded 05/27/20 14:05 Breathing Home Meds: Home Meds ClonazePAM [KlonoPIN] 1 mg PO BID 11/13/13 [History] Mirtazapine [Remeron] 30 mg PO BEDTIME 11/13/13 [History] Pantoprazole [ProTONIX] 80 mg PO DAILY 05/01/14 [History] Calcium Carb/Vitamin D3/Vit K1 [Viactiv Soft Chew] 1 tab PO DAILY 01/22/16 [History] Carboxymethylcellulos/Glycerin [Refresh Optive] 3 drop EYEBOTH DAILY 01/22/16 [History] Ketotifen [Ketotifen 0.025% Ophth Soln] 1 drop EYEBOTH TID 01/22/16 [History] Potassium Bicarbonate/Cit Ac [Effer-K] 25 meq PO DAILY 01/22/16 [History] cycloSPORINE [Restasis] 1 drop EYEBOTH BID 01/22/16 [History] Ondansetron 4 mg PO Q8H PRN 05/11/17 [History] tiZANidine [Zanaflex] 2 mg PO BID 03/20/18 [History] Acetaminophen [Tylenol Extra Strength] 500 mg PO Q6H PRN 12/18/18 [History] Acetaminophen/HYDROcodone [HYDROcodone-Acetaminophen 5-325 MG *] 1 tab PO Q6H PRN 12/18/18 [History] Cetirizine [ZyrTEC] 10 mg PO DAILY 12/18/18 [History] Docusate Sodium 100 mg PO DAILY 12/18/18 [History] EPINEPHrine [Epipen] 0.3 mg IM ONETIME PRN 12/18/18 [History] Eye Promise Ez Tears 2 cap PO DAILY 12/18/18 [History] Fluticasone Propionate [Flonase] 2 spray NASBOTH DAILY 12/18/18 [History] Gabapentin [Neurontin] 300 mg PO TID 12/18/18 [History] Lactobac No.30/Bifidobact No.4 [Ultimate [place] Probiotic Dr Cp] 1 cap PO DAILY 12/18/18 [History] Melatonin 30 mg PO BEDTIME 12/18/18 [History] Metoclopramide HCl [Reglan] 5 mg PO Q8H PRN 12/18/18 [History] Rosuvastatin [Crestor] 10 mg PO BEDTIME 12/18/18 [History] Silver Sulfadiazine 1 applic TOP BID 12/18/18 [History] Tolterodine Tartrate [Detrol LA] 2 mg PO DAILY 12/18/18 [History] Topiramate [Topamax] 100 mg PO BEDTIME 12/18/18 [History] lamoTRIgine [LaMICtal] 150 mg PO BEDTIME 12/18/18 [History] lisinopriL [Lisinopril] 5 mg PO DAILY 12/18/18 [History] traMADol [Ultram] 50 mg PO Q6H PRN 12/18/18 [History] Zolpidem [Ambien] 10 mg PO BEDTIME PRN 30 Days #30 tab 12/24/18 [Rx] traZODone HCl [Trazodone HCl] 25 mg PO BEDTIME 30 Days #30 tablet 12/24/18 [Rx] Meclizine [Antivert] 25 mg PO Q6H PRN #30 tab 12/20/20 [Rx] predniSONE [Prednisone] 20 mg PO DAILY #5 tablet 12/26/20 [Rx] Past Medical History HEENT History: Reports: Cataract, Impaired Vision, Other (See Below) Other HEENT History: vertigo Cardiovascular History: Reports: Afib, High Cholesterol, Hypertension, Syncope Respiratory History: Reports: SOB Gastrointestinal History: Reports: Chronic Constipation, Other (See Below) Other Gastrointestinal History: cyclic retching Genitourinary History: Reports: UTI, Recurrent [employer] 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: Musculoskeletal History: Reports: Fibromyalgia, Other (See Below) Other Musculoskeletal History: rt shoulder pain Neurological History: Reports: CVA, TIA, Vertigo, Other (See Below) Other Neuro History: CVA x 3, Guillian [place] Syndrome; Recurrent BPPV Psychiatric History: Reports: Anxiety, Depression Other Psychiatric History: insomnia Endocrine/Metabolic History: Reports: Diabetes, Type II Hematologic History: Reports: None Immunologic History: Reports: None Oncologic (Cancer) History: Reports: Squamous Cell Carcinoma Dermatologic History: Reports: Other (See Below) Other Dermatologic History: left ear and arm skin leison - Infectious Disease History Infectious Disease History: Reports: Chicken Pox, Measles, Shingles - Past Surgical History HEENT Surgical History: Reports: Cataract Surgery, Other (See Below) Other HEENT Surgeries/Procedures: cleft lip surgury GI Surgical History: Reports: Appendectomy, Johnathan Fundoplication Musculoskeletal Surgical History: Reports: Knee Replacement Other Musculoskeletal Surgeries/Procedures:: bilateral total knees Social & Family History - Family History Family Medical History: No Pertinent Family History - Caffeine Use Caffeine Use: Reports: None - Living Situation & Occupation Living situation: Reports: 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 ED EXAM, GENERAL - Physical Exam Exam: See Below Exam Limited By: No Limitations General Appearance: Alert, WD/WN Extremities: Mottled, Redness, Other (area 10/10 cm of ecchymotic area. ) Neurological: Alert Departure - Departure Time of Disposition: 15:44 Disposition: Home, Self-Care 01 Condition: Good Clinical Impression: Leg injury - Discharge Information - Problem List & Annotations (1) Leg injury SNOMED Code(s): 810803873 Code(s): S89.90XA - UNSPECIFIED INJURY OF UNSPECIFIED LOWER LEG, INIT ENCNTR Status: Acute Qualifiers: Encounter type: initial encounter Laterality: right Qualified Code(s): S89.91XA - Unspecified injury of right lower leg, initial encounter - Problem List Review Problem List Initiated/Reviewed/Updated: Yes - Assessment/Plan Plan: Reassurance. Local wound care AFTER it opens up. [facility]
[2021-02-10 20:32] VITALS: BP 150/70; PULSE 85
== END 2021-02-10 15:55 | disposition home or self-care (01) ==
LOC: FB.ED 15:28
DX: S89.91XA Unspecified injury of right lower leg, initial encounter (principal); E78.00 Pure hypercholesterolemia, unspecified; I10 Essential (primary) hypertension; E11.9 Type 2 diabetes mellitus without complications; Z86.73 Personal history of transient ischemic attack (TIA), and cerebral infarction without residual deficits; Z88.1 Allergy status to other antibiotic agents; Z88.5 Allergy status to narcotic agent; Z88.8 Allergy status to other drugs, medicaments and biological substances; Z88.7 Allergy status to serum and vaccine; Z88.0 Allergy status to penicillin; Z88.2 Allergy status to sulfonamides; Z91.013 Allergy to seafood; Z91.030 Bee allergy status; Z91.012 Allergy to eggs; Z79.899 Other long term (current) drug therapy; W22.09XA Striking against other stationary object, initial encounter
CPT/HCPCS: 99283

== ENCOUNTER 2021-05-15 18:57 | Emergency (ER) | payer BC, MEDICARE ==
[2021-05-15] MEDS ORDERED: Ondansetron 4 MG Tab.DIS PO ONE (18:58)
[2021-05-15 19:29] VITALS: BP 130/56; PULSE 83
[2021-05-15 20:28] LABS: CORONAVIRUS COVID-19 NAA NEGATIVE (NEGATIVE)
[2021-05-15] MEDS ORDERED: Ondansetron 4 MG Tab.DIS PO STA (20:48)
== END 2021-05-15 21:04 | disposition home or self-care (01) ==
LOC: FB.ED 18:57
DX: J06.9 Acute upper respiratory infection, unspecified (principal); K58.0 Irritable bowel syndrome with diarrhea; I48.91 Unspecified atrial fibrillation; E78.00 Pure hypercholesterolemia, unspecified; I10 Essential (primary) hypertension; E11.9 Type 2 diabetes mellitus without complications; Z87.891 Personal history of nicotine dependence; Z88.1 Allergy status to other antibiotic agents; Z88.5 Allergy status to narcotic agent; Z88.8 Allergy status to other drugs, medicaments and biological substances; Z88.7 Allergy status to serum and vaccine; Z91.041 Radiographic dye allergy status; Z88.0 Allergy status to penicillin; Z91.013 Allergy to seafood; Z88.2 Allergy status to sulfonamides; Z91.030 Bee allergy status; Z91.012 Allergy to eggs; Z79.899 Other long term (current) drug therapy; Z86.73 Personal history of transient ischemic attack (TIA), and cerebral infarction without residual deficits; Z20.822 Contact with and (suspected) exposure to COVID-19
CPT/HCPCS: 0240U; 99284; Q0162

== ENCOUNTER 2022-01-21 15:47 | Observation (INO) | payer MEDICARE, OTHER ==
[2022-01-21] MEDS ORDERED: Lidocaine 1% 20 ML MDV INFILT ONE ×2 (15:49)
[2022-01-21] MEDS ORDERED: fentaNYL 100 MCG/2 ML SDV IVPUSH ONE ×2 (16:57→21:46)
[2022-01-21] MEDS ORDERED: Sodium Chloride 0.9% 1,000 ML IV SCH (17:00)
[2022-01-21 17:26] LABS: ESTIMATED GFR 57 mL/min (>60)
[2022-01-21] MEDS ORDERED: 50% Dextrose in Water 50 ML Syringe IVPUSH ONE (18:30)
[2022-01-21] MEDS ORDERED: ceFAZolin 1 GM Vial IVPUSH ONE (18:34)
[2022-01-22] MEDS ORDERED: traMADol 50 MG Tab ONE ×2 (00:59→08:11)
[2022-01-22] MEDS ORDERED: Ondansetron 4 MG Tab.DIS ONE (02:39)
[2022-01-22 07:07] LABS: ESTIMATED GFR 87 mL/min (>60)
[2022-01-22] MEDS ORDERED: Ondansetron 4 MG/2 ML SDV ONE (10:58)
[2022-01-22] MEDS ORDERED: Acetaminophen 500 MG Tab PO PRN (15:00)
[2022-01-22] MEDS ORDERED: Ondansetron 4 MG/2 ML SDV IVPUSH PRN (15:00)
[2022-01-22] MEDS ORDERED: Sodium Chloride 0.9% 1,000 ML IV SCH (15:00)
[2022-01-22] MEDS ORDERED: ClonazePAM 0.5 MG Tab PO PRN (15:00)
[2022-01-22] MEDS: ceFAZolin 1 GM Vial IVPUSH SCH (16:11)
[2022-01-22] MEDS: traMADol 50 MG Tab PO PRN (17:41)
[2022-01-22] MEDS: Acetaminophen 650 MG Tab.ER *PTOM PO SCH (17:44)
[2022-01-22] MEDS ORDERED: [UNRECOGNIZED DRUG - OTHER] PO SCH (21:00)
[2022-01-22] MEDS ORDERED: Mirtazapine 30 MG Tab *PTOM PO SCH (21:00)
[2022-01-22] MEDS ORDERED: Rosuvastatin 10 MG Tab *PTOM PO SCH (21:00)
[2022-01-22] MEDS ORDERED: rOPINIRole 0.5 MG Tab *PTOM PO SCH (21:00)
[2022-01-22] MEDS ORDERED: Gabapentin 300 MG Cap *PTOM PO SCH (21:00)
[2022-01-22] MEDS: Gabapentin 600 MG Tab *PTOM PO SCH (21:39)
[2022-01-23] MEDS: ceFAZolin 1 GM Vial IVPUSH SCH ×2 (00:19→08:13)
[2022-01-23] MEDS: traMADol 50 MG Tab PO PRN ×2 (00:42→06:32)
[2022-01-23] MEDS ORDERED: Sodium Chloride 0.9% 10 ML Syringe FLUSH PRN (06:35)
[2022-01-23 06:45] LABS: ESTIMATED GFR 74 mL/min (>60)
[2022-01-23] MEDS ORDERED: ceFAZolin 1 GM Vial IV ONE (08:00)
[2022-01-23] MEDS: Gabapentin 600 MG Tab *PTOM PO SCH ×2 (08:12→11:06)
[2022-01-23] MEDS: Acetaminophen 650 MG Tab.ER *PTOM PO SCH ×2 (08:12→11:06)
[2022-01-23] MEDS ORDERED: Pantoprazole 20 MG Tab, Delayed Release *PTOM PO SCH (09:00)
[2022-01-23] MEDS ORDERED: Potassium Chloride 20 MEQ Tab.ER *PTOM PO SCH (09:00)
[2022-01-23 09:58] VITALS: BP 156/89; PULSE 70
== END 2022-01-23 13:00 | disposition home or self-care (01) ==
LOC: FB.ED 15:47 → FB.MS 15:48 → FB.ED 22:30
PROVIDERS: ADMIT Family Medicine; ATTEND Family Medicine
DX: S09.90XA Unspecified injury of head, initial encounter (principal); S20.211A Contusion of right front wall of thorax, initial encounter; S62.616A Displaced fracture of proximal phalanx of right little finger, initial encounter for closed fracture; S80.02XA Contusion of left knee, initial encounter; S61.442A Puncture wound with foreign body of left hand, initial encounter; I10 Essential (primary) hypertension; E78.00 Pure hypercholesterolemia, unspecified; I48.91 Unspecified atrial fibrillation; F41.9 Anxiety disorder, unspecified; F32.A Depression, unspecified; G47.00 Insomnia, unspecified; E16.2 Hypoglycemia, unspecified; Z96.653 Presence of artificial knee joint, bilateral; Z98.890 Other specified postprocedural states; Z90.49 Acquired absence of other specified parts of digestive tract; Z79.899 Other long term (current) drug therapy; Z88.8 Allergy status to other drugs, medicaments and biological substances; Z88.1 Allergy status to other antibiotic agents; Z88.5 Allergy status to narcotic agent; Z88.2 Allergy status to sulfonamides; Z88.6 Allergy status to analgesic agent; Z91.030 Bee allergy status; W19.XXXA Unspecified fall, initial encounter
CPT/HCPCS: 10120; 26725; 36415; 70450; 71250; 72125; 73130-50; 73130-LT; 73130-RT; 73562-LT; 74176; 80048; 80053; 81001; 82947; 83735; 85025; 96361; 96374; 96375; 96376; 97161-GP; 97165-GO; 97760-GO; 99217; 99219; 99285-25; A9270-GY; G0378; J0690; J1642; J2405; J3010; J7030; Q0162

== ENCOUNTER 2022-04-08 10:05 | Emergency (ER) | payer MEDICARE, OTHER ==
[2022-04-08] MEDS ORDERED: methylPREDNISolone Sodium Succinate 125 MG/2 ML SDV IM ONE (10:33)
[2022-04-08] MEDS ORDERED: Albuterol/Ipratropium 3.0-0.5 MG/3 ML Neb Soln NEB ONE (10:33)
[2022-04-08] MEDS ORDERED: Sodium Chloride 0.9% 10 ML Syringe FLUSH PRN (10:43)
[2022-04-08] MEDS ORDERED: hydrOXYzine HCl 50 MG/ML SDV IM ONE (10:43)
[2022-04-08] MEDS ORDERED: Sodium Chloride 0.9% 1,000 ML IV SCH ×2 (10:45→12:15)
[2022-04-08] MEDS ORDERED: diphenhydrAMINE 50 MG/ML SDV IVPUSH STA (11:38)
[2022-04-08 11:39] LABS: ESTIMATED GFR 74 mL/min (>60)
[2022-04-08 12:04] LABS: CORONAVIRUS COVID-19 NAA NEGATIVE (NEGATIVE)
[2022-04-08] MEDS ORDERED: LORazepam 2 MG/ML SDV IVPUSH STA (12:05)
[2022-04-08] MEDS ORDERED: Acetaminophen 500 MG Tab PO ONE (13:46)
[2022-04-08] MEDS ORDERED: traMADol 50 MG Tab PO ONE (13:46)
[2022-04-08 14:39] VITALS: BP 150/81; PULSE 81
== END 2022-04-08 15:50 | disposition home or self-care (01) ==
LOC: FB.ED 10:05
DX: E86.0 Dehydration (principal); K52.9 Noninfective gastroenteritis and colitis, unspecified; I48.91 Unspecified atrial fibrillation; E78.00 Pure hypercholesterolemia, unspecified; I10 Essential (primary) hypertension; E11.9 Type 2 diabetes mellitus without complications; Z88.8 Allergy status to other drugs, medicaments and biological substances; Z88.6 Allergy status to analgesic agent; Z88.5 Allergy status to narcotic agent; Z91.013 Allergy to seafood; Z88.1 Allergy status to other antibiotic agents; Z88.2 Allergy status to sulfonamides; Z88.7 Allergy status to serum and vaccine; Z91.030 Bee allergy status; Z91.048 Other nonmedicinal substance allergy status; Z91.012 Allergy to eggs; Z79.899 Other long term (current) drug therapy; Z20.822 Contact with and (suspected) exposure to COVID-19
CPT/HCPCS: 0240U; 36415; 80048; 81001; 85025; 96361; 96372; 96374; 96375; 99284; A9270; J1200; J1642; J2060; J3410; J3490; J7030

== ENCOUNTER 2022-04-20 10:01 | Emergency (ER) | payer MEDICARE ==
[2022-04-20] MEDS ORDERED: methylPREDNISolone Sodium Succinate 125 MG/2 ML SDV IVPUSH ONE (10:23)
[2022-04-20] MEDS ORDERED: diphenhydrAMINE 50 MG/ML SDV IVPUSH ONE (10:24)
[2022-04-20] MEDS ORDERED: Heparin Sodium 10 Units/ML 5 ML Syringe FLUSH PRN (10:25)
[2022-04-20] MEDS ORDERED: Ondansetron 4 MG/2 ML SDV IVPUSH ONE (10:45)
[2022-04-20 10:58] LABS: ESTIMATED GFR 57 mL/min (>60)
[2022-04-20 13:26] VITALS: BP 139/84; PULSE 66
== END 2022-04-20 12:10 | disposition home or self-care (01) ==
LOC: FB.ED 10:01
DX: L29.9 Pruritus, unspecified (principal); F45.9 Somatoform disorder, unspecified; F41.9 Anxiety disorder, unspecified; E87.6 Hypokalemia; I48.91 Unspecified atrial fibrillation; E78.00 Pure hypercholesterolemia, unspecified; I10 Essential (primary) hypertension; E11.9 Type 2 diabetes mellitus without complications; Z86.73 Personal history of transient ischemic attack (TIA), and cerebral infarction without residual deficits; Z88.1 Allergy status to other antibiotic agents; Z88.8 Allergy status to other drugs, medicaments and biological substances; Z88.5 Allergy status to narcotic agent; Z91.012 Allergy to eggs; Z91.041 Radiographic dye allergy status; Z88.7 Allergy status to serum and vaccine; Z88.0 Allergy status to penicillin; Z88.2 Allergy status to sulfonamides; Z91.013 Allergy to seafood; Z91.030 Bee allergy status; Z91.048 Other nonmedicinal substance allergy status
CPT/HCPCS: 36415; 80053; 85025; 86140; 96374; 96375; 99283; J1200; J1642; J2405; J2930

== ENCOUNTER 2022-04-24 14:45 | Emergency (ER) | payer MEDICARE ==
[2022-04-24] MEDS ORDERED: methylPREDNISolone Sodium Succinate 125 MG/2 ML SDV IM ONE (15:01)
[2022-04-24] MEDS ORDERED: diphenhydrAMINE 50 MG/ML SDV IM STA (15:02)
[2022-04-24 15:04] VITALS: BP 126/96; PULSE 68
[2022-04-24] MEDS ORDERED: methylPREDNISolone Sodium Succinate 125 MG/2 ML SDV IVPUSH ONE (15:09)
[2022-04-24] MEDS ORDERED: diphenhydrAMINE 50 MG/ML SDV IVPUSH STA (15:09)
[2022-04-24] MEDS ORDERED: LORazepam 1 MG Tab PO ONE (15:27)
[2022-04-24] MEDS: Sodium Chloride 0.9% 10 ML Syringe FLUSH PRN ×2 (15:28→15:32)
[2022-04-24] MEDS ORDERED: hydrOXYzine HCl 50 MG/ML SDV IM ONE (16:11)
== END 2022-04-24 17:25 | disposition home or self-care (01) ==
LOC: FB.ED 14:45
DX: L29.9 Pruritus, unspecified (principal); E11.9 Type 2 diabetes mellitus without complications; F45.9 Somatoform disorder, unspecified; I48.91 Unspecified atrial fibrillation; E78.00 Pure hypercholesterolemia, unspecified; I10 Essential (primary) hypertension; Z86.73 Personal history of transient ischemic attack (TIA), and cerebral infarction without residual deficits; Z88.1 Allergy status to other antibiotic agents; Z88.5 Allergy status to narcotic agent; Z88.8 Allergy status to other drugs, medicaments and biological substances; Z88.7 Allergy status to serum and vaccine; Z88.0 Allergy status to penicillin; Z91.041 Radiographic dye allergy status; Z88.2 Allergy status to sulfonamides; Z91.030 Bee allergy status; Z91.012 Allergy to eggs; Z79.899 Other long term (current) drug therapy
CPT/HCPCS: 96372; 96374; 96375; 99283; 99283-25; A9270-GY; J1200; J1642; J2930; J3410; J3490

== ENCOUNTER 2022-10-27 08:21 | Emergency (ER) | payer MEDICARE, OTHER ==
[2022-10-27] MEDS ORDERED: Ondansetron 4 MG/2 ML SDV IVPUSH ONE (08:56)
[2022-10-27] MEDS ORDERED: Sodium Chloride 0.9% 1,000 ML IV SCH ×2 (09:00→10:15)
[2022-10-27] MEDS ORDERED: diphenhydrAMINE 50 MG/ML SDV IVPUSH ONE (09:58)
[2022-10-27] MEDS ORDERED: Prochlorperazine 10 MG in Sodium Chloride 0.9% 50 ML IV ONE (09:58)
[2022-10-27] MEDS ORDERED: LORazepam 2 MG/ML SDV IVPUSH ONE (09:59)
[2022-10-27 10:05] LABS: BLOOD UREA NITROGEN,BUN 11 mg/dL (7-18); BUN/CREATININE RATIO 13.8 (9-20); CALCIUM 8.7 mg/dL (8.6-10.2); CARBON DIOXIDE,CO2 23 mmol/L (21-32); CHLORIDE,CL 102 mmol/L (100-110); CREATININE 0.8 mg/dL (0.55-1.02); ESTIMATED GFR 74 mL/min (>60); GLUCOSE RANDOM 170 mg/dL (80-116); POTASSIUM,K 3.4 mmol/L (3.5-5.3); SODIUM,NA 139 mmol/L (135-145)
[2022-10-27 10:06] LABS: BASOPHILS PERCENT AUTO 0.3 % (0.2-1.5); HEMATOCRIT 37.1 % (34.2-48.2); LYMPHOCYTES ABSOLUTE AUTO 0.9 x10-3/uL (1.0-4.4); LYMPHOCYTES PERCENT AUTO 18.6 % (18.4-52.1); MEAN CORPUSCULAR HEMOGLOBIN 31.6 pg (23.9-33.9); MEAN CORPUSCULAR HGB CONC 32.5 g/dL (31.9-34.8); MEAN CORPUSCULAR VOLUME 97.4 fL (76.7-100.5); MONOCYTES ABSOLUTE AUTO 0.2 x10-3/uL (0.3-1.0); MONOCYTES PERCENT AUTO 5.3 % (4.4-15.7); NEUTROPHILS ABSOLUTE AUTO 3.5 x10-3/uL (1.5-6.3); NEUTROPHILS PERCENT AUTO 75.8 % (30.8-76.2); PLATELET COUNT,PLT 227 x10(3)uL (151-488); RED BLOOD CELL COUNT 3.81 x10(6)uL (3.60-5.20); RED CELL DISTRIBUTION WIDTH 12.6 % (12.3-16.5); WHITE BLOOD CELL COUNT,WBC 4.6 x10-3/uL (3.0-10.3)
[2022-10-27 10:08] LABS: C-REACTIVE PROTEIN 0.06 mg/dL (<0.33)
[2022-10-27 10:11] LABS: ALANINE AMINOTRANSFERASE,ALT 22 U/L (12-36); ALBUMIN 3.4 g/dL (3.2-4.6); ALKALINE PHOSPHATASE 77 IU/L (56-112); ASPARTATE AMNIOTRANSFERASE,AST 17 IU/L (5-25); BILIRUBIN TOTAL 0.3 mg/dL (0.1-1.3); MAGNESIUM 1.4 mg/dL (1.8-2.5); PROTEIN TOTAL,TP 6.7 g/dL (6.0-8.0)
[2022-10-27] MEDS ORDERED: Magnesium Sulfate/Water 2 GM in Premix Bag 1 BAG IV ONE (10:15)
[2022-10-27 11:52] VITALS: PULSE 89
[2022-10-27 12:13] LABS: BILIRUBIN,URINE NEGATIVE (NEGATIVE); GLUCOSE,URINE 100 mg/dL (NORMAL); KETONES,URINE 15 mg/dL (NEGATIVE); LEUKOCYTE ESTERASE,URINE NEGATIVE (NEGATIVE); NITRITE,URINE NEGATIVE (NEGATIVE); OCCULT BLOOD,URINE NEGATIVE (NEGATIVE); PROTEIN,URINE NEGATIVE (NEGATIVE); UROBILINOGEN,URINE NORMAL (NEGATIVE)
[2022-10-27 12:17] LABS: APPEARANCE,URINE CLEAR (CLEAR); BACTERIA,URINE FEW (NS); COLOR,URINE YELLOW (YELLOW); SQUAMOUS EPITHELIAL CELLS,UR OCCASIONAL (NS,R,O); WBC,URINE 0-5 (0-5)
[2022-10-27] MEDS ORDERED: Sodium Chloride 0.9% 10 ML Syringe FLUSH PRN (13:34)
[2022-10-27 14:17] VITALS: BP 182/86
== END 2022-10-27 13:50 | disposition home or self-care (01) ==
LOC: FB.ED 08:21
DX: K52.9 Noninfective gastroenteritis and colitis, unspecified (principal); I48.91 Unspecified atrial fibrillation; I10 Essential (primary) hypertension; E11.9 Type 2 diabetes mellitus without complications; Z88.8 Allergy status to other drugs, medicaments and biological substances; Z88.7 Allergy status to serum and vaccine; Z91.030 Bee allergy status; Z88.1 Allergy status to other antibiotic agents; Z88.5 Allergy status to narcotic agent; Z88.0 Allergy status to penicillin; Z88.2 Allergy status to sulfonamides; Z91.013 Allergy to seafood
CPT/HCPCS: 80053; 81001; 83690; 83735; 85025; 86140; 93005; 96361; 96365; 96366; 96367; 96375; 99284; J0780; J1200; J1642; J2060; J2405; J3475; J3490; J7030

== ENCOUNTER 2022-12-06 02:34 | Emergency (ER) | payer MEDICARE, OTHER ==
[2022-12-06 02:50] VITALS: PULSE 75
[2022-12-06] MEDS: hydrOXYzine HCl 50 MG/ML SDV IM ONE (02:53)
[2022-12-06] MEDS: cloNIDine 0.1 MG Tab PO ONE (02:53)
[2022-12-06] MEDS: LORazepam 2 MG/ML SDV IM ONE (02:53)
[2022-12-06 03:31] VITALS: BP 157/85
== END 2022-12-06 03:31 | disposition home or self-care (01) ==
LOC: FB.ED 02:34
DX: L29.9 Pruritus, unspecified (principal); I48.91 Unspecified atrial fibrillation; I10 Essential (primary) hypertension; E11.9 Type 2 diabetes mellitus without complications; Z88.8 Allergy status to other drugs, medicaments and biological substances; Z88.1 Allergy status to other antibiotic agents; Z88.5 Allergy status to narcotic agent; Z91.012 Allergy to eggs; Z88.7 Allergy status to serum and vaccine; Z91.048 Other nonmedicinal substance allergy status; Z88.6 Allergy status to analgesic agent; Z88.0 Allergy status to penicillin; Z88.2 Allergy status to sulfonamides; Z91.013 Allergy to seafood; Z91.030 Bee allergy status; Z79.899 Other long term (current) drug therapy
CPT/HCPCS: 96372; 99282; A9270-GY; J2060; J3410

== ENCOUNTER 2022-12-08 12:30 | Emergency (ER) | payer MEDICARE, OTHER ==
[2022-12-08 13:46] VITALS: BP 176/71; PULSE 75
== END 2022-12-08 13:30 | disposition home or self-care (01) ==
LOC: FB.ED 12:30
DX: L03.114 Cellulitis of left upper limb (principal); L29.9 Pruritus, unspecified; E11.9 Type 2 diabetes mellitus without complications; I10 Essential (primary) hypertension; Z86.73 Personal history of transient ischemic attack (TIA), and cerebral infarction without residual deficits; Z79.899 Other long term (current) drug therapy; Z91.012 Allergy to eggs; Z88.8 Allergy status to other drugs, medicaments and biological substances; Z88.5 Allergy status to narcotic agent; Z88.1 Allergy status to other antibiotic agents; Z88.0 Allergy status to penicillin; Z88.7 Allergy status to serum and vaccine; Z88.6 Allergy status to analgesic agent
CPT/HCPCS: 99283

== ENCOUNTER 2023-01-29 08:56 | Emergency (ER) | payer MEDICARE, OTHER ==
[2023-01-29] MEDS ORDERED: Ondansetron 4 MG/2 ML SDV IVPUSH ONE (09:00)
[2023-01-29] MEDS ORDERED: Sodium Chloride 0.9% 10 ML Syringe FLUSH PRN (09:44)
[2023-01-29] MEDS ORDERED: Sodium Chloride 0.9% 500 ML IV ONE ×3 (09:44→12:00)
[2023-01-29 09:54] LABS: BASOPHILS PERCENT AUTO 0.5 % (0.2-1.5); EOSINOPHILS PERCENT AUTO 0.1 % (0.6-8.1); HEMATOCRIT 36.1 % (34.2-48.2); HEMOGLOBIN 12.2 g/dL (11.4-15.5); LYMPHOCYTES ABSOLUTE AUTO 1.2 x10-3/uL (1.0-4.4); MEAN CORPUSCULAR HEMOGLOBIN 31.7 pg (23.9-33.9); MEAN CORPUSCULAR HGB CONC 33.9 g/dL (31.9-34.8); MEAN CORPUSCULAR VOLUME 93.5 fL (76.7-100.5); MEAN PLATELET VOLUME 8.5 fL (7.1-12.4); MONOCYTES ABSOLUTE AUTO 0.6 x10-3/uL (0.3-1.0); NEUTROPHILS ABSOLUTE AUTO 5.2 x10-3/uL (1.5-6.3); NEUTROPHILS PERCENT AUTO 74.4 % (30.8-76.2); PLATELET COUNT,PLT 215 x10(3)uL (151-488); RED BLOOD CELL COUNT 3.86 x10(6)uL (3.60-5.20); RED CELL DISTRIBUTION WIDTH 12.5 % (12.3-16.5)
[2023-01-29] MEDS ORDERED: LORazepam 2 MG/ML SDV IVPUSH ONE ×2 (09:55→13:48)
[2023-01-29] MEDS ORDERED: Prochlorperazine 10 MG/2 ML SDV IVPUSH ONE ×2 (09:55→10:17)
[2023-01-29 09:57] LABS: BLOOD UREA NITROGEN,BUN 15 mg/dL (7-18); BUN/CREATININE RATIO 13.6 (9-20); CALCIUM 9.4 mg/dL (8.6-10.2); CARBON DIOXIDE,CO2 21 mmol/L (21-32); CHLORIDE,CL 105 mmol/L (100-110); CREATININE 1.1 mg/dL (0.55-1.02); ESTIMATED GFR 50 mL/min (>60); GLUCOSE RANDOM 164 mg/dL (80-116); POTASSIUM,K 3.4 mmol/L (3.5-5.3); SODIUM,NA 137 mmol/L (135-145)
[2023-01-29 10:03] LABS: A/G RATIO 0.9; ALANINE AMINOTRANSFERASE,ALT 39 U/L (12-36); ALBUMIN 3.3 g/dL (3.2-4.6); ALKALINE PHOSPHATASE 74 IU/L (56-112); ASPARTATE AMNIOTRANSFERASE,AST 23 IU/L (5-25); BILIRUBIN TOTAL 0.4 mg/dL (0.1-1.3); MAGNESIUM 1.3 mg/dL (1.8-2.5); PROTEIN TOTAL,TP 6.8 g/dL (6.0-8.0)
[2023-01-29 10:06] LABS: C-REACTIVE PROTEIN 0.18 mg/dL (<0.33); TROPONIN I 4.3 pg/mL (4.0-60.3)
[2023-01-29 10:20] LABS: BASE EXCESS VENOUS,POC -3 mmol/L (-2 - 3+); PCO2 VENOUS,POC 34 mmHg (41-51); PH VENOUS,POC 7.41 pH Units (7.32-7.43)
[2023-01-29 11:31] LABS: INFLUENZA A NAA NEGATIVE (NEGATIVE); INFLUENZA B NAA NEGATIVE (NEGATIVE); RESPIRATORY SYNCYTIAL VIR NAA NEGATIVE (NEGATIVE)
[2023-01-29 11:32] LABS: CORONAVIRUS COVID-19 NAA NEGATIVE (NEGATIVE)
[2023-01-29] MEDS ORDERED: Magnesium Sulfate/Water 2 GM in Premix Bag 1 BAG IV ONE (11:58)
[2023-01-29] MEDS ORDERED: Potassium Chloride 20 MEQ Tab.ER PO ONE (11:59)
[2023-01-29] MEDS ORDERED: Magnesium Oxide 400 MG Tab PO ONE (11:59)
[2023-01-29] MEDS ORDERED: Ketorolac 30 MG/ML SDV IVPUSH ONE (13:48)
[2023-01-29] MEDS ORDERED: Metoclopramide 10 MG/2 ML SDV IVPUSH ONE (13:48)
[2023-01-29 21:10] VITALS: BP 142/92; PULSE 78
== END 2023-01-29 19:55 | disposition home or self-care (01) ==
LOC: FB.ED 08:56
DX: E86.0 Dehydration (principal); E87.6 Hypokalemia; E83.42 Hypomagnesemia; R11.15 Cyclical vomiting syndrome unrelated to migraine; I48.91 Unspecified atrial fibrillation; I10 Essential (primary) hypertension; E11.9 Type 2 diabetes mellitus without complications; Z88.8 Allergy status to other drugs, medicaments and biological substances; Z88.1 Allergy status to other antibiotic agents; Z88.5 Allergy status to narcotic agent; Z88.0 Allergy status to penicillin; Z88.2 Allergy status to sulfonamides; Z88.7 Allergy status to serum and vaccine; Z91.041 Radiographic dye allergy status; Z91.012 Allergy to eggs; Z91.030 Bee allergy status; Z91.013 Allergy to seafood; Z20.822 Contact with and (suspected) exposure to COVID-19
CPT/HCPCS: 0241U; 36415; 71045; 80053; 83690; 83735; 84484; 85025; 86140; 93005; 96365; 96366; 96375; 96376; 99284; A9270; J0780; J1642; J1885; J2060; J2405; J2765; J3475; J3490; J7040

== ENCOUNTER 2023-06-23 07:17 | Day surgery (SDC) | payer MEDICARE, OTHER ==
[~2023-06-23 07:17] MED LIST: Lactated Ringers 1,000 ML IV SCH; Sodium Chloride 0.9% 10 ML Syringe FLUSH PRN
[2023-06-23] MEDS ORDERED: Propofol 200 MG/20 ML SDV IV ONE (07:18)
[2023-06-23] MEDS: Dextrose 5%-Lactated Ringers 1,000 ML IV SCH (08:00)
[2023-06-23] MEDS ORDERED: Dextrose 5% in Water 1,000 ML IV SCH (08:08)
[2023-06-23] MEDS: Simethicone Drops 40 MG/0.6 ML 30 ML Bottle ONE (09:36)
[2023-06-23 11:39] VITALS: BP 131/84; PULSE 75
== END 2023-06-23 11:18 | disposition home or self-care (01) ==
LOC: FB.SDS 07:17
PROVIDERS: ATTEND Surgery
DX: K29.50 Unspecified chronic gastritis without bleeding (principal); R10.13 Epigastric pain; R11.0 Nausea; I10 Essential (primary) hypertension; E78.5 Hyperlipidemia, unspecified; E11.9 Type 2 diabetes mellitus without complications; K52.9 Noninfective gastroenteritis and colitis, unspecified; R63.4 Abnormal weight loss; Z87.891 Personal history of nicotine dependence; Z79.899 Other long term (current) drug therapy; Z88.5 Allergy status to narcotic agent; Z88.0 Allergy status to penicillin
CPT/HCPCS: 00731; 82947; 88305; 99100; A9270-GY; J2704; J7121

== ENCOUNTER 2023-06-26 17:42 | Emergency (ER) | payer MEDICARE, OTHER ==
[2023-06-26] MEDS: Prochlorperazine 10 MG/2 ML SDV IVPUSH ONE (18:11)
[2023-06-26] MEDS: Sodium Chloride 0.9% 1,000 ML IV SCH (18:12)
[2023-06-26 18:20] LABS: BASOPHILS PERCENT AUTO 0.6 % (0.2-1.5); EOSINOPHILS PERCENT AUTO 0.3 % (0.6-8.1); HEMATOCRIT 35.6 % (34.2-48.2); HEMOGLOBIN 11.7 g/dL (11.4-15.5); LYMPHOCYTES PERCENT AUTO 22.7 % (18.4-52.1); MEAN CORPUSCULAR HEMOGLOBIN 32.1 pg (23.9-33.9); MEAN CORPUSCULAR HGB CONC 32.8 g/dL (31.9-34.8); MEAN CORPUSCULAR VOLUME 97.7 fL (76.7-100.5); MEAN PLATELET VOLUME 8.7 fL (7.1-12.4); MONOCYTES ABSOLUTE AUTO 0.4 x10-3/uL (0.3-1.0); MONOCYTES PERCENT AUTO 8.2 % (4.4-15.7); NEUTROPHILS PERCENT AUTO 68.2 % (30.8-76.2); PLATELET COUNT,PLT 195 x10(3)uL (151-488); RED BLOOD CELL COUNT 3.64 x10(6)uL (3.60-5.20); RED CELL DISTRIBUTION WIDTH 12.4 % (12.3-16.5); WHITE BLOOD CELL COUNT,WBC 4.4 x10-3/uL (3.0-10.3)
[2023-06-26 18:21] LABS: BLOOD UREA NITROGEN,BUN 8 mg/dL (7-18); CALCIUM 9.4 mg/dL (8.6-10.2); CARBON DIOXIDE,CO2 28 mmol/L (21-32); CHLORIDE,CL 100 mmol/L (100-110); CREATININE 0.8 mg/dL (0.55-1.02); ESTIMATED GFR 74 mL/min (>60); GLUCOSE RANDOM 195 mg/dL (80-116); POTASSIUM,K 3.1 mmol/L (3.5-5.3); SODIUM,NA 136 mmol/L (135-145)
[2023-06-26 18:27] LABS: A/G RATIO 0.7; ALANINE AMINOTRANSFERASE,ALT 26 U/L (12-36); ALBUMIN 2.7 g/dL (3.2-4.6); ALKALINE PHOSPHATASE 61 IU/L (56-112); AMYLASE 28 U/L (25-115); ASPARTATE AMNIOTRANSFERASE,AST 19 IU/L (5-25); BILIRUBIN TOTAL 0.4 mg/dL (0.1-1.3); PROTEIN TOTAL,TP 6.7 g/dL (6.0-8.0)
[2023-06-26 18:37] LABS: LACTIC ACID 1.9 mmol/L (0.4-2.0)
[2023-06-26 19:03] LABS: BILIRUBIN,URINE NEGATIVE (NEGATIVE); GLUCOSE,URINE 250 mg/dL (NORMAL); KETONES,URINE 15 mg/dL (NEGATIVE); LEUKOCYTE ESTERASE,URINE NEGATIVE (NEGATIVE); NITRITE,URINE NEGATIVE (NEGATIVE); OCCULT BLOOD,URINE NEGATIVE (NEGATIVE); PH,URINE 6.5 (5.0-6.5); PROTEIN,URINE NEGATIVE (NEGATIVE); UROBILINOGEN,URINE NORMAL (NEGATIVE)
[2023-06-26 19:09] LABS: APPEARANCE,URINE CLEAR (CLEAR); BACTERIA,URINE RARE (NS); COLOR,URINE YELLOW (YELLOW); RBC,URINE 0-5 (0-5); SQUAMOUS EPITHELIAL CELLS,UR OCCASIONAL (NS,R,O); WBC,URINE 0-5 (0-5)
[2023-06-26 19:11] LABS: AMPHETAMINES SCREEN, URINE NEGATIVE (NEGATIVE); BARBITURATE SCREEN,URINE NEGATIVE (NEGATIVE); METHADONE SCREEN, URINE NEGATIVE (NEGATIVE); METHAMPHETAMINE SCREEN, URINE NEGATIVE (NEGATIVE); OXYCODONE SCREEN,URINE NEGATIVE (NEGATIVE); THC SCREEN,URINE NEGATIVE (NEGATIVE)
[2023-06-26 19:12] LABS: BENZODIAZEPINES SCREEN,URINE POSITIVE (NEGATIVE); BUPRENORPHINE SCREEN,URINE NEGATIVE (NEGATIVE)
[2023-06-26] MEDS: Prochlorperazine 5 MG Tab PO ONE (20:39)
[2023-06-26 20:47] VITALS: BP 144/78; PULSE 78
== END 2023-06-26 20:40 | disposition home or self-care (01) ==
LOC: FB.ED 17:42
DX: R11.15 Cyclical vomiting syndrome unrelated to migraine (principal); K52.9 Noninfective gastroenteritis and colitis, unspecified; L29.9 Pruritus, unspecified; I10 Essential (primary) hypertension; E78.00 Pure hypercholesterolemia, unspecified; I48.91 Unspecified atrial fibrillation; Z86.73 Personal history of transient ischemic attack (TIA), and cerebral infarction without residual deficits; E11.9 Type 2 diabetes mellitus without complications; J45.909 Unspecified asthma, uncomplicated; Z90.710 Acquired absence of both cervix and uterus; Z79.899 Other long term (current) drug therapy; Z91.012 Allergy to eggs; Z88.8 Allergy status to other drugs, medicaments and biological substances; Z91.041 Radiographic dye allergy status; Z88.5 Allergy status to narcotic agent; Z88.6 Allergy status to analgesic agent; Z88.2 Allergy status to sulfonamides; Z88.7 Allergy status to serum and vaccine; Z91.013 Allergy to seafood; Z91.048 Other nonmedicinal substance allergy status; Z88.1 Allergy status to other antibiotic agents
CPT/HCPCS: 80053; 80307; 81001; 82150; 83605; 83690; 84484; 85025; 93005; 93010; 96361; 96374; 99284; J0780; J1642; J7030; Q0164

== ENCOUNTER 2023-06-28 13:48 | Emergency (ER) | payer MEDICARE, OTHER ==
[2023-06-28] MEDS ORDERED: Sodium Chloride 0.9% 10 ML Syringe FLUSH PRN (14:06)
[2023-06-28] MEDS: Ondansetron 4 MG/2 ML SDV IVPUSH ONE (14:40)
[2023-06-28] MEDS: Sodium Chloride 0.9% 1,000 ML IV SCH (14:40)
[2023-06-28 14:50] LABS: BASOPHILS PERCENT AUTO 0.6 % (0.2-1.5); EOSINOPHILS PERCENT AUTO 0.3 % (0.6-8.1); HEMOGLOBIN 11.1 g/dL (11.4-15.5); LYMPHOCYTES ABSOLUTE AUTO 0.8 x10-3/uL (1.0-4.4); LYMPHOCYTES PERCENT AUTO 21.4 % (18.4-52.1); MEAN CORPUSCULAR HEMOGLOBIN 31.9 pg (23.9-33.9); MEAN CORPUSCULAR HGB CONC 32.7 g/dL (31.9-34.8); MEAN CORPUSCULAR VOLUME 97.4 fL (76.7-100.5); MEAN PLATELET VOLUME 8.1 fL (7.1-12.4); MONOCYTES ABSOLUTE AUTO 0.4 x10-3/uL (0.3-1.0); MONOCYTES PERCENT AUTO 9.4 % (4.4-15.7); NEUTROPHILS ABSOLUTE AUTO 2.7 x10-3/uL (1.5-6.3); NEUTROPHILS PERCENT AUTO 68.3 % (30.8-76.2); PLATELET COUNT,PLT 209 x10(3)uL (151-488); RED BLOOD CELL COUNT 3.49 x10(6)uL (3.60-5.20); WHITE BLOOD CELL COUNT,WBC 3.9 x10-3/uL (3.0-10.3)
[2023-06-28 14:55] LABS: BLOOD UREA NITROGEN,BUN 12 mg/dL (7-18); BUN/CREATININE RATIO 13.3 (9-20); CALCIUM 8.7 mg/dL (8.6-10.2); CARBON DIOXIDE,CO2 27 mmol/L (21-32); CHLORIDE,CL 105 mmol/L (100-110); CREATININE 0.9 mg/dL (0.55-1.02); ESTIMATED GFR 64 mL/min (>60); GLUCOSE RANDOM 198 mg/dL (80-116); SODIUM,NA 140 mmol/L (135-145)
[2023-06-28] MEDS: Potassium Chloride 20 MEQ Tab.ER PO STA (15:30)
[2023-06-28 17:19] VITALS: BP 162/49; PULSE 89
== END 2023-06-28 17:00 | disposition home or self-care (01) ==
LOC: FB.ED 13:48
DX: R11.15 Cyclical vomiting syndrome unrelated to migraine (principal); F45.9 Somatoform disorder, unspecified; E87.6 Hypokalemia; I10 Essential (primary) hypertension; E78.00 Pure hypercholesterolemia, unspecified; J45.909 Unspecified asthma, uncomplicated; K21.9 Gastro-esophageal reflux disease without esophagitis; E11.9 Type 2 diabetes mellitus without complications; Z86.73 Personal history of transient ischemic attack (TIA), and cerebral infarction without residual deficits; Z79.899 Other long term (current) drug therapy; Z91.012 Allergy to eggs; Z88.6 Allergy status to analgesic agent; Z88.5 Allergy status to narcotic agent; Z88.8 Allergy status to other drugs, medicaments and biological substances; Z88.1 Allergy status to other antibiotic agents; Z88.7 Allergy status to serum and vaccine; Z91.041 Radiographic dye allergy status; Z88.0 Allergy status to penicillin; Z91.013 Allergy to seafood; Z88.2 Allergy status to sulfonamides
CPT/HCPCS: 36415; 80048; 85025; 96361; 96374; 99283; A9270; J1642; J2405; J7030; 99284

== ENCOUNTER 2023-06-29 12:11 | Inpatient (IN) | payer MEDICARE, OTHER ==
[2023-06-29 13:04] LABS: BASOPHILS PERCENT AUTO 0.2 % (0.2-1.5); EOSINOPHILS PERCENT AUTO 0.1 % (0.6-8.1); HEMOGLOBIN 11.9 g/dL (11.4-15.5); LYMPHOCYTES ABSOLUTE AUTO 1.2 x10-3/uL (1.0-4.4); LYMPHOCYTES PERCENT AUTO 19.6 % (18.4-52.1); MEAN CORPUSCULAR HEMOGLOBIN 32.1 pg (23.9-33.9); MEAN CORPUSCULAR HGB CONC 33.1 g/dL (31.9-34.8); MEAN CORPUSCULAR VOLUME 96.9 fL (76.7-100.5); MEAN PLATELET VOLUME 7.9 fL (7.1-12.4); MONOCYTES ABSOLUTE AUTO 0.7 x10-3/uL (0.3-1.0); MONOCYTES PERCENT AUTO 11.5 % (4.4-15.7); NEUTROPHILS ABSOLUTE AUTO 4.2 x10-3/uL (1.5-6.3); NEUTROPHILS PERCENT AUTO 68.6 % (30.8-76.2); PLATELET COUNT,PLT 247 x10(3)uL (151-488); RED BLOOD CELL COUNT 3.71 x10(6)uL (3.60-5.20); RED CELL DISTRIBUTION WIDTH 12.5 % (12.3-16.5); WHITE BLOOD CELL COUNT,WBC 6.1 x10-3/uL (3.0-10.3)
[2023-06-29 13:07] LABS: BLOOD UREA NITROGEN,BUN 9 mg/dL (7-18); BUN/CREATININE RATIO 11.3 (9-20); CALCIUM 9.1 mg/dL (8.6-10.2); CARBON DIOXIDE,CO2 26 mmol/L (21-32); CHLORIDE,CL 99 mmol/L (100-110); CREATININE 0.8 mg/dL (0.55-1.02); ESTIMATED GFR 74 mL/min (>60); GLUCOSE RANDOM 161 mg/dL (80-116); POTASSIUM,K 3.4 mmol/L (3.5-5.3); SODIUM,NA 135 mmol/L (135-145)
[2023-06-29 13:13] LABS: A/G RATIO 0.8; ALANINE AMINOTRANSFERASE,ALT 27 U/L (12-36); ALBUMIN 2.9 g/dL (3.2-4.6); ALKALINE PHOSPHATASE 62 IU/L (56-112); ASPARTATE AMNIOTRANSFERASE,AST 18 IU/L (5-25); BILIRUBIN TOTAL 0.3 mg/dL (0.1-1.3); MAGNESIUM 1.8 mg/dL (1.8-2.5); PROTEIN TOTAL,TP 6.7 g/dL (6.0-8.0)
[2023-06-29] MEDS: Sodium Chloride 0.9% 1,000 ML IV ONE ×2 (13:14→14:24)
[2023-06-29] MEDS: LORazepam 2 MG/ML SDV IVPUSH ONE (13:15)
[2023-06-29] MEDS: Haloperidol Lactate 5 MG/ML SDV IV ONE (13:16)
[2023-06-29] MEDS: Potassium Chloride 10 MEQ in Premix Bag 1 BAG IV ONE (15:08)
[2023-06-29] MEDS: Sodium Chloride 0.9% 1,000 ML IV SCH (16:53)
[2023-06-29] MEDS: Metoclopramide 10 MG/2 ML SDV IVPUSH ONE (17:50)
[2023-06-29] MEDS ORDERED: Ondansetron 4 MG/2 ML SDV IV PRN (18:20)
[2023-06-29] MEDS ORDERED: Acetaminophen 325 MG Tab PO PRN (18:20)
[2023-06-29] MEDS: Pantoprazole 40 MG Vial IVPUSH SCH (20:18)
[2023-06-30] MEDS: Metoclopramide 10 MG/2 ML SDV IVPUSH SCH (00:06)
[2023-06-30] MEDS: Sodium Chloride 0.9% 1,000 ML IV SCH (00:14)
[2023-06-30 06:51] LABS: BASOPHILS PERCENT AUTO 0.4 % (0.2-1.5); EOSINOPHILS PERCENT AUTO 0.3 % (0.6-8.1); HEMATOCRIT 34.3 % (34.2-48.2); HEMOGLOBIN 11.5 g/dL (11.4-15.5); LYMPHOCYTES ABSOLUTE AUTO 2.1 x10-3/uL (1.0-4.4); LYMPHOCYTES PERCENT AUTO 32.9 % (18.4-52.1); MEAN CORPUSCULAR HEMOGLOBIN 32.3 pg (23.9-33.9); MEAN CORPUSCULAR HGB CONC 33.5 g/dL (31.9-34.8); MEAN CORPUSCULAR VOLUME 96.5 fL (76.7-100.5); MEAN PLATELET VOLUME 7.7 fL (7.1-12.4); MONOCYTES ABSOLUTE AUTO 0.7 x10-3/uL (0.3-1.0); MONOCYTES PERCENT AUTO 10.4 % (4.4-15.7); NEUTROPHILS ABSOLUTE AUTO 3.5 x10-3/uL (1.5-6.3); PLATELET COUNT,PLT 239 x10(3)uL (151-488); RED BLOOD CELL COUNT 3.55 x10(6)uL (3.60-5.20); RED CELL DISTRIBUTION WIDTH 12.6 % (12.3-16.5); WHITE BLOOD CELL COUNT,WBC 6.3 x10-3/uL (3.0-10.3)
[2023-06-30 06:57] LABS: BLOOD UREA NITROGEN,BUN 5 mg/dL (7-18); BUN/CREATININE RATIO 8.3 (9-20); CALCIUM 8.7 mg/dL (8.6-10.2); CARBON DIOXIDE,CO2 27 mmol/L (21-32); CHLORIDE,CL 102 mmol/L (100-110); CREATININE 0.6 mg/dL (0.55-1.02); ESTIMATED GFR 90 mL/min (>60); GLUCOSE RANDOM 111 mg/dL (80-116); POTASSIUM,K 3.2 mmol/L (3.5-5.3); SODIUM,NA 135 mmol/L (135-145)
[2023-06-30] MEDS ORDERED: ClonazePAM 1 MG Tab PO PRN (09:19)
[2023-06-30] MEDS ORDERED: Pantoprazole 40 MG Tab.CR PO SCH (09:30)
[2023-06-30] MEDS: Budesonide 3 MG Cap.ER PO SCH (10:46)
[2023-06-30] MEDS: Potassium Chloride 20 MEQ Tab.ER PO SCH (10:46)
[2023-06-30] MEDS: Enoxaparin 40 MG/0.4 ML Syringe SUBCUT SCH (10:47)
[2023-06-30] MEDS: Ondansetron 4 MG Tab.DIS PO PRN (19:48)
[2023-06-30] MEDS: Mirtazapine 15 MG Tab PO SCH (21:05)
[2023-06-30] MEDS: rOPINIRole 1 MG Tab PO SCH (21:05)
[2023-06-30] MEDS: Rosuvastatin 10 MG Tab PO SCH (21:05)
[2023-06-30] MEDS: LORazepam 2 MG/ML SDV IVPUSH PRN (21:28)
[2023-07-01 07:04] LABS: BLOOD UREA NITROGEN,BUN 3 mg/dL (7-18); CALCIUM 8.7 mg/dL (8.6-10.2); CARBON DIOXIDE,CO2 27 mmol/L (21-32); CHLORIDE,CL 98 mmol/L (100-110); CREATININE 0.6 mg/dL (0.55-1.02); ESTIMATED GFR 90 mL/min (>60); GLUCOSE RANDOM 113 mg/dL (80-116); POTASSIUM,K 3.5 mmol/L (3.5-5.3); SODIUM,NA 131 mmol/L (135-145)
[2023-07-01] MEDS: Pantoprazole 40 MG Vial IVPUSH SCH (09:01)
[2023-07-01] MEDS: Sodium Chloride 0.9% 10 ML Syringe FLUSH PRN (09:12)
[2023-07-01] MEDS: Ondansetron 4 MG Tab.DIS PO SCH (09:58)
[2023-07-01] MEDS: ClonazePAM 1 MG Tab PO SCH (09:58)
[2023-07-01 11:12] LABS: ALBUMIN 2.7 g/dL (3.2-4.6); BILIRUBIN DIRECT 0.15 mg/dL (0.10-0.20); BILIRUBIN TOTAL 0.3 mg/dL (0.1-1.3)
[2023-07-02 14:08] VITALS: BP 145/85; PULSE 88
== END 2023-07-02 10:45 | disposition home or self-care (01) | DRG 394 ==
LOC: FB.ED 12:11 → FB.MS 13:07 → OBSVTOIN 06-30 09:18
PROVIDERS: ADMIT Emergency Medicine; ATTEND Family Medicine
DX: R11.15 Cyclical vomiting syndrome unrelated to migraine (principal); E87.1 Hypo-osmolality and hyponatremia; E86.0 Dehydration; R10.84 Generalized abdominal pain; H91.90 Unspecified hearing loss, unspecified ear; I48.91 Unspecified atrial fibrillation; E78.00 Pure hypercholesterolemia, unspecified; I10 Essential (primary) hypertension; J45.909 Unspecified asthma, uncomplicated; Z96.659 Presence of unspecified artificial knee joint; E11.9 Type 2 diabetes mellitus without complications; Z88.2 Allergy status to sulfonamides; F32.A Depression, unspecified; Z88.6 Allergy status to analgesic agent; F41.9 Anxiety disorder, unspecified; K59.09 Other constipation; Z91.041 Radiographic dye allergy status; K21.9 Gastro-esophageal reflux disease without esophagitis; Z91.012 Allergy to eggs; E87.6 Hypokalemia; F45.9 Somatoform disorder, unspecified; Z66 Do not resuscitate; K52.9 Noninfective gastroenteritis and colitis, unspecified; K57.90 Diverticulosis of intestine, part unspecified, without perforation or abscess without bleeding; Z51.5 Encounter for palliative care; Z79.899 Other long term (current) drug therapy; Z88.1 Allergy status to other antibiotic agents; Z88.5 Allergy status to narcotic agent; Z88.7 Allergy status to serum and vaccine; Z88.0 Allergy status to penicillin; Z91.048 Other nonmedicinal substance allergy status; Z98.49 Cataract extraction status, unspecified eye; Z90.710 Acquired absence of both cervix and uterus; Z98.890 Other specified postprocedural states; Z90.49 Acquired absence of other specified parts of digestive tract; Z86.73 Personal history of transient ischemic attack (TIA), and cerebral infarction without residual deficits
CPT/HCPCS: 36415; 74176; 80048; 80053; 80076; 82150; 82272; 83605; 83690; 83735; 84132; 85025; 93005; 93010; 96361; 96365; 96375; 96376; 99222; 99232; 99238; 99285; 99285-25; A9270-GY; C9113; G0378; J1630; J1642; J1650; J2060; J2765; J3480; J3490; J7030; Q0162

== ENCOUNTER 2023-07-09 11:16 | Emergency (ER) | payer MEDICARE, OTHER ==
[2023-07-09] MEDS: Sodium Chloride 0.9% 1,000 ML IV ONE (11:44)
[2023-07-09 11:50] LABS: BASOPHILS ABSOLUTE AUTO 0.1 x10-3/uL (0.0-0.1); BASOPHILS PERCENT AUTO 0.7 % (0.2-1.5); EOSINOPHILS ABSOLUTE AUTO 0.1 x10-3/uL (0.0-0.8); EOSINOPHILS PERCENT AUTO 0.8 % (0.6-8.1); HEMATOCRIT 37.2 % (34.2-48.2); LYMPHOCYTES ABSOLUTE AUTO 1.8 x10-3/uL (1.0-4.4); LYMPHOCYTES PERCENT AUTO 23.8 % (18.4-52.1); MEAN CORPUSCULAR HEMOGLOBIN 32.2 pg (23.9-33.9); MEAN CORPUSCULAR HGB CONC 32.3 g/dL (31.9-34.8); MEAN CORPUSCULAR VOLUME 99.5 fL (76.7-100.5); MEAN PLATELET VOLUME 7.7 fL (7.1-12.4); MONOCYTES ABSOLUTE AUTO 0.8 x10-3/uL (0.3-1.0); MONOCYTES PERCENT AUTO 10.2 % (4.4-15.7); NEUTROPHILS ABSOLUTE AUTO 4.8 x10-3/uL (1.5-6.3); NEUTROPHILS PERCENT AUTO 64.5 % (30.8-76.2); PLATELET COUNT,PLT 232 x10(3)uL (151-488); RED BLOOD CELL COUNT 3.73 x10(6)uL (3.60-5.20); RED CELL DISTRIBUTION WIDTH 12.9 % (12.3-16.5); WHITE BLOOD CELL COUNT,WBC 7.5 x10-3/uL (3.0-10.3)
[2023-07-09 11:56] LABS: BLOOD UREA NITROGEN,BUN 10 mg/dL (7-18); BUN/CREATININE RATIO 14.3 (9-20); CALCIUM 8.9 mg/dL (8.6-10.2); CARBON DIOXIDE,CO2 26 mmol/L (21-32); CHLORIDE,CL 104 mmol/L (100-110); CREATININE 0.7 mg/dL (0.55-1.02); EST CRCL DRUG DOSING (CG) 51.26 mL/min; ESTIMATED GFR 86 mL/min (>60); GLUCOSE RANDOM 111 mg/dL (80-116); POTASSIUM,K 3.5 mmol/L (3.5-5.3); SODIUM,NA 139 mmol/L (135-145)
[2023-07-09 12:02] LABS: A/G RATIO 0.7; ALANINE AMINOTRANSFERASE,ALT 43 U/L (12-36); ALBUMIN 2.7 g/dL (3.2-4.6); ALKALINE PHOSPHATASE 50 IU/L (56-112); ASPARTATE AMNIOTRANSFERASE,AST 30 IU/L (5-25); BILIRUBIN TOTAL 0.3 mg/dL (0.1-1.3); MAGNESIUM 1.9 mg/dL (1.8-2.5); PROTEIN TOTAL,TP 6.4 g/dL (6.0-8.0)
[2023-07-09 12:04] LABS: LIPASE 23 U/L (16-77)
[2023-07-09 12:07] LABS: C-REACTIVE PROTEIN < 0.50 mg/dL (<0.50); TROPONIN I < 4.0 pg/mL (4.0-60.3)
[2023-07-09 14:31] LABS: BILIRUBIN,URINE NEGATIVE (NEGATIVE); GLUCOSE,URINE NORMAL (NORMAL); KETONES,URINE NEGATIVE (NEGATIVE); LEUKOCYTE ESTERASE,URINE NEGATIVE (NEGATIVE); NITRITE,URINE NEGATIVE (NEGATIVE); OCCULT BLOOD,URINE NEGATIVE (NEGATIVE); PROTEIN,URINE NEGATIVE (NEGATIVE); UROBILINOGEN,URINE NORMAL (NEGATIVE)
[2023-07-09 14:44] LABS: APPEARANCE,URINE CLEAR (CLEAR); BACTERIA,URINE FEW (NS); COLOR,URINE YELLOW (YELLOW); MUCUS,URINE FEW (NS); RBC,URINE 0-5 (0-5); SQUAMOUS EPITHELIAL CELLS,UR OCCASIONAL (NS,R,O); WBC,URINE 0-5 (0-5)
[2023-07-09 15:07] VITALS: BP 165/68; PULSE 86
== END 2023-07-09 14:35 | disposition home or self-care (01) ==
LOC: FB.ED 11:16
DX: E86.0 Dehydration (principal); R40.4 Transient alteration of awareness; F45.0 Somatization disorder; I10 Essential (primary) hypertension; J45.909 Unspecified asthma, uncomplicated; E11.9 Type 2 diabetes mellitus without complications; Z86.73 Personal history of transient ischemic attack (TIA), and cerebral infarction without residual deficits; Z79.899 Other long term (current) drug therapy; Z88.0 Allergy status to penicillin; Z88.1 Allergy status to other antibiotic agents; Z88.2 Allergy status to sulfonamides; Z88.5 Allergy status to narcotic agent; Z88.6 Allergy status to analgesic agent; Z88.8 Allergy status to other drugs, medicaments and biological substances; Z91.018 Allergy to other foods; Z91.012 Allergy to eggs; Z91.048 Other nonmedicinal substance allergy status; Z88.7 Allergy status to serum and vaccine; Z91.041 Radiographic dye allergy status
CPT/HCPCS: 80053; 81001; 83605; 83690; 83735; 84484; 85025; 86140; 93005; 93010; 96360; 99284; 99285; J1642; J7030

== ENCOUNTER 2023-07-14 09:51 | Emergency (ER) | payer MEDICARE, OTHER ==
[2023-07-14] MEDS: Sodium Chloride 0.9% 1,000 ML IV ONE ×2 (10:23→12:14)
[2023-07-14 10:35] LABS: BASOPHILS PERCENT AUTO 0.7 % (0.2-1.5); EOSINOPHILS ABSOLUTE AUTO 0.1 x10-3/uL (0.0-0.8); EOSINOPHILS PERCENT AUTO 1.8 % (0.6-8.1); HEMOGLOBIN 11.4 g/dL (11.4-15.5); LYMPHOCYTES ABSOLUTE AUTO 1.4 x10-3/uL (1.0-4.4); MEAN CORPUSCULAR HEMOGLOBIN 32.2 pg (23.9-33.9); MEAN CORPUSCULAR HGB CONC 32.4 g/dL (31.9-34.8); MEAN CORPUSCULAR VOLUME 99.2 fL (76.7-100.5); MEAN PLATELET VOLUME 7.9 fL (7.1-12.4); MONOCYTES ABSOLUTE AUTO 0.7 x10-3/uL (0.3-1.0); MONOCYTES PERCENT AUTO 11.5 % (4.4-15.7); PLATELET COUNT,PLT 208 x10(3)uL (151-488); RED BLOOD CELL COUNT 3.53 x10(6)uL (3.60-5.20); RED CELL DISTRIBUTION WIDTH 13.4 % (12.3-16.5); WHITE BLOOD CELL COUNT,WBC 6.3 x10-3/uL (3.0-10.3)
[2023-07-14 10:40] LABS: BLOOD UREA NITROGEN,BUN 10 mg/dL (7-18); BUN/CREATININE RATIO 12.5 (9-20); CALCIUM 9.2 mg/dL (8.6-10.2); CARBON DIOXIDE,CO2 27 mmol/L (21-32); CHLORIDE,CL 107 mmol/L (100-110); CREATININE 0.8 mg/dL (0.55-1.02); EST CRCL DRUG DOSING (CG) 44.85 mL/min; ESTIMATED GFR 74 mL/min (>60); GLUCOSE RANDOM 128 mg/dL (80-116); SODIUM,NA 141 mmol/L (135-145)
[2023-07-14 10:46] LABS: A/G RATIO 0.7; ALANINE AMINOTRANSFERASE,ALT 52 U/L (12-36); ALBUMIN 2.5 g/dL (3.2-4.6); ALKALINE PHOSPHATASE 56 IU/L (56-112); ASPARTATE AMNIOTRANSFERASE,AST 24 IU/L (5-25); BILIRUBIN TOTAL 0.3 mg/dL (0.1-1.3); MAGNESIUM 1.9 mg/dL (1.8-2.5); PROTEIN TOTAL,TP 6.1 g/dL (6.0-8.0)
[2023-07-14] MEDS: Sodium Chloride 0.9% 500 ML IV ONE (14:17)
[2023-07-14 14:25] LABS: BASE EXCESS VENOUS,POC -4 mmol/L (-2 - 3+); PCO2 VENOUS,POC 46 mmHg (41-51); PH VENOUS,POC 7.31 pH Units (7.32-7.43)
[2023-07-14 16:51] LABS: BILIRUBIN,URINE NEGATIVE (NEGATIVE); GLUCOSE,URINE NORMAL (NORMAL); KETONES,URINE NEGATIVE (NEGATIVE); LEUKOCYTE ESTERASE,URINE NEGATIVE (NEGATIVE); NITRITE,URINE NEGATIVE (NEGATIVE); OCCULT BLOOD,URINE NEGATIVE (NEGATIVE); PROTEIN,URINE NEGATIVE (NEGATIVE); UROBILINOGEN,URINE NORMAL (NEGATIVE)
[2023-07-14 16:53] VITALS: BP 152/65; PULSE 75
[2023-07-14 16:57] LABS: APPEARANCE,URINE CLEAR (CLEAR); BACTERIA,URINE OCCASIONAL (NS); COLOR,URINE YELLOW (YELLOW); RBC,URINE 0-5 (0-5); SQUAMOUS EPITHELIAL CELLS,UR RARE (NS,R,O); WBC,URINE 0-5 (0-5)
== END 2023-07-14 16:25 | disposition home or self-care (01) ==
LOC: FB.ED 09:51
DX: E86.0 Dehydration (principal); R19.7 Diarrhea, unspecified; E87.20 Acidosis, unspecified; E78.00 Pure hypercholesterolemia, unspecified; I10 Essential (primary) hypertension; K21.9 Gastro-esophageal reflux disease without esophagitis; E11.9 Type 2 diabetes mellitus without complications; Z86.19 Personal history of other infectious and parasitic diseases; Z79.899 Other long term (current) drug therapy; Z88.5 Allergy status to narcotic agent; Z88.1 Allergy status to other antibiotic agents; Z91.048 Other nonmedicinal substance allergy status; Z88.8 Allergy status to other drugs, medicaments and biological substances; Z88.7 Allergy status to serum and vaccine; Z91.014 Allergy to mammalian meats; Z88.0 Allergy status to penicillin; Z91.013 Allergy to seafood; Z88.6 Allergy status to analgesic agent; Z88.2 Allergy status to sulfonamides; Z91.012 Allergy to eggs; Z91.030 Bee allergy status
CPT/HCPCS: 74176; 80053; 81001; 83605; 83735; 85025; 87230; 96360; 96361; 99283; 99285-25; J1642; J7030; J7040

== ENCOUNTER 2024-07-02 08:24 | Day surgery (SDC) | payer MEDICARE, OTHER ==
[~2024-07-02 08:24] MED LIST changes: -Sodium Chloride 0.9% 10 ML Syringe FLUSH PRN
[2024-07-02] MEDS ORDERED: Propofol 200 MG/20 ML SDV IV ONE (08:25)
[2024-07-02] MEDS ORDERED: Lactated Ringers 1,000 ML IV SCH (09:45)
[2024-07-02] MEDS: Simethicone Drops 40 MG/0.6 ML 30 ML Bottle ONE (10:06)
[2024-07-02] MEDS: Lactated Ringers 1,000 ML IV PRN (11:25)
[2024-07-02] MEDS: Sodium Chloride 0.9% 10 ML Syringe FLUSH PRN (11:28)
[2024-07-02 12:35] VITALS: BP 132/59; PULSE 65
[2024-07-03 23:35] LABS: LACTOFERRIN,FECAL BY ELISA Negative (Negative)
[2024-07-04 23:56] LABS: ADENOVIRUS 40/41 PCR Not Detected; ASTROVIRUS PCR Not Detected; CAMPYLOBACTER PCR Not Detected; CRYPTOSPORIDIUM PCR Not Detected; CYCLOSPORA CAYETANENSIS PCR Not Detected; ENTAMOEBA HISTOLYTICA PCR Not Detected; ENTEROAGGREGATIVE E. COLI PCR Not Detected; ENTEROPATHOGENIC E. COLI PCR Not Detected; ENTEROTOXIGENIC E. COLI PCR Not Detected; GIARDIA LAMBLIA PCR Not Detected; NOROVIRUS GI/GII PCR Not Detected; PLESIOMONAS SHIGELLOIDES PCR Not Detected; ROTAVIRUS A PCR Not Detected; SALMONELLA PCR Not Detected; SAPOVIRUS PCR Not Detected; SHIG/ENTEROINVASIVE E COLI PCR Not Detected; SHIGA TOXIN-PRODUC E. COLI PCR Not Detected; VIBRIO CHOLERAE PCR Not Detected; VIBRIO PCR Not Detected; YERSINIA ENTEROCOLITICA PCR Not Detected
== END 2024-07-02 12:00 | disposition home or self-care (01) ==
LOC: FB.SDS 08:24
PROVIDERS: ATTEND Surgery
DX: K57.30 Diverticulosis of large intestine without perforation or abscess without bleeding (principal); E11.9 Type 2 diabetes mellitus without complications; J45.909 Unspecified asthma, uncomplicated; I10 Essential (primary) hypertension; F41.9 Anxiety disorder, unspecified; Z79.899 Other long term (current) drug therapy
CPT/HCPCS: 00811; 83630; 87507; 88305; 99100; A9270-GY; J1642; J2704; J7120